=== PATIENT | male | born 1975 | race Caucasian/White ===

== ENCOUNTER → 2016-07-18 | Outpatient (REF) | payer OTHER ==
[2016-07-18 12:31] LABS: ALBUMIN 3.7 GM/DL (3.2-5.2); ALKALINE PHOSPHATASE 96 U/L (45-117); ALT/SGPT 94 U/L (12-78); ANION GAP 12 MEQ/L (8-16); AST/SGOT 124 U/L (15-37); BILIRUBIN,TOTAL 0.8 MG/DL (0.2-1.0); BLOOD UREA NITROGEN 8 MG/DL (7-18); CARBON DIOXIDE LEVEL 29 MEQ/L (21-32); CHLORIDE LEVEL 99 MEQ/L (98-107); CHOLESTEROL LEVEL 240 MG/DL (<200); CREATININE FOR GFR 0.87 MG/DL (0.70-1.30); GLOMERULAR FILTRATION RATE > 60.0 (>60); GLUCOSE, FASTING 172 MG/DL (70-105); SODIUM LEVEL 140 MEQ/L (136-145); TOTAL PROTEIN 7.4 GM/DL (6.4-8.2); TRIGLYCERIDES LEVEL 218 MG/DL (<150); URIC ACID 5.2 MG/DL (3.5-7.2)
== END ==
LOC: M SFHCPLAZ 08:02
PROVIDERS: ATTEND Physician Assistant
DX: I10 Essential (primary) hypertension (principal); R20.2 Paresthesia of skin; E66.9 Obesity, unspecified; E78.2 Mixed hyperlipidemia; M79.672 Pain in left foot; M79.671 Pain in right foot

== ENCOUNTER → 2016-08-15 | Outpatient (REF) | payer SELFPAY ==
[2016-08-15 14:00] LABS: TOTAL PROTEIN 7.7 GM/DL (6.4-8.2)
[2016-08-19 00:06] LABS: Lyme Disease IgG/IgM Antibodie <0.91 ISR (0.00-0.90); Lyme Disease IgM Ab Quantitati <0.80 index (0.00-0.79)
== END ==
LOC: M LABNEURO 13:08
PROVIDERS: ATTEND Psychiatry & Neurology Neurology
DX: G62.9 Polyneuropathy, unspecified (principal); E11.9 Type 2 diabetes mellitus without complications

== ENCOUNTER → 2016-08-19 | Outpatient (REF) | payer SELFPAY | LOC: M LABNEURO 12:50 | PROVIDERS: ATTEND Psychiatry & Neurology Neurology | DX: E11.40 Type 2 diabetes mellitus with diabetic neuropathy, unspecified (principal) ==

== ENCOUNTER → 2016-12-02 | Outpatient (REF) | payer OTHER | LOC: M LABNEURO 11:07 | PROVIDERS: ATTEND Psychiatry & Neurology Neurology | DX: M06.9 Rheumatoid arthritis, unspecified (principal); M25.50 Pain in unspecified joint ==

== ENCOUNTER 2017-03-16 17:50 | Inpatient (IN) | payer OTHER ==
[~2017-03-16] VITALS: Ht 165.1 cm; Wt 108.4 kg
[2017-03-16 18:03] VITALS: O2SAT 94
[2017-03-16] MEDS ORDERED: FLUV100T2 PO ×2 (18:13→20:21)
[2017-03-16] MEDS ORDERED: ATOR1TAB19 PO (18:13)
[2017-03-16] MEDS ORDERED: CHLO25TA PO (18:13)
[2017-03-16] MEDS ORDERED: NEUR600T PO (18:13)
[2017-03-16] MEDS ORDERED: AMLO5TAB2 PO (18:13)
[2017-03-16 18:14] LABS: VENOUS BASE EXCESS 17.2 (-2.0-2.0); VENOUS O2 SATURATION 99.1 % (60.0-80.0); VENOUS STANDARD HCO3 41.3 MEQ/L
[2017-03-16] MEDS ORDERED: MELOPOW XX (18:16)
[2017-03-16 18:21] LABS: BASO % 0.2 % (0.0-1.0); EOS % 0.1 % (0.0-3.0); LYMPH # 0.9 10^3/uL (1.5-4.5); LYMPH % 8.3 % (24.0-44.0); MEAN CORPUSCULAR HEMOGLOBIN 33.6 pg (27.0-33.0); MEAN CORPUSCULAR VOLUME 88.3 fl (80.0-96.0); MONO # 1.1 10^3/uL (0.0-0.8); MONO % 9.9 % (0.0-5.0); NEUTROPHILS # 8.7 10^3/uL (1.8-7.7); NEUTROPHILS % 80.5 % (36.0-66.0); PLATELET COUNT, AUTOMATED 242 10^3/uL (150-450); RED CELL DISTRIBUTION WIDTH 12.9 % (11.5-14.5); WHITE BLOOD COUNT 10.8 10^3/uL (4.0-10.0)
[2017-03-16 18:25] LABS: ADD MORPHOLOGY? YES; MEAN CORPUSCULAR HGB CONC 38.1 g/dl (32.0-36.5)
--- NOTE | 2017-03-16 18:39 | REP ---
CT Head without contrast HISTORY: Altered mental status COMPARISON: 10/13/2005 There is no intraparenchymal hemorrhage, acute infarct, mass or midline shift. The ventricular system is normal in appearance. There is no extra cerebral collection. There is no fracture. The visualized sinuses are clear. IMPRESSION: There is no intracranial lesion. Signed by Kirt Araya MD 03/16/2017 06:30 P
[2017-03-16 18:53] LABS: ALBUMIN 2.9 GM/DL (3.2-5.2); ALBUMIN/GLOBULIN RATIO 0.69 (1.00-1.93); ALKALINE PHOSPHATASE 155 U/L (45-117); ALT/SGPT 46 U/L (12-78); ANION GAP 12 MEQ/L (8-16); AST/SGOT 159 U/L (15-37); BILIRUBIN,DIRECT 8.4 MG/DL (0.0-0.2); BLOOD UREA NITROGEN 9 MG/DL (7-18); CALCIUM LEVEL 7.9 MG/DL (8.5-10.1); CARBON DIOXIDE LEVEL 33 MEQ/L (21-32); CHLORIDE LEVEL 64 MEQ/L (98-107); CREATININE FOR GFR 0.88 MG/DL (0.70-1.30); GLOMERULAR FILTRATION RATE > 60.0 (>60); GLUCOSE, FASTING 103 MG/DL (70-105); TOTAL PROTEIN 7.1 GM/DL (6.4-8.2)
[2017-03-16 19:05] LABS: OSMOLALITY SERUM 233 MOSM/KG (275-295)
[2017-03-16 19:23] LABS: SODIUM LEVEL 109 MEQ/L (136-145)
[2017-03-16 19:24] LABS: POTASSIUM SERUM 2.3 MEQ/L (3.5-5.1)
[2017-03-16] MEDS ORDERED: POTASSIUM CHLORIDE 10 MEQ SR TABLET PO ONE (19:45)
[2017-03-16] MEDS ORDERED: KCL 10MEQ IN 100ML SWI (KRUN) 10 MEQ in APPROPRIATE DILUENT 1 EA IV ONE ×2 (19:45)
[2017-03-16] MEDS ORDERED: NS 1,000 ML IV STA (19:51)
[2017-03-16 20:04] LABS: URIC ACID 3.4 MG/DL (3.5-7.2)
[2017-03-16 20:12] LABS: INR 1.44
[2017-03-16] MEDS ORDERED: MELO15TA4 PO (20:21)
[2017-03-16 21:53] LABS: OSMOLALITY URINE 409 MOSM/KG (500-800)
[2017-03-16 21:59] LABS: METHADONE URINE NEGATIVE (NEGATIVE)
--- NOTE | 2017-03-16 22:10 | REPUSA ---
Clinical statement: jaundice. Findings: The liver demonstrates uniform echotexture and echogenicity, with no mass lesions. The gall bladder is unremarkable. The common bile duct was not visualized. The pancreas was not well visualize d because of overline bowel gas. The spleen is unremarkable. The right kidney measures 10.5 cm in tatiana gth and the left kidney measures 13.5 cm in length. There is no evidence of hydronephrosis or nephrol ithiasis. The aorta and inferior vena cava were not visualized. There is a small amount of free fluid inferior to the liver, extending into the right lower quadrant. Impression: 1. Limited study because of patient's body habitus and large amount of bowel gas. 2. Small amount of free fluid in the right abdomen as described. 3. No other acute findings.
[2017-03-16 22:38] VITALS: BP 129/61
[2017-03-16 22:45] LABS: ANION GAP 11 MEQ/L (8-16); BLOOD UREA NITROGEN 9 MG/DL (7-18); CARBON DIOXIDE LEVEL 34 MEQ/L (21-32); CHLORIDE LEVEL 66 MEQ/L (98-107); CREATININE FOR GFR 0.84 MG/DL (0.70-1.30); FREE T4 1.52 NG/DL (0.76-1.46); GLOMERULAR FILTRATION RATE > 60.0 (>60); GLUCOSE, FASTING 95 MG/DL (70-105); POTASSIUM SERUM 2.5 MEQ/L (3.5-5.1); SODIUM LEVEL 111 MEQ/L (136-145)
[2017-03-16] MEDS: LACTULOSE 20 GM/30 ML SYRUP UD PO SCH (23:04)
[2017-03-16] MEDS ORDERED: LORazepam 2 MG TAB PO PRN (23:15)
[2017-03-16] MEDS: KCL 10MEQ IN 100ML SWI (KRUN) 10 MEQ in APPROPRIATE DILUENT 1 EA IV SCH ×2 (23:27)
[2017-03-16] MEDS: THIAMINE 100 MG TAB PO SCH (23:45)
[2017-03-17] VITALS (16 sets, daily range): BP systolic 84–158; BP diastolic 55–132
[2017-03-17 00:03] LABS: UREA NITROGEN RANDOM URINE 584 MG/DL
--- NOTE | 2017-03-17 00:24 | HPEPDOC ---
General Date of Admission Mar 16, 2017 at 20:53 Primary Care Physician: Kulwant Gil MD Attending Physician: PAO LIU MD Chief Complaint The patient is a 41-year-old male admitted with a reason for visit of Hepatic Encephalopathy;Hyponatremia. Source: Patient, Family Exam Limitations: Garbled speech History of Present Illness Mr. Andrade is a 41-year-old male with a known history of alcoholism. He is accompanied in the room by both his and his father, they provide most of the history as the patient has very slurred speech and really is unable to answer any questions. Apparently he has cut back on his alcohol, when he first arrived the told the nurses that he drank approximately 2 glasses of wine daily. After the father had arrived, and when I come into the room, and she told me that he drinks a beer every once in a while. I am inclined to believe the former. Apparently he has been having some malaise for the past few days, but denies any fevers, chills, and night sweats, or weight gain or weight loss. Last night he was not himself, and he was talking gibberish, his presume that this is because he was under a lot of stress lately and had not been sleeping well, therefore she put him to sleep. He was sleeping in the morning, she went to the office, by the time she got home at about 5 PM, he was having trouble dressing himself and was once again talking gibberish, therefore he was brought to the emergency department. The only new medication he has been started on his gabapentin and meloxicam. The history is unclear as the is not wholly certain, but it appears that he is seeing a neurologist for her lower extremity paresthesias, they told him he had rheumatoid arthritis, and he was started on gabapentin a few weeks ago, and then meloxicam was added just one week ago. Home Medications Scheduled Amlodipine Besylate (Amlodipine Besylate) 5 Mg Tab, 5 MG PO DAILY, (Reported) Atorvastatin Calcium (Atorvastatin Calcium) 10 Mg Tab, 10 MG PO QHS, (Reported) Chlorthalidone (Chlorthalidone) 25 Mg Tab, 25 MG PO DAILY, (Reported) Fluvoxamine Maleate (Fluvoxamine Maleate) 100 Mg Tab, 150 MG PO QAM, (Reported) Fluvoxamine Maleate (Fluvoxamine Maleate) 100 Mg Tab, 50 MG PO QPM, (Reported) Gabapentin (Neurontin) 600 Mg Tab, 600 MG PO TID, (Reported) Scheduled PRN Meloxicam (Meloxicam) 15 Mg Tab, 15 MG PO DAILY PRN for PAIN, (Reported) Allergies Coded Allergies: Lisinopril (Verified Allergy, Severe, lip swelling, 03/16/17) Past Medical History Medical History Hypertension Hyperlipidemia Obesity Familial hypocalciuric hypercalcemia Depression Intermittent alcohol abuse Intermittently elevated LFTs OCD Alcoholic fatty liver Surgical History No past surgeries Family History Mother has hyperlipidemia, fibromyalgia, borderline personality disorder. Father is alive and well with no known medical problems. He does have 1 sibling who had brain cancer 10 years ago, but was treated and is now in remission. Both of his grandmother suffered from Alzheimer's dementia. Otherwise, there is no history of heart attack, stroke, alcoholism, diabetes, or cancer that runs in the family. Social History * Smoker: former Smoker (used to smoke a pipe years ago) Alcohol: heavy (apparently he has drank 1-2 glasses of wine daily for the past 2-3 years) Drugs: denies Recent Travel/Sick Contacts: Denies: Recent travel Pets in the home: Dog(s), Other (victor hugo) Psychosocial History: Depression, Obsess/compul disorder Review of Symptoms Other systems Unobtainable secondary to patient condition Physical Examination General Exam: Positive: Mild Distress, Negative: Alert, Cooperative Eye Exam: Positive: PERRLA, Conjunctiva & lids normal, EOMI, Sclera icteric ENT Exam: Positive: Atraumatic, Mucous membr. moist/pink, Pharynx Normal, Tongue Midline Neck Exam: Positive: Supple, Negative: JVD (JVD is difficult to assess due to large body habitus), thyromegaly Chest Exam: Positive: Clear to auscultation, Normal air movement Heart Exam: Positive: Rate Normal, Regular Rhythm, Normal S1, Normal S2, Negative: Murmurs, Rubs Telemetry: Positive: No significant arrhythmia Abdomen Exam: Positive: Normal bowel sounds, Soft, Other (ascites), Negative: Tenderness, Hepatospenomegaly (liver is not palpable secondary to ascites) Extremity Exam: Positive: Edema (trace edema of the lower extremities bilaterally), Normal pulses, Other (he does have some bilateral lower extremity erythema extending from just above the ankles to just below the knees, apparently this is been present for a few weeks now.), Negative: Clubbing, Cyanosis Skin Exam: Positive: Nl turgor and temperature, Negative: Breakdown, Lesion Neuro Exam: Positive: Strength at 5/5 X4 ext, Normal Tone, Negative: Normal Speech Psych Exam: Negative: Mental status NL, Memory Intact, Oriented x 3 Vital Signs Vital Signs Date Time Temp Pulse Resp B/P (MAP) Pulse Ox O2 Delivery O2 Flow Rate FiO2 03/16/17 22:38 100.0 87 18 129/61 (83) 96 Room Air 03/16/17 18:27 2.0 Laboratory Data Labs 24H Laboratory Tests 2 03/16/17 18:02: White Blood Count 10.8H, Red Blood Count 3.66L, Hemoglobin 12.3L, Hematocrit 32.3L, Mean Corpuscular Volume 88.3, Mean Corpuscular Hemoglobin 33.6H, Mean Corpuscular Hemoglobin Concent 38.1H, Red Cell Distribution Width 12.9, Platelet Count 242, Neutrophils (%) (Auto) 80.5H, Lymphocytes (%) (Auto) 8.3L, Monocytes (%) (Auto) 9.9H, Eosinophils (%) (Auto) 0.1, Basophils (%) (Auto) 0.2 , Neutrophils # (Auto) 8.7H, Lymphocytes # (Auto) 0.9L, Monocytes # (Auto) 1.1H , Eosinophils # (Auto) 0.0, Basophils # (Auto) 0.0, Immature Granulocyte # (Auto ) 0.1H, Nucleated Red Blood Cells % (auto) 0.3H, Platelet Estimate NORMAL, Prothrombin Time 17.9H, Prothromb Time International Ratio 1.44, Activated Partial Thromboplast Time 37.4, Blood Gas Bicarbonate Standard 41.3, Venous Blood pH 7.594H, Venous Blood Partial Pressure CO2 43.0, Venous Blood Partial Pressure O2 108.0H, Venous Blood Total Carbon Dioxide 42.0H, Venous Blood HCO3 40.7H, Venous Blood Oxygen Saturation 99.1H, Venous Blood Base Excess 17.2H, Anion Gap 12, Glomerular Filtration Rate > 60.0, Lactic Acid Level 2.1*H, Uric Acid 3.4L, Calcium Level 7.9L, Aspartate Amino Transf (AST/SGOT) 159H, Alanine Aminotransferase (ALT/SGPT) 46, Alkaline Phosphatase 155H, Total Bilirubin 14.0H , Direct Bilirubin 8.4H, Ammonia 109H, Total Creatine Kinase 419H, Creatine Kinase MB 4.0H, Creatine Kinase MB Relative Index 0.95, Troponin I 0.02, Total Protein 7.1, Albumin 2.9L, Albumin/Globulin Ratio 0.69L, Thyroid Stimulating Hormone (TSH) 4.660H, Salicylates Level < 1.7L, Acetaminophen Level < 2.0L, Ethyl Alcohol Level < 0.003 03/16/17 21:24: Urine Random Osmolality 409L, Urine Random Creatinine 190.0, Urine Random Sodium < 10, Urine Random Potassium 15.3 03/16/17 21:25: Urine Amphetamines Screen NEGATIVE, Urine Benzodiazepines Screen NEGATIVE, Urine Opiates Screen NEGATIVE, Urine Methadone Screen NEGATIVE, Urine Barbiturates Screen NEGATIVE, Urine Phencyclidine Screen NEGATIVE, Urine Cocaine Metabolite Screen NEGATIVE, Urine Cannabinoids Screen NEGATIVE 03/16/17 22:11: Anion Gap 11, Glomerular Filtration Rate > 60.0, Calcium Level 8.0L, Blood Urea Nitrogen 9, Creatinine 0.84, Sodium Level 111*L, Potassium Level 2.5*L, Chloride Level 66L, Carbon Dioxide Level 34H, Free Thyroxine 1.52H CBC/BMP Laboratory Tests 03/16/17 18:02 Red Blood Count 3.66 L, Mean Corpuscular Volume 88.3, Mean Corpuscular Hemoglobin 33.6 H, Mean Corpuscular Hemoglobin Concent 38.1 H, Red Cell Distribution Width 12.9, Neutrophils (%) (Auto) 80.5 H, Lymphocytes (%) (Auto) 8.3 L, Monocytes (%) (Auto) 9.9 H, Eosinophils (%) (Auto) 0.1, Basophils (%) ( Auto) 0.2, Neutrophils # (Auto) 8.7 H, Lymphocytes # (Auto) 0.9 L, Monocytes # ( Auto) 1.1 H, Eosinophils # (Auto) 0.0, Basophils # (Auto) 0.0 03/16/17 22:11 Calcium Level 8.0 L Problems (1) Alcoholic hepatitis with ascites Status: Acute Problem Text: He has an elevated serum ammonia level, elevated bilirubin, low sodium, elevated INR with a known history of cirrhosis. All of these may be contributing to his altered mental status. Meld score upon admission is 28.6 which has an estimated 19.6% 3 month mortality. His Maddrey's discriminant function score is 34.2, which is greater than 32, therefore steroids are indicated for liver failure, he'll be started on prednisolone 40 mg by mouth daily (2) Hyponatremia Status: Acute Problem Text: He does have trace edema of the lower extremities, and what appears to be a large amount of ascites, and he is currently hypertensive, it is difficult to determine JVD because of his body habitus and thick neck, however I do suspect that he is hypervolemic. Therefore being hypervolemic hyponatremia with urine sodium less than 10 and a fractional excretion of sodium of less than 1% (although this may not be reliable as he does take a thiazide diuretic at home, urine urea has been ordered, but is still pending) and given his history of known alcoholic cirrhosis, I suspect that his hyponatremia is in part caused/exacerbated by volume overload due to cirrhosis. He was given 700-800 mL of saline in the ED, plus an additional 2K runs, therefore he is already been given approximately 1 L of fluid, he does appear to be putting out urine, therefore we will repeat his sodium throughout the night. Consideration may be given to using loop diuretics instead of fluid as I suspect he is already fluid overloaded. Goal for him would be no more than a correction of 6 over the next 24 hours given that this is more likely chronic. (3) Hypokalemia Status: Acute Problem Text: IV K runs have been initiated, as the patient currently is not able to tolerate by mouth meds, due to his altered mental status (4) Serum ammonia increased Status: Acute Problem Text: Started on lactulose every 8 hours (5) Hepatic encephalopathy Status: Acute (6) Hyperbilirubinemia Status: Acute (7) Elevated INR Status: Acute (8) Alcoholism Status: Chronic (9) Alcoholic fatty liver Status: Chronic (10) Hypertension Status: Chronic (11) Hyperlipidemia Status: Chronic (12) Familial hypocalciuric hypercalcemia Status: Chronic (13) Anemia Status: Chronic (14) History of depression Status: Chronic (15) History of OCD (obsessive compulsive disorder) Status: Chronic Plan / VTE VTE Prophylaxis Ordered?: Yes (teds and sequentials) VTE Exclusion Mechanical Proph: Other Plan / Urinary Catheter Reason for insertion/continuin: Critical Pt monitoring CONCHITA CHUNG DO Mar 16, 2017 23:47
--- NOTE | 2017-03-17 01:11 | REP ---
Clinical: Altered mental status. Comparison: None. Findings: Examination is limited by portable technique and underpenetration. Mediastinum and cardiac silhouette are within normal limits. Left lower lobe opacity cannot be excluded including possible layering effusion. No pneumothorax. Right hemithorax appears well aerated and clear. Impression: Cannot exclude left lower lobe opacity/possible effusion. Signed by Javi Heredia MD 03/17/2017 01:03 A
[2017-03-17] MEDS: KCL 10MEQ IN 100ML SWI (KRUN) 10 MEQ in APPROPRIATE DILUENT 1 EA IV SCH ×6 (01:35→04:10)
[2017-03-17 02:21] LABS: ANION GAP 10 MEQ/L (8-16); BLOOD UREA NITROGEN 10 MG/DL (7-18); CALCIUM LEVEL 8.1 MG/DL (8.5-10.1); CARBON DIOXIDE LEVEL 35 MEQ/L (21-32); CHLORIDE LEVEL 67 MEQ/L (98-107); CREATININE FOR GFR 0.71 MG/DL (0.70-1.30); GLOMERULAR FILTRATION RATE > 60.0 (>60); GLUCOSE, FASTING 106 MG/DL (70-105)
[2017-03-17 02:25] LABS: SODIUM LEVEL 112 MEQ/L (136-145)
[2017-03-17] MEDS: POTASSIUM CHLORIDE 10 MEQ SR TABLET PO SCH ×4 (03:00→08:14)
--- NOTE | 2017-03-17 04:50 | REPUSA ---
CLINICAL HISTORY: Edema. COMMENTS: Real time sonography with duplex doppler of the extremities bilaterally was performed with attention to the major deep venous structures. Evaluation reveals the common femoral, superficial femoral and popliteal veins bilaterally to be comp letely compressible without intraluminal thrombus. There is normal spontaneous phasic flow and augmen tation in all deep veins. The greater saphenous/common femoral vein junctions are patent bilaterally. IMPRESSION: No evidence of DVT in the lower extremities bilaterally. Thank you for your kind referral of this patient.
[2017-03-17 05:15] LABS: BASO % 0.2 % (0.0-1.0); EOS % 0.2 % (0.0-3.0); IMMATURE GRANULOCYTE % 0.6 % (0-0); LYMPH # 0.9 10^3/uL (1.5-4.5); LYMPH % 8.3 % (24.0-44.0); MEAN CORPUSCULAR HEMOGLOBIN 33.4 pg (27.0-33.0); MEAN CORPUSCULAR VOLUME 89.4 fl (80.0-96.0); MONO # 1.2 10^3/uL (0.0-0.8); MONO % 11.3 % (0.0-5.0); NEUTROPHILS # 8.6 10^3/uL (1.8-7.7); NEUTROPHILS % 79.4 % (36.0-66.0); PLATELET COUNT, AUTOMATED 227 10^3/uL (150-450); RED CELL DISTRIBUTION WIDTH 12.9 % (11.5-14.5); WHITE BLOOD COUNT 10.8 10^3/uL (4.0-10.0)
[2017-03-17] MEDS: LACTULOSE 20 GM/30 ML SYRUP UD PO SCH ×3 (05:28→20:59)
[2017-03-17 05:31] LABS: MEAN CORPUSCULAR HGB CONC 37.4 g/dl (32.0-36.5)
[2017-03-17 05:40] LABS: ALBUMIN/GLOBULIN RATIO 0.79 (1.00-1.93); ALKALINE PHOSPHATASE 154 U/L (45-117); ALT/SGPT 48 U/L (12-78); ANION GAP 8 MEQ/L (8-16); AST/SGOT 152 U/L (15-37); BILIRUBIN,TOTAL 14.5 MG/DL (0.2-1.0); BLOOD UREA NITROGEN 9 MG/DL (7-18); CALCIUM LEVEL 8.3 MG/DL (8.5-10.1); CARBON DIOXIDE LEVEL 37 MEQ/L (21-32); CHLORIDE LEVEL 67 MEQ/L (98-107); CREATININE FOR GFR 0.81 MG/DL (0.70-1.30); GLOMERULAR FILTRATION RATE > 60.0 (>60); GLUCOSE, FASTING 97 MG/DL (70-105); POTASSIUM SERUM 2.5 MEQ/L (3.5-5.1); SODIUM LEVEL 112 MEQ/L (136-145); TOTAL PROTEIN 6.8 GM/DL (6.4-8.2)
[2017-03-17 06:01] LABS: MAGNESIUM LEVEL 2.6 MG/DL (1.8-2.4)
--- NOTE | 2017-03-17 08:11 | ECGEPIP ---
Stationary ECG Study [facility] - ED Test Date: 2017-03-16 Pat Name: ELYSIA OWEN Department: Room: [place] [address] Gender: M [employer]: : 1975 Requested By: Veronica Roland Order Number: [id number] Reading MD: Francois Ritter Measurements Intervals [place] Rate: 84 P: 24 MI: 194 QRS: 62 QRSD: 124 T: 2 QT: 416 QTc: 494 Interpretive Statements SINUS RHYTHM WITH SINUS ARRHYTHMIA POSSIBLE LAE INFERIOR MYOCARDIAL INFARCTION, OF INDETERMINATE AGE NO PRIORS Electronically Signed On 03-17-2017 8:10:59 EDT by Francois Ritter
[2017-03-17] MEDS: FOLIC ACID 1 MG TAB PO SCH (08:14)
[2017-03-17] MEDS: MULTIVITAMINS/MINERALS THERAP 1 TAB PO SCH (08:14)
[2017-03-17] MEDS: prednisoLONE (PRELONE) 15MG/5ML SYRUP UDC PO SCH (08:16)
[2017-03-17] MEDS: THIAMINE 100 MG TAB PO SCH ×2 (08:20→20:58)
[2017-03-17] MEDS ORDERED: amLODIPine 5 MG TAB PO SCH (09:00)
[2017-03-17] MEDS ORDERED: KCL 40MEQ in NS 1000ML 1,000 ML IV SCH (10:15)
[2017-03-17 10:18] LABS: ANION GAP 8 MEQ/L (8-16); BLOOD UREA NITROGEN 9 MG/DL (7-18); CALCIUM LEVEL 8.4 MG/DL (8.5-10.1); CARBON DIOXIDE LEVEL 34 MEQ/L (21-32); CHLORIDE LEVEL 71 MEQ/L (98-107); CREATININE FOR GFR 0.83 MG/DL (0.70-1.30); GLOMERULAR FILTRATION RATE > 60.0 (>60); GLUCOSE, FASTING 106 MG/DL (70-105); POTASSIUM SERUM 2.9 MEQ/L (3.5-5.1); SODIUM LEVEL 113 MEQ/L (136-145)
--- NOTE | 2017-03-17 11:40 | IPNPDOC ---
Subjective Date Seen The patient was seen on 03/17/17. Subjective Chief Complaint/HPI The patient is a 41-year-old male admitted with a reason for visit of Hepatic Encephalopathy;Hyponatremia. Events since last encounter is at bedside. Patient is a little more alert and talking some - confused but more lucid than yesterday Constitutional: Denies: Chills, Fever Pulmonary: Denies: Dyspnea, Cough Cardiovascular: Denies: Chest Pain, Palpitations Gastrointestinal: Reports: Diarrhea (2 loose BMs this morning), Denies: Nausea, Vomiting, Abdominal Pain, Constipation Objective Physical Examination General Exam: Positive: Mild Distress, Other (Some snoring respirations with sleep but no apnea. Wakens easily - confused but speech farilry clear and he knew my last name), Negative: Alert, Cooperative Eye Exam: Positive: Sclera icteric Neck Exam: Negative: JVD (JVD is difficult to assess due to large body habitus) , thyromegaly Chest Exam: Positive: Clear to auscultation, Normal air movement Heart Exam: Positive: Rate Normal, Regular Rhythm, Normal S1, Normal S2, Negative: Murmurs, Rubs Telemetry: Positive: No significant arrhythmia Abdomen Exam: Positive: Normal bowel sounds, Soft, Other (ascites with fluid wave), Negative: Tenderness, Hepatospenomegaly (liver is not palpable secondary to ascites) Extremity Exam: Positive: Edema (trace edema of the lower extremities bilaterally), Other, Negative: Clubbing, Cyanosis Skin Exam: Positive: Other skin issue (Left leg with scabed dry lesions on shins with surrounding erythema to the knee ), Negative: Breakdown, Lesion Neuro Exam: Positive: Normal Speech (+ asterixis), Other Psych Exam: Negative: Mental status NL, Memory Intact, Oriented x 3 Assessment /Plan Problems (1) Alcohol withdrawal Status: Acute Problem Text: last EthOH per 03/15/171999, slept all day 03/16/17 no h/o DTs (2) Hyponatremia Status: Acute Problem Text: hypotonic c decreased EABV 2 cirrhosis/low alb (on admission, serum Na 109/osm 233//urine Na <10/osm 409) + renal Na loss 2 CTD 25 (on baseline for HTN) given probably acute hypoNa-correct no >6/24H to avoid ODS 03/17 14:00 116, 2.9-repeat K 40 x 1 03/16 1800 109, 2.3 06/2016 Na 140, K 4.0 Dr. Kyle has been consulted from Nephrology to help manage IVF and diuretics (3) Alcoholic hepatitis with ascites Status: Acute Problem Text: He has an elevated serum ammonia level, elevated bilirubin, low sodium, elevated INR with a known history of cirrhosis. All of these may be contributing to his altered mental status. 03/17/27 Meld score upon admission is 28.6 which has an estimated 19.6% 3 month mortality. His Maddrey's discriminant function score is 34.2, which is greater than 32, therefore steroids are indicated for liver failure, he'll be started on prednisone 40 mg by mouth daily Ct/abd pelvis ordered to further evaluate Ascites fluid - he may need paracentesis 03/16 abd US: Limited study because of patient's body habitus and large amount of bowel gas. 2. Small amount of free fluid in the right abdomen as described. 3. No other acute findings. (4) Cellulitis Status: Acute Problem Text: BLE advancing tender induration/warmth x ~2W D1 cefazolin 03/17 BCX x 2 P 03/17 BLE DVT US - (5) Hepatic encephalopathy Status: Acute Problem Text: Started on lactulose every 8 hours and + cefazolin (as per cellulitis) (6) Hyperbilirubinemia Status: Acute (7) Elevated INR Status: Acute (8) Alcoholism Status: Chronic (9) Alcoholic fatty liver Status: Chronic (10) Hypertension Status: Chronic (11) Anemia Status: Chronic (12) History of depression Status: Chronic (13) History of OCD (obsessive compulsive disorder) Status: Chronic Problem Text: Normally controlled with Fluoextine - hold for now as the SSRI can worsen his hyponatremia (14) Neuropathy Status: Chronic Problem Text: Following with Neurology - was on Gabapentin for the last 2 months. On hold for now until mental status clears. (15) Rheumatoid factor positive Problem Text: Recently tested by Neurology with Rheumatoid factor positive x2. Referred to Rheumatology - appt is not until July Plan/VTE VTE Prophylaxis Ordered?: Yes (teds and sequentials) VTE Exclusion Mechanical Proph: Other Plan/Urinary Catheter Reason for insertion/continuin: Critical Pt monitoring VS, I&O, 24H, Fishbone Vital Signs/I&O Vital Signs Date Time Temp Pulse Resp B/P (MAP) Pulse Ox O2 Delivery O2 Flow Rate FiO2 03/17/17 08:15 89 140/80 03/17/17 08:00 99.1 19 98 Room Air 03/17/17 06:35 2.0 I&O- Last 24 Hours up to 6 AM 03/18/17 06:00 Intake Total 210 ml Output Total 225 ml Balance -15 ml Laboratory Data 24H LABS Laboratory Tests 2 03/16/17 18:02: White Blood Count 10.8H, Red Blood Count 3.66L, Hemoglobin 12.3L, Hematocrit 32.3L, Mean Corpuscular Volume 88.3, Mean Corpuscular Hemoglobin 33.6H, Mean Corpuscular Hemoglobin Concent 38.1H, Red Cell Distribution Width 12.9, Platelet Count 242, Neutrophils (%) (Auto) 80.5H, Lymphocytes (%) (Auto) 8.3L, Monocytes (%) (Auto) 9.9H, Eosinophils (%) (Auto) 0.1, Basophils (%) (Auto) 0.2 , Neutrophils # (Auto) 8.7H, Lymphocytes # (Auto) 0.9L, Monocytes # (Auto) 1.1H , Eosinophils # (Auto) 0.0, Basophils # (Auto) 0.0, Immature Granulocyte # (Auto ) 0.1H, Nucleated Red Blood Cells % (auto) 0.3H, Platelet Estimate NORMAL, Prothrombin Time 17.9H, Prothromb Time International Ratio 1.44, Activated Partial Thromboplast Time 37.4, Blood Gas Bicarbonate Standard 41.3, Venous Blood pH 7.594H, Venous Blood Partial Pressure CO2 43.0, Venous Blood Partial Pressure O2 108.0H, Venous Blood Total Carbon Dioxide 42.0H, Venous Blood HCO3 40.7H, Venous Blood Oxygen Saturation 99.1H, Venous Blood Base Excess 17.2H, Anion Gap 12, Glomerular Filtration Rate > 60.0, Osmolality 233L, Lactic Acid Level 2.1*H, Uric Acid 3.4L, Calcium Level 7.9L, Aspartate Amino Transf (AST/ SGOT) 159H, Alanine Aminotransferase (ALT/SGPT) 46, Alkaline Phosphatase 155H, Total Bilirubin 14.0H, Direct Bilirubin 8.4H, Ammonia 109H, Total Creatine Kinase 419H, Creatine Kinase MB 4.0H, Creatine Kinase MB Relative Index 0.95, Troponin I 0.02, Total Protein 7.1, Albumin 2.9L, Albumin/Globulin Ratio 0.69L, Thyroid Stimulating Hormone (TSH) 4.660H, Salicylates Level < 1.7L, Acetaminophen Level < 2.0L, Ethyl Alcohol Level < 0.003 03/16/17 21:24: Urine Random Osmolality 409L, Urine Random Creatinine 190.0, Urine Random Sodium < 10, Urine Random Potassium 15.3, Urine Random Urea Nitrogen 584 03/16/17 21:25: Urine Amphetamines Screen NEGATIVE, Urine Benzodiazepines Screen NEGATIVE, Urine Opiates Screen NEGATIVE, Urine Methadone Screen NEGATIVE, Urine Barbiturates Screen NEGATIVE, Urine Phencyclidine Screen NEGATIVE, Urine Cocaine Metabolite Screen NEGATIVE, Urine Cannabinoids Screen NEGATIVE 03/16/17 22:11: Anion Gap 11, Glomerular Filtration Rate > 60.0, Calcium Level 8.0L, Blood Urea Nitrogen 9, Creatinine 0.84, Sodium Level 111*L, Potassium Level 2.5*L, Chloride Level 66L, Carbon Dioxide Level 34H, Free Thyroxine 1.52H 03/17/17 01:49: Anion Gap 10, Glomerular Filtration Rate > 60.0, Lactic Acid Followup at 4 Hours 1.2, Blood Urea Nitrogen 10, Creatinine 0.71, Sodium Level 112*L, Potassium Level 2.0*L, Chloride Level 67L, Carbon Dioxide Level 35H, Calcium Level 8.1L 03/17/17 05:05: Anion Gap 8, Glomerular Filtration Rate > 60.0, Blood Urea Nitrogen 9, Creatinine 0.81, Sodium Level 112*L, Potassium Level 2.5#*L, Chloride Level 67L , Carbon Dioxide Level 37H, Calcium Level 8.3L, White Blood Count 10.8H, Red Blood Count 3.77L, Hemoglobin 12.6L, Hematocrit 33.7L, Mean Corpuscular Volume 89.4, Mean Corpuscular Hemoglobin 33.4H, Mean Corpuscular Hemoglobin Concent 37.4H, Red Cell Distribution Width 12.9, Platelet Count 227, Neutrophils (%) ( Auto) 79.4H, Lymphocytes (%) (Auto) 8.3L, Monocytes (%) (Auto) 11.3H, Eosinophils (%) (Auto) 0.2, Basophils (%) (Auto) 0.2, Neutrophils # (Auto) 8.6H , Lymphocytes # (Auto) 0.9L, Monocytes # (Auto) 1.2H, Eosinophils # (Auto) 0.0, Basophils # (Auto) 0.0, Immature Granulocyte # (Auto) 0.1H, Nucleated Red Blood Cells % (auto) 0.2H, Aspartate Amino Transf (AST/SGOT) 152H, Alanine Aminotransferase (ALT/SGPT) 48, Alkaline Phosphatase 154H, Total Bilirubin 14.5H , Total Protein 6.8, Albumin 3.0L, Magnesium Level 2.6H, Albumin/Globulin Ratio 0.79L 03/17/17 09:51: Anion Gap 8, Glomerular Filtration Rate > 60.0, Blood Urea Nitrogen 9, Creatinine 0.83, Sodium Level 113*L, Potassium Level 2.9*L, Chloride Level 71L, Carbon Dioxide Level 34H, Calcium Level 8.4L CBC/BMP Laboratory Tests 03/16/17 18:02 Red Blood Count 3.66 L, Mean Corpuscular Volume 88.3, Mean Corpuscular Hemoglobin 33.6 H, Mean Corpuscular Hemoglobin Concent 38.1 H, Red Cell Distribution Width 12.9, Neutrophils (%) (Auto) 80.5 H, Lymphocytes (%) (Auto) 8.3 L, Monocytes (%) (Auto) 9.9 H, Eosinophils (%) (Auto) 0.1, Basophils (%) ( Auto) 0.2, Neutrophils # (Auto) 8.7 H, Lymphocytes # (Auto) 0.9 L, Monocytes # ( Auto) 1.1 H, Eosinophils # (Auto) 0.0, Basophils # (Auto) 0.0 03/16/17 22:11 Calcium Level 8.0 L 03/17/17 01:49 Calcium Level 8.1 L 03/17/17 05:05 Red Blood Count 3.77 L, Mean Corpuscular Volume 89.4, Mean Corpuscular Hemoglobin 33.4 H, Mean Corpuscular Hemoglobin Concent 37.4 H, Red Cell Distribution Width 12.9, Neutrophils (%) (Auto) 79.4 H, Lymphocytes (%) (Auto) 8.3 L, Monocytes (%) (Auto) 11.3 H, Eosinophils (%) (Auto) 0.2, Basophils (%) ( Auto) 0.2, Neutrophils # (Auto) 8.6 H, Lymphocytes # (Auto) 0.9 L, Monocytes # ( Auto) 1.2 H, Eosinophils # (Auto) 0.0, Basophils # (Auto) 0.0, Calcium Level 8.3 L, Aspartate Amino Transf (AST/SGOT) 152 H, Alanine Aminotransferase (ALT/ SGPT) 48, Alkaline Phosphatase 154 H, Total Bilirubin 14.5 H, Total Protein 6.8 , Albumin 3.0 L 03/17/17 09:51 Calcium Level 8.4 L LUIS FOUNTAIN PA-C Mar 17, 2017 11:40 Refugio Read M.D. Mar 17, 2017 16:54
[2017-03-17] MEDS ORDERED: SPIRONOLACTONE 25 MG TAB PO SCH (12:00)
[2017-03-17 14:33] LABS: ANION GAP 10 MEQ/L (8-16); BLOOD UREA NITROGEN 9 MG/DL (7-18); CALCIUM LEVEL 8.4 MG/DL (8.5-10.1); CARBON DIOXIDE LEVEL 34 MEQ/L (21-32); CHLORIDE LEVEL 72 MEQ/L (98-107); CREATININE FOR GFR 0.81 MG/DL (0.70-1.30); GLOMERULAR FILTRATION RATE > 60.0 (>60); GLUCOSE, FASTING 123 MG/DL (70-105); POTASSIUM SERUM 2.9 MEQ/L (3.5-5.1); SODIUM LEVEL 116 MEQ/L (136-145)
[2017-03-17] MEDS: ceFAZolin SOD 1 GM in D5W MINI-BAG PLUS 50 ML IV SCH (18:14)
[2017-03-17 18:43] LABS: ANION GAP 8 MEQ/L (8-16); BLOOD UREA NITROGEN 9 MG/DL (7-18); CALCIUM LEVEL 8.8 MG/DL (8.5-10.1); CARBON DIOXIDE LEVEL 35 MEQ/L (21-32); CHLORIDE LEVEL 75 MEQ/L (98-107); CREATININE FOR GFR 0.95 MG/DL (0.70-1.30); GLOMERULAR FILTRATION RATE > 60.0 (>60); GLUCOSE, FASTING 132 MG/DL (70-105); POTASSIUM SERUM 3.1 MEQ/L (3.5-5.1)
[2017-03-17 18:48] LABS: SODIUM LEVEL 118 MEQ/L (136-145)
[2017-03-17] MEDS ORDERED: NYSTATIN 100,000 UNITS/GM TOPICAL PWD 15 GM TOP PRN (19:00)
[2017-03-17] MEDS ORDERED: ATORVASTATIN 10 MG TAB PO SCH (21:00)
[2017-03-17 22:37] LABS: ANION GAP 5 MEQ/L (8-16); BLOOD UREA NITROGEN 9 MG/DL (7-18); CARBON DIOXIDE LEVEL 37 MEQ/L (21-32); CHLORIDE LEVEL 78 MEQ/L (98-107); CREATININE FOR GFR 0.92 MG/DL (0.70-1.30); GLOMERULAR FILTRATION RATE > 60.0 (>60); GLUCOSE, FASTING 133 MG/DL (70-105); SODIUM LEVEL 120 MEQ/L (136-145)
[2017-03-17 22:51] LABS: POTASSIUM SERUM 2.6 MEQ/L (3.5-5.1)
[2017-03-17] MEDS: POTASSIUM CHLORIDE 10 MEQ SR TABLET PO ONE ×2 (23:00→23:12)
[2017-03-18] VITALS (21 sets, daily range): BP systolic 122–166; BP diastolic 61–100
[2017-03-18] MEDS: POTASSIUM CHLORIDE 10 MEQ SR TABLET PO ONE ×2 (01:00→01:04)
[2017-03-18] MEDS: ceFAZolin SOD 1 GM in D5W MINI-BAG PLUS 50 ML IV SCH ×3 (01:28→17:31)
[2017-03-18] MEDS: KCL 10MEQ IN 100ML SWI (KRUN) 10 MEQ in APPROPRIATE DILUENT 1 EA IV SCH ×20 (01:35→18:08)
[2017-03-18 02:50] LABS: ANION GAP 8 MEQ/L (8-16); BLOOD UREA NITROGEN 10 MG/DL (7-18); CALCIUM LEVEL 8.7 MG/DL (8.5-10.1); CARBON DIOXIDE LEVEL 35 MEQ/L (21-32); CHLORIDE LEVEL 79 MEQ/L (98-107); CREATININE FOR GFR 0.83 MG/DL (0.70-1.30); GLOMERULAR FILTRATION RATE > 60.0 (>60); GLUCOSE, FASTING 126 MG/DL (70-105); POTASSIUM SERUM 2.6 MEQ/L (3.5-5.1); SODIUM LEVEL 122 MEQ/L (136-145)
[2017-03-18 03:44] LABS: ABG BASE EXCESS 9.1 (-2.0-2.0); ABG HCO3 32.9 MEQ/L (22.0-26.0); ABG PARTIAL PRESSURE CO2 41.8 mmHg (35.0-45.0); ABG PARTIAL PRESSURE O2 69.5 mmHg (75.0-100.0); ABG STANDARD HCO3 32.8 MEQ/L (22.0-26.0); ABG TOTAL CO2 34.2 MEQ/L (22.0-29.0); ABG pH (ARTERIAL) 7.514 UNITS (7.350-7.450)
[2017-03-18 04:54] LABS: BASO % 0.2 % (0.0-1.0); EOS % 0.1 % (0.0-3.0); IMMATURE GRANULOCYTE % 0.9 % (0-0); LYMPH # 1.1 10^3/uL (1.5-4.5); LYMPH % 8.3 % (24.0-44.0); MEAN CORPUSCULAR HEMOGLOBIN 34.2 pg (27.0-33.0); MEAN CORPUSCULAR HGB CONC 37.3 g/dl (32.0-36.5); MEAN CORPUSCULAR VOLUME 91.7 fl (80.0-96.0); MONO # 1.4 10^3/uL (0.0-0.8); MONO % 10.2 % (0.0-5.0); NEUTROPHILS # 10.6 10^3/uL (1.8-7.7); NEUTROPHILS % 80.3 % (36.0-66.0); PLATELET COUNT, AUTOMATED 266 10^3/uL (150-450); RED CELL DISTRIBUTION WIDTH 13.7 % (11.5-14.5); WHITE BLOOD COUNT 13.2 10^3/uL (4.0-10.0)
[2017-03-18 05:18] LABS: ALBUMIN/GLOBULIN RATIO 0.67 (1.00-1.93); ALKALINE PHOSPHATASE 171 U/L (45-117); ALT/SGPT 48 U/L (12-78); ANION GAP 6 MEQ/L (8-16); AST/SGOT 132 U/L (15-37); BILIRUBIN,TOTAL 14.1 MG/DL (0.2-1.0); BLOOD UREA NITROGEN 10 MG/DL (7-18); CALCIUM LEVEL 8.5 MG/DL (8.5-10.1); CARBON DIOXIDE LEVEL 37 MEQ/L (21-32); CHLORIDE LEVEL 79 MEQ/L (98-107); CREATININE FOR GFR 0.85 MG/DL (0.70-1.30); GLOMERULAR FILTRATION RATE > 60.0 (>60); GLUCOSE, FASTING 113 MG/DL (70-105); POTASSIUM SERUM 3.2 MEQ/L (3.5-5.1); SODIUM LEVEL 122 MEQ/L (136-145); TOTAL PROTEIN 7.5 GM/DL (6.4-8.2)
[2017-03-18] MEDS: LACTULOSE 20 GM/30 ML SYRUP UD PO SCH ×3 (05:37→21:14)
[2017-03-18 10:43] LABS: ANION GAP 6 MEQ/L (8-16); BLOOD UREA NITROGEN 11 MG/DL (7-18); CALCIUM LEVEL 8.7 MG/DL (8.5-10.1); CARBON DIOXIDE LEVEL 32 MEQ/L (21-32); CHLORIDE LEVEL 82 MEQ/L (98-107); GLOMERULAR FILTRATION RATE > 60.0 (>60); GLUCOSE, FASTING 108 MG/DL (70-105); POTASSIUM SERUM 3.3 MEQ/L (3.5-5.1); SODIUM LEVEL 120 MEQ/L (136-145)
[2017-03-18] MEDS: KCL 20MEQ IN 0.45NS 1000ML 1,000 ML IV SCH (10:48)
--- NOTE | 2017-03-18 12:07 | IPNPDOC ---
Subjective Date Seen The patient was seen on 03/18/17. Subjective Chief Complaint/HPI The patient is a 41-year-old male admitted with a reason for visit of Hepatic Encephalopathy;Hyponatremia. Events since last encounter Patient received Ativan last pm after becoming aggitated. He is now sedated and unresponsive Constitutional: Denies: Fever Gastrointestinal: Denies: Nausea, Vomiting Objective Physical Examination General Exam: Positive: Other (unarousable with snoring respirations. No signs of apnea), Negative: Alert, Cooperative Eye Exam: Positive: Sclera icteric Neck Exam: Negative: thyromegaly Chest Exam: Positive: Clear to auscultation, Normal air movement Heart Exam: Positive: Rate Normal, Regular Rhythm, Normal S1, Normal S2, Negative: Murmurs, Rubs Telemetry: Positive: No significant arrhythmia Abdomen Exam: Positive: Normal bowel sounds, Soft, Other (Proterberant with + fluid wave), Negative: Tenderness, Hepatospenomegaly (liver is not palpable secondary to ascites) Extremity Exam: Positive: Edema (trace edema of the lower extremities bilaterally), Negative: Clubbing, Cyanosis Skin Exam: Positive: Other skin issue (Left leg with scabed dry lesions on shins with surrounding erythema to the knee, right Le edema has resolved), Negative: Breakdown, Lesion Psych Exam: Negative: Mental status NL Assessment /Plan Problems (1) Alcoholic hepatitis with ascites Status: Acute Problem Text: He has an elevated serum ammonia level, elevated bilirubin, low sodium, elevated INR with a known history of cirrhosis. All of these may be contributing to his altered mental status. Ct/abd pelvis ordered to further evaluate Ascites fluid - he may need paracentesis 03/17/27 Meld score upon admission is 28.6 which has an estimated 19.6% 3 month mortality. His Maddrey's discriminant function score is 34.2, which is greater than 32, therefore steroids are indicated for liver failure, he'll be started on prednisone 40 mg by mouth daily 03/16 abd US: Limited study because of patient's body habitus and large amount of bowel gas. 2. Small amount of free fluid in the right abdomen as described. 3. No other acute findings. (2) Hyponatremia Status: Acute Problem Text: 03/18 - Na+ improving slowing with IVF and diuretics managed by Nephrology - unable to take orals currently due to sedation so spironolactone on hold hypotonic c decreased EABV 2 cirrhosis/low alb (on admission, serum Na 109/osm 233//urine Na <10/osm 409) + renal Na loss 2 CTD 25 (on baseline for HTN) given probably acute hypoNa-correct no >6/24H to avoid ODS (3) Alcohol withdrawal Status: Acute Problem Text: last EthOH per 03/15/171999, slept all day 03/16/17 Was given Ativan x 1 dose last pm - now sedated. Ativan d/c'd (4) Cellulitis Status: Acute Problem Text: 03/18 - Right lower ext erythema improved. Left persists but slightly less erythematous D2 cefazolin 03/17 BCX x 2 P 03/17 BLE DVT US - (5) Hepatic encephalopathy Status: Acute Problem Text: 03/17 - Started on lactulose every 8 hours and + cefazolin (as per cellulitis) Unable to take orals currently. Re-check ammonia level - may need to give Lactulose via NG if remains sedated (6) Hyperbilirubinemia Status: Acute (7) Elevated INR Status: Acute (8) Alcoholism Status: Chronic (9) Alcoholic fatty liver Status: Chronic (10) Hypertension Status: Chronic (11) Anemia Status: Chronic (12) History of depression Status: Chronic (13) History of OCD (obsessive compulsive disorder) Status: Chronic Problem Text: Normally controlled with Fluoextine - hold for now as the SSRI can worsen his hyponatremia (14) Neuropathy Status: Chronic Problem Text: Following with Neurology - was on Gabapentin for the last 2 months. On hold for now until mental status clears. (15) Rheumatoid factor positive Problem Text: Recently tested by Neurology with Rheumatoid factor positive x2. Referred to Rheumatology - appt is not until July Plan/VTE VTE Prophylaxis Ordered?: Yes (teds and sequentials) VTE Exclusion Mechanical Proph: Other Plan/Urinary Catheter Reason for insertion/continuin: Critical Pt monitoring Plan Family Medicine Attending Note: Patient seen and examined this morning; I discussed his care with CHING Watts and I agree with her note as documented. He received a dose of lorazepam 2 mg last night for agitation related to his alcohol withdrawal, and subsequently was fairly somnolent overnight and this morning. Lorazepam has now been discontinued, and if he were to need this again in the future we would give a lower dose. Electrolytes are being managed by Nephrology - Dr. Kyle adjusted his IVF today. Sodium is stable today, potassium has improved since discharge. CT of A/P was done today but read is pending. He may need a paracentesis in the future. Continue cefazolin for possible cellulitis (KES) VS, I&O, 24H, Fishbone Vital Signs/I&O Vital Signs Date Time Temp Pulse Resp B/P (MAP) Pulse Ox O2 Delivery O2 Flow Rate FiO2 03/18/17 11:00 87 24 156/93 (114) 96 Nasal Cannula 2.0 03/18/17 08:00 99.3 I&O- Last 24 Hours up to 6 AM 03/19/17 06:00 Intake Total 100 ml Output Total 300 ml Balance -200 ml Laboratory Data 24H LABS Laboratory Tests 2 03/17/17 13:53: Anion Gap 10, Glomerular Filtration Rate > 60.0, Blood Urea Nitrogen 9, Creatinine 0.81, Sodium Level 116*L, Potassium Level 2.9*L, Chloride Level 72L, Carbon Dioxide Level 34H, Calcium Level 8.4L 03/17/17 18:11: Anion Gap 8, Glomerular Filtration Rate > 60.0, Blood Urea Nitrogen 9, Creatinine 0.95, Sodium Level 118*L, Potassium Level 3.1L, Chloride Level 75L, Carbon Dioxide Level 35H, Calcium Level 8.8 03/17/17 22:05: Anion Gap 5L, Glomerular Filtration Rate > 60.0, Blood Urea Nitrogen 9, Creatinine 0.92, Sodium Level 120L, Potassium Level 2.6*L, Chloride Level 78L, Carbon Dioxide Level 37H, Calcium Level 9.0 03/18/17 02:03: Anion Gap 8, Glomerular Filtration Rate > 60.0, Blood Urea Nitrogen 10, Creatinine 0.83, Sodium Level 122L, Potassium Level 2.6*L, Chloride Level 79L, Carbon Dioxide Level 35H, Calcium Level 8.7 03/18/17 03:25: Blood Gas Bicarbonate Standard 32.8H, Arterial Blood pH 7.514H, Arterial Blood Partial Pressure CO2 41.8, Arterial Blood Partial Pressure O2 69.5L, Arterial Blood Total CO2 34.2H, Arterial Blood HCO3 32.9H, Arterial Blood Base Excess 9.1H, Arterial Blood Oxygen Saturation 94.7L 03/18/17 04:46: White Blood Count 13.2H, Red Blood Count 3.74L, Hemoglobin 12.8L, Hematocrit 34.3L, Mean Corpuscular Volume 91.7, Mean Corpuscular Hemoglobin 34.2H, Mean Corpuscular Hemoglobin Concent 37.3H, Red Cell Distribution Width 13.7, Platelet Count 266, Neutrophils (%) (Auto) 80.3H, Lymphocytes (%) (Auto) 8.3L, Monocytes (%) (Auto) 10.2H, Eosinophils (%) (Auto) 0.1, Basophils (%) (Auto) 0.2 , Neutrophils # (Auto) 10.6H, Lymphocytes # (Auto) 1.1L, Monocytes # (Auto) 1.4H , Eosinophils # (Auto) 0.0, Basophils # (Auto) 0.0, Immature Granulocyte # (Auto ) 0.1H, Nucleated Red Blood Cells % (auto) 0.2H, Anion Gap 6L, Glomerular Filtration Rate > 60.0, Blood Urea Nitrogen 10, Creatinine 0.85, Sodium Level 122L, Potassium Level 3.2#L, Chloride Level 79L, Carbon Dioxide Level 37H, Calcium Level 8.5, Aspartate Amino Transf (AST/SGOT) 132H, Alanine Aminotransferase (ALT/SGPT) 48, Alkaline Phosphatase 171H, Total Bilirubin 14.1H , Total Protein 7.5, Albumin 3.0L, Magnesium Level 3.0H, Albumin/Globulin Ratio 0.67L 03/18/17 10:04: Anion Gap 6L, Glomerular Filtration Rate > 60.0, Blood Urea Nitrogen 11, Creatinine 0.80, Sodium Level 120L, Potassium Level 3.3L, Chloride Level 82L, Carbon Dioxide Level 32, Calcium Level 8.7 CBC/BMP Laboratory Tests 03/17/17 13:53 Calcium Level 8.4 L 03/17/17 18:11 Calcium Level 8.8 03/17/17 22:05 Calcium Level 9.0 03/18/17 02:03 Calcium Level 8.7 03/18/17 04:46 Red Blood Count 3.74 L, Mean Corpuscular Volume 91.7, Mean Corpuscular Hemoglobin 34.2 H, Mean Corpuscular Hemoglobin Concent 37.3 H, Red Cell Distribution Width 13.7, Neutrophils (%) (Auto) 80.3 H, Lymphocytes (%) (Auto) 8.3 L, Monocytes (%) (Auto) 10.2 H, Eosinophils (%) (Auto) 0.1, Basophils (%) ( Auto) 0.2, Neutrophils # (Auto) 10.6 H, Lymphocytes # (Auto) 1.1 L, Monocytes # (Auto) 1.4 H, Eosinophils # (Auto) 0.0, Basophils # (Auto) 0.0, Calcium Level 8.5, Aspartate Amino Transf (AST/SGOT) 132 H, Alanine Aminotransferase (ALT/SGPT ) 48, Alkaline Phosphatase 171 H, Total Bilirubin 14.1 H, Total Protein 7.5, Albumin 3.0 L 03/18/17 10:04 Calcium Level 8.7 Microbiology Microbiology 03/17/17 Blood Culture, Received Pending 03/17/17 Blood Culture, Received Pending LUIS FOUNTAIN PA-C Mar 18, 2017 12:07 RAEANN RODRIGUEZ MD Mar 18, 2017 14:31
[2017-03-18] MEDS ORDERED: GASTROGRAFIN SOLUTION 30ML PO ONE (12:30)
[2017-03-18] MEDS ORDERED: ISOVUE-370 76% 100ML VIAL (Q9967) As Ordered ONE (12:35)
[2017-03-18] MEDS ORDERED: GASTROGRAFIN SOLUTION 30ML (Q9963) PO ONE (13:00)
[2017-03-18 14:24] LABS: ANION GAP 6 MEQ/L (8-16); BLOOD UREA NITROGEN 10 MG/DL (7-18); CALCIUM LEVEL 8.6 MG/DL (8.5-10.1); CARBON DIOXIDE LEVEL 35 MEQ/L (21-32); CHLORIDE LEVEL 82 MEQ/L (98-107); CREATININE FOR GFR 0.77 MG/DL (0.70-1.30); GLOMERULAR FILTRATION RATE > 60.0 (>60); GLUCOSE, FASTING 105 MG/DL (70-105); POTASSIUM SERUM 3.2 MEQ/L (3.5-5.1); SODIUM LEVEL 123 MEQ/L (136-145)
[2017-03-18] MEDS: prednisoLONE (PRELONE) 15MG/5ML SYRUP UDC PO SCH (14:39)
[2017-03-18] MEDS: FOLIC ACID 1 MG TAB PO SCH (14:40)
[2017-03-18] MEDS: THIAMINE 100 MG TAB PO SCH ×2 (14:42→21:14)
[2017-03-18] MEDS: MULTIVITAMINS/MINERALS THERAP 1 TAB PO SCH (14:44)
--- NOTE | 2017-03-18 18:13 | IPN ---
DATE: 03/18/2017 Mr. Andrade is seen this morning again on his bedside in intensive care unit. I saw him for initial consultation yesterday due to severe hyponatremia. He was admitted with altered mentation and had ammonia level of 109 on admission. His sodium level was 109. He has known history of chronic alcohol use. In any event, yesterday he was treated with some normal saline and oral spironolactone. His sodium level improved to about 116, at which time his IV normal saline was stopped. Through the night he became very agitated and was given one dose of lorazepam 2 mg. This morning he is much more lethargic and unable to communicate. His oral intake is now zero. PHYSICAL EXAMINATION: Temperature is 99.3 degrees Fahrenheit, heart rate 88 per minute and respiratory rate 24 per minute. Blood pressure 148/100 mmHg and oxygen saturation 97% on 2 liters oxygen. Intake and output records from yesterday showed total intake 1480 and output 4750. The patient is non communicative at this point. He did open his eyes and waved his hand, however, was not able to have any other interaction. His head is atraumatic. Pupils are equal and reactive to light and sclera is deeply icterus. Oral mucosa is dry. Neck veins are difficult to be assessed. His heart sounds are regular and lungs with poor inspiratory effort and slightly diminished breath sounds at bases. Abdomen is obese and bowel sounds are hypoactive. Extremities have no cyanosis or clubbing. His right lower extremity erythema has improved and left lower extremity erythema/cellulitis still persists. Neurologically he is much more lethargic and not able to communicate. Today's labs show sodium level 122 and potassium 3.2. BUN is 10 and creatinine 0.85. Calcium level is 8.5 and magnesium 3.0. Total bilirubin is 14.1, AST 132, ALT 48 and his ammonia level has just come back at 49. A repeat sodium is now 120 and potassium 3.3. PROBLEMS: 1. Severe hyponatremia. Sodium level has improved appropriately to about 120-122 range. His oral intake is zero now. We will start him on half normal saline intravenously at 75 per hour and also add potassium chloride 20 mEq in each liter. The patient has received multiple doses of potassium runs. 2. Hypokalemia, potassium level is gradually improving and he will continue to receive potassium supplement intravenously. 3. Altered mentation most likely related to hepatic encephalopathy. His ammonia level was quite high. He got agitated through the night probably related to medium treatment. He was given Atrovent. We will see how he does once the Atrovent wears off. I do not feel that hyponatremia is significantly affecting his mentation. 4. Possible ascites and cirrhosis. The patient does have history of fatty liver previously and may have progressed to cirrhosis. He did have some ascites on the abdominal ultrasound. He is going to have a CT scan of abdomen and pelvis done today. 5. Hypertension. We stopped his diuretic and calcium channel javid yesterday. His blood pressure is stable and we will continue to monitor. We will plan to resume spironolactone once he is able to take his medications by mouth. I have discussed with the patient's about his condition and answered all her questions.
[2017-03-18 20:33] LABS: ANION GAP 4 MEQ/L (8-16); BLOOD UREA NITROGEN 9 MG/DL (7-18); CALCIUM LEVEL 8.9 MG/DL (8.5-10.1); CARBON DIOXIDE LEVEL 35 MEQ/L (21-32); CHLORIDE LEVEL 86 MEQ/L (98-107); CREATININE FOR GFR 0.81 MG/DL (0.70-1.30); GLOMERULAR FILTRATION RATE > 60.0 (>60); GLUCOSE, FASTING 126 MG/DL (70-105); POTASSIUM SERUM 3.6 MEQ/L (3.5-5.1); SODIUM LEVEL 125 MEQ/L (136-145)
--- NOTE | 2017-03-18 20:42 | CR ---
DATE OF CONSULTATION: 03/17/2017 CONSULTATION REPORT FOR: Refugio Read MD REASON FOR CONSULTATION: Severe hyponatremia, hypovolemia, and hypokalemia. HISTORY OF PRESENT ILLNESS: Mr. Andrade is a 41-year-old male with known history of chronic alcohol use. His other chronic medical problems include hypertension , hyperlipidemia and peripheral neuropathy. According to his , he was recently also diagnosed with rheumatoid arthritis and had significant lower extremity edema. He underwent extensive workup by neurology recently. The patient was brought to the emergency room due to altered mentation last night and was noticed to have a serum sodium level of 108. His ammonia level was above 100 and he was felt to have hepatic encephalopathy and severe hyponatremia. He does have prior history of fatty liver however, according to his a formal diagnosis of cirrhosis has never been established. The patient was admitted to intensive care unit last night. He did receive some IV normal saline by the emergency room physician and later on. Nephrology consultation was requested and the patient is seen this morning in intensive care unit. PAST MEDICAL AND SURGICAL HISTORY: Significant for: 1. Hypertension. 2. Hyperlipidemia. 3. Obesity. 4. History of chronic alcohol use. 5. History of familial hypocalciuric hypercalcemia. 6. Depression. 7. History of OCD. 8. History of alcoholic fatty liver. Surgical history is unremarkable. FAMILY HISTORY: The patient himself is not able to provide much information. According to his admission history and per his , mother does have hyperlipidemia and fibromyalgia. Father is alive and well. One of the patient' s siblings has history of brain cancer. MEDICATIONS: His home medications include: - amlodipine 5 mg daily - atorvastatin 10 mg daily - chlorthalidone 25 mg daily - fluvoxamine 100 mg one and a half tablets in the morning and one half tablet in the evening - gabapentin 600 mg three times a day - meloxicam 15 mg daily ALLERGIES: There is an allergy listed to LISINOPRIL. PERSONAL AND SOCIAL HISTORY: The patient is and lives with his . He does have history of alcohol use. There is no history of recreational drug use. He is a former smoker. REVIEW OF SYSTEMS: The patient himself is not able to provide any information at this point. He is quite obtunded and not able to even communicate. His reports that for last few days he had been feeling somewhat weak. Yesterday he developed altered mentation. He was quite confused and disoriented when he was brought to emergency room. There is no known fever or chills. There is no history of nausea or vomiting or diarrhea. He does have history of lower extremity edema and abdominal distension but no known history of cirrhosis or ascites. There is no history of diabetes or thyroid problems known. He underwent extensive workup by neurology recently and a diagnosis of rheumatoid arthritis has also been made without any significant details known. Skin has some erythema on the lower extremities. Hematological system is negative for anticoagulation. PHYSICAL EXAMINATION: This is an obese young gentleman lying in the bed who seems quite confused and disoriented. Temperature is 99 degrees Fahrenheit, heart rate 84 per minute and respiratory rate 22 per minute. Blood pressure 140/80 mmHg and oxygen saturation 98% on room air. Head is atraumatic. Pupils equal and reactive to light and sclerae is icteric. Oral mucosa is dry. Neck veins are prominent. Neck is supple and obese. Heart sounds are regular. Lungs with moderate bilateral air entry and diminished breath sounds at bases. Abdomen is quite protuberant and nontender. Bowel sounds are hypoactive. There is some ascites present. Extremities have no cyanosis or clubbing. Lower extremities have erythema bilaterally and edema. There is also some edema on upper extremities. Neurologically the patient is quite confused, disoriented and not able to communicate properly. LABORATORY DATA: His admission sodium was 109 and potassium 203. Chloride 64, BUN 9 and creatinine 0.88. Serum osmolality was 233 and uric acid 3.4. Lactic acid level 2.1. TSH level was 4.66. This morning his sodium is up to 112 and potassium is 2.5. BUN 9 and creatinine 0.81. Calcium level is 8.3 and magnesium 2.6. Total bilirubin is 14.5, AST 152, ALT 48 and alkaline phosphatase 154. His ammonia level last night was 109. PROBLEMS: 1. Severe hyponatremia. The patient seems clinically hypervolemic. His hyponatremia seems multifactorial as he was on diuretics and also has history of OCD. The patient also has history of alcohol use and there is no other recent labs done. It is not known over how much long period he developed this hyponatremia. The patient did receive some normal saline in the emergency room and his sodium level has already improved to 112. We will start with low dose of normal saline and try to very gradually correct his sodium level. His electrolytes will need to be monitored every 4-6 hours. We will make further adjustments depending upon his sodium level. At this point we will start with 70 mL of normal saline with potassium chloride due to persistent hypokalemia. We will also start him on spironolactone 25 mg three times a day and monitor intake and output. He is quite hypervolemic and potassium-sparing diuretic is likely to help. 2. Hypokalemia. Patient has severe hypokalemia probably related to diuretic use and may also have some contribution from his OCD. At this point we will continue to replace his potassium and also add potassium chloride 40 mEq in each liter of IV fluid. Continue to monitor his electrolytes frequently. We are also starting him on spironolactone in view of peripheral edema and ascites and significant hypokalemia. 3. Hepatic encephalopathy. The patient has abnormal LFTs and very high ammonia level with a history known for chronic alcohol use. It is quite possible that hepatic encephalopathy is related to alcoholic cirrhosis. The patient is being treated with lactulose. Altered mentation is most likely related to hepatic encephalopathy. 4. Lower extremity erythema. The patient has bilateral lower extremity erythema which could be chronic stasis or cellulitis. I suggest to monitor closely for need for antibiotics. I thank you for involving me in the care of Mr. Andrade. I will follow him along with you. GASTON
[2017-03-19] VITALS (9 sets, daily range): BP systolic 123–149; BP diastolic 77–85
[2017-03-19] MEDS: ceFAZolin SOD 1 GM in D5W MINI-BAG PLUS 50 ML IV SCH ×2 (02:18→08:45)
[2017-03-19] MEDS: KCL 20MEQ IN 0.45NS 1000ML 1,000 ML IV SCH ×2 (02:18→13:52)
[2017-03-19] MEDS: LACTULOSE 20 GM/30 ML SYRUP UD PO SCH ×3 (05:04→21:05)
[2017-03-19 05:12] LABS: BASO % 0.1 % (0.0-1.0); EOS % 0.1 % (0.0-3.0); IMMATURE GRANULOCYTE % 0.9 % (0-0); LYMPH # 0.9 10^3/uL (1.5-4.5); LYMPH % 7.9 % (24.0-44.0); MEAN CORPUSCULAR HEMOGLOBIN 33.9 pg (27.0-33.0); MEAN CORPUSCULAR HGB CONC 35.2 g/dl (32.0-36.5); MEAN CORPUSCULAR VOLUME 96.2 fl (80.0-96.0); MONO # 0.9 10^3/uL (0.0-0.8); NEUTROPHILS # 9.1 10^3/uL (1.8-7.7); PLATELET COUNT, AUTOMATED 229 10^3/uL (150-450); RED CELL DISTRIBUTION WIDTH 14.9 % (11.5-14.5)
[2017-03-19 05:33] LABS: ALBUMIN 2.8 GM/DL (3.2-5.2); ALBUMIN/GLOBULIN RATIO 0.65 (1.00-1.93); ALKALINE PHOSPHATASE 164 U/L (45-117); ALT/SGPT 60 U/L (12-78); ANION GAP 4 MEQ/L (8-16); AST/SGOT 165 U/L (15-37); BILIRUBIN,TOTAL 10.6 MG/DL (0.2-1.0); BLOOD UREA NITROGEN 9 MG/DL (7-18); CALCIUM LEVEL 8.7 MG/DL (8.5-10.1); CARBON DIOXIDE LEVEL 37 MEQ/L (21-32); CHLORIDE LEVEL 88 MEQ/L (98-107); GLOMERULAR FILTRATION RATE > 60.0 (>60); GLUCOSE, FASTING 112 MG/DL (70-105); POTASSIUM SERUM 3.3 MEQ/L (3.5-5.1); SODIUM LEVEL 129 MEQ/L (136-145); TOTAL PROTEIN 7.1 GM/DL (6.4-8.2)
--- NOTE | 2017-03-19 07:35 | REP ---
Clinical: Abdominal pain with elevated liver function tests. Technique: Axial contrast enhanced images from the lung bases to the pubic symphysis using 100 ml Isovue 370 intravenous contrast material with coronal and sagittal re-formations. Findings: The liver is mildly heterogeneous without discrete focal hepatic mass lesion identified. The gallbladder appears relatively normal and there is no obvious evidence for cholelithiasis, pericholecystic inflammatory stranding or biliary ductal dilatation. A small amount of perihepatic fluid extends along the right para colic gutter into the pelvis. Spleen, pancreas, bilateral adrenal glands and kidneys are normal. The enteric system is without obstruction or acute inflammatory process no evidence for free air to suggest perforation. Pelvis demonstrates a Onofre catheter in partially collapsed bladder and age appropriate prostate/seminal vesicles. A mild amount of subcutaneous edema / anasarca is suggested in the surrounding subcutaneous tissues. The abdominal aorta and vasculature appears normal. Skeletal structures demonstrate age-related changes without focal osseous abnormality. Lung bases suggest mild/moderate pulmonary vascular congestion. Impression: 1. Heterogeneous appearance to the liver is nonspecific and may reflect underlying fatty infiltration with focal fatty sparing. Differential diagnosis includes hepatocellular disease. 2. Small amount of ascites nonspecific. 3. Normal appearance to the pancreas, gallbladder and biliary system by CT evaluation. Signed by Javi Heredia MD 03/19/2017 07:27 A
[2017-03-19] MEDS: FOLIC ACID 1 MG TAB PO SCH (08:43)
[2017-03-19] MEDS: THIAMINE 100 MG TAB PO SCH (08:43)
[2017-03-19] MEDS: MULTIVITAMINS/MINERALS THERAP 1 TAB PO SCH (08:43)
[2017-03-19] MEDS: POTASSIUM CHLORIDE 10 MEQ SR TABLET PO SCH ×3 (08:44→21:06)
[2017-03-19] MEDS ORDERED: predniSONE 20 MG TAB PO SCH (09:00)
--- NOTE | 2017-03-19 09:23 | IPNPDOC ---
Subjective Date Seen The patient was seen on 03/19/17. Subjective Chief Complaint/HPI The patient is a 41-year-old male admitted with a reason for visit of Hepatic Encephalopathy;Hyponatremia. Events since last encounter Patient is alert this morning, but confused. He denies abd pain. He is hungry Constitutional: Denies: Chills, Fever Pulmonary: Denies: Dyspnea, Cough Cardiovascular: Denies: Chest Pain, Palpitations Gastrointestinal: Reports: Diarrhea (Getting Lactulose), Denies: Nausea, Vomiting, Abdominal Pain, Constipation Objective Physical Examination General Exam: Positive: Alert, Cooperative Eye Exam: Positive: Sclera icteric Neck Exam: Negative: thyromegaly Chest Exam: Positive: Clear to auscultation, Normal air movement Heart Exam: Positive: Rate Normal, Regular Rhythm, Normal S1, Normal S2, Negative: Murmurs, Rubs Telemetry: Positive: No significant arrhythmia Abdomen Exam: Positive: Normal bowel sounds, Soft, Other (Proterberant with ), Negative: Tenderness Extremity Exam: Positive: Edema (trace edema of the lower extremities bilaterally), Negative: Clubbing, Cyanosis Skin Exam: Positive: Other skin issue (Left leg with scabed dry lesions on shins with surrounding erythema to the knee, right Le edema has resolved), Negative: Breakdown, Lesion Psych Exam: Negative: Mental status NL (Confused to place and time. speech is fairly clear) Assessment /Plan Problems (1) Alcoholic hepatitis with ascites Status: Acute Problem Text: 03/19: Prednisolone was changed to prednisone this morning; however prednisolone is preferred in patients with alcoholic hepatitis, as prednisone has to be converted to prednisolone in the liver; prednisone d/c'd and changed back to prednisolone for tomorrow. Total recommended steroid course is prednisolone 40 mg daily for 28 days, followed by a taper over 2-4 weeks. However, we need to determine if he will be compliant with this as an outpatient once he is more alert and awake; if compliance is a concern, we may want to stop steroids prior to discharge. (KES) 03/19 - T.Bili trending down slightly. Transaminases improving. No RUQ pain or n/v. He remains on Prednisone as discussed below - D/W attending length of prednisone dosing. He will need GI evaluation as outpatient. He has an elevated serum ammonia level, elevated bilirubin, low sodium, elevated INR with a known history of cirrhosis. Ct/abd pelvis showed fatty liver with areas of fat sparing and suggestion of hepatocellular disease. No bilary of GB abnormalities, only a small amount of ascites 03/17/27 Meld score upon admission is 28.6 which has an estimated 19.6% 3 month mortality. His Maddrey's discriminant function score is 34.2, which is greater than 32, therefore steroids are indicated for liver failure, he'll be started on prednisone 40 mg by mouth daily Hepatitis panel negative 03/16 abd US: Limited study because of patient's body habitus and large amount of bowel gas. 2. Small amount of free fluid in the right abdomen as described. 3. No other acute findings. (2) Hyponatremia Status: Acute Problem Text: 03/19 - Na+ improving slowing with IVF. diuretics discontinued. managed by Nephrology (3) Alcohol withdrawal Status: Acute Problem Text: last ETOH per 03/15/171999, slept all day 03/16/17 Currently awake without signs of ETOH withdrawl. Will try to avoid benzos if possible - He became very sedated with Ativan 2 mg x1 so I will try to avoid using this again. If needed, would use a lower dose (4) Cellulitis Status: Acute Problem Text: 03/18 - Right lower ext erythema improved. Left persists but slightly less erythematous D3 cefazolin 03/17 BCX x 2 P 03/17 BLE DVT US - (5) Hepatic encephalopathy Status: Acute Problem Text: 03/19 - Ammonia level was down to 49 yesterday. Lactulose restarted today now that taking PO again. Repeat Ammonia level in am (6) Hyperbilirubinemia Status: Acute (7) Elevated INR Status: Acute (8) Alcoholism Status: Chronic Problem Text: Will need PFS for ETOH rehab discussion (9) Alcoholic fatty liver Status: Chronic (10) Hypertension Status: Chronic (11) Anemia Status: Chronic Response to Treatment: Stable (12) History of depression Status: Chronic (13) History of OCD (obsessive compulsive disorder) Status: Chronic Problem Text: Normally controlled with Fluvoxamine- I will restart this and monitor Na+ as this can contribute to hyponatremia from SIADH although he never had hyponatremia on this before. (14) Neuropathy Status: Chronic Problem Text: Following with Neurology - was on Gabapentin for the last 2 months. On hold for now until mental status clears. (15) Rheumatoid factor positive Problem Text: Recently tested by Neurology with Rheumatoid factor positive x2. Referred to Rheumatology - appt is not until July Plan/VTE VTE Prophylaxis Ordered?: Yes (teds and sequentials) VTE Exclusion Mechanical Proph: Other Plan/Urinary Catheter Reason for insertion/continuin: Critical Pt monitoring Plan Family Medicine Attending Note: I saw and examined Mr. Andrade this morning; he was awake but oriented only to self and not to place, date, or situation. I discussed his care with CHING Watts and I agree with her note as documented above with noted addition to problem #1. Patient restarted on a diet , which can be advanced as tolerated over the next few days. Electrolytes and liver tests are improving. Patient transferred to PCU today. (KES) VS, I&O, 24H, Fishbone Vital Signs/I&O Vital Signs Date Time Temp Pulse Resp B/P (MAP) Pulse Ox O2 Delivery O2 Flow Rate FiO2 03/19/17 05:01 88 18 134/80 (98) 97 Nasal Cannula 2.0 03/19/17 04:00 99.7 I&O- Last 24 Hours up to 6 AM 03/20/17 05:59 Intake Total 425 ml Output Total 200 ml Balance 225 ml Laboratory Data 24H LABS Laboratory Tests 2 03/18/17 10:04: Anion Gap 6L, Glomerular Filtration Rate > 60.0, Blood Urea Nitrogen 11, Creatinine 0.80, Sodium Level 120L, Potassium Level 3.3L, Chloride Level 82L, Carbon Dioxide Level 32, Calcium Level 8.7 03/18/17 12:03: Ammonia 49H 03/18/17 13:44: Anion Gap 6L, Glomerular Filtration Rate > 60.0, Blood Urea Nitrogen 10, Creatinine 0.77, Sodium Level 123L, Potassium Level 3.2L, Chloride Level 82L, Carbon Dioxide Level 35H, Calcium Level 8.6 03/18/17 20:03: Anion Gap 4L, Glomerular Filtration Rate > 60.0, Blood Urea Nitrogen 9, Creatinine 0.81, Sodium Level 125L, Potassium Level 3.6, Chloride Level 86L, Carbon Dioxide Level 35H, Calcium Level 8.9 03/19/17 04:48: White Blood Count 11.0H, Red Blood Count 3.69L, Hemoglobin 12.5L, Hematocrit 35.5L, Mean Corpuscular Volume 96.2H, Mean Corpuscular Hemoglobin 33.9H, Mean Corpuscular Hemoglobin Concent 35.2, Red Cell Distribution Width 14.9H, Platelet Count 229, Neutrophils (%) (Auto) 83.0H, Lymphocytes (%) (Auto) 7.9L, Monocytes (%) (Auto) 8.0H, Eosinophils (%) (Auto) 0.1, Basophils (%) (Auto) 0.1 , Neutrophils # (Auto) 9.1H, Lymphocytes # (Auto) 0.9L, Monocytes # (Auto) 0.9H , Eosinophils # (Auto) 0.0, Basophils # (Auto) 0.0, Immature Granulocyte # (Auto ) 0.1H, Nucleated Red Blood Cells % (auto) 0.0, Anion Gap 4L, Glomerular Filtration Rate > 60.0, Blood Urea Nitrogen 9, Creatinine 0.70, Sodium Level 129L, Potassium Level 3.3L, Chloride Level 88L, Carbon Dioxide Level 37H, Calcium Level 8.7, Aspartate Amino Transf (AST/SGOT) 165H, Alanine Aminotransferase (ALT/SGPT) 60, Alkaline Phosphatase 164H, Total Bilirubin 10.6H , Total Protein 7.1, Albumin 2.8L, Albumin/Globulin Ratio 0.65L CBC/BMP Laboratory Tests 03/18/17 10:04 Calcium Level 8.7 03/18/17 13:44 Calcium Level 8.6 03/18/17 20:03 Calcium Level 8.9 03/19/17 04:48 Calcium Level 8.7, Red Blood Count 3.69 L, Mean Corpuscular Volume 96.2 H, Mean Corpuscular Hemoglobin 33.9 H, Mean Corpuscular Hemoglobin Concent 35.2, Red Cell Distribution Width 14.9 H, Neutrophils (%) (Auto) 83.0 H, Lymphocytes (%) ( Auto) 7.9 L, Monocytes (%) (Auto) 8.0 H, Eosinophils (%) (Auto) 0.1, Basophils ( %) (Auto) 0.1, Neutrophils # (Auto) 9.1 H, Lymphocytes # (Auto) 0.9 L, Monocytes # (Auto) 0.9 H, Eosinophils # (Auto) 0.0, Basophils # (Auto) 0.0, Aspartate Amino Transf (AST/SGOT) 165 H, Alanine Aminotransferase (ALT/SGPT) 60 , Alkaline Phosphatase 164 H, Total Bilirubin 10.6 H, Total Protein 7.1, Albumin 2.8 L Microbiology Microbiology 03/17/17 Blood Culture - Preliminary, Resulted No growth after 24 hours . All specim... 03/17/17 Blood Culture - Preliminary, Resulted No growth after 24 hours . All specim... LUIS FOUNTAIN PA-C Mar 19, 2017 09:23 RAEANN RODRIGUEZ MD Mar 19, 2017 14:58
[2017-03-19] MEDS: ENOXAPARIN 40 MG/0.4 ML SYRINGE (J1650) SC SCH (10:55)
[2017-03-19] MEDS: fluvoxaMINE MALEATE 50 MG TAB PO SCH ×2 (10:56→21:06)
--- NOTE | 2017-03-19 11:07 | IPN ---
DATE: 03/19/2017 Mr. Andrade is seen this morning on his bedside in intensive care unit. His is present on the bedside. The patient is much more alert and communicative today. He is able to answer questions appropriately. He reports being hungry and wants to go home. The patient denies any nausea, vomiting, abdominal pain, dyspnea or chest pain. He underwent CT scan of abdomen and pelvis yesterday, which did not show any significant abnormality other than a small amount of ascites and heterogeneous appearance of the liver. On physical exam, temperature 100.3 degrees Fahrenheit, heart rate 88 per minute and respiratory rate 18 per minute. Blood pressure 128/77 mmHg and oxygen saturation 97% on 2 liters oxygen. Intake and output from yesterday showed total intake 1885 and output 3350. He weighed 111 kg today. Head is atraumatic. Neck is supple and without any jugular venous distention (JVD) or thyroid enlargement. Sclera is icteric and pupils reactive to light. Heart sounds are regular and lungs with moderate bilateral air entry. Abdomen is obese and nontender. Bowel sounds normal. Extremities have no cyanosis or clubbing. Left lower extremity erythema is gradually improving. Right leg erythema has already resolved. Neurologically, the patient is much more awake, alert and able to answer questions appropriately. He has not been out of bed as yet. Today's labs show WBC count 11.0, hemoglobin 12.5 and hematocrit 35.5. Platelets 229. Sodium 129 and potassium 3.3. BUN 9 and creatinine 0.70. Total bilirubin is down to 10.6, AST 165, AST 60 and alkaline phosphatase 164. Yesterday, his ammonia level was down to 49. PROBLEMS: 1. Severe hyponatremia. Patient was admitted with sodium level 109. It has gradually improved to 129 since admission. The rate of improvement of sodium has been appropriate. He is currently on half normal saline at 75 mL/hr. Patient has been nothing by mouth until now. We will resume regular diet and continue the IV fluid for next 24 hours. His electrolytes will be repeated again tomorrow morning. 2. Hypokalemia. Potassium level was 3.6 yesterday. It is down to 3.3 today. We will give him oral potassium chloride 20 mEq three times a day and continue with IV fluid with 20 mEq of potassium chloride in each liter. Patient is also being cleared for oral regular diet, which will help to correct his electrolytes. 3. Hepatic encephalopathy. Encephalopathy has improved significantly. Bilirubin is gradually decreasing and liver enzymes are also improving. His ammonia level was down to 49 yesterday. He remains on oral lactulose. 4. Lower extremity cellulitis. Cellulitis is improving and patient remains on cephazolin intravenously. DISPOSITION: From renal standpoint, patient can be transferred out of intensive care unit.
[2017-03-19] MEDS ORDERED: fluvoxaMINE MALEATE 50 MG TAB PO SCH (21:00)
[2017-03-20] VITALS: BP 136/63
[2017-03-20] MEDS: KCL 20MEQ IN 0.45NS 1000ML 1,000 ML IV SCH (02:14)
[2017-03-20 04:00] VITALS: BP 150/77
[2017-03-20 05:10] LABS: BASO % 0.3 % (0.0-1.0); EOS % 0.2 % (0.0-3.0); IMMATURE GRANULOCYTE % 0.8 % (0-0); LYMPH # 1.5 10^3/uL (1.5-4.5); LYMPH % 12.9 % (24.0-44.0); MEAN CORPUSCULAR HEMOGLOBIN 33.6 pg (27.0-33.0); MEAN CORPUSCULAR HGB CONC 34.1 g/dl (32.0-36.5); MEAN CORPUSCULAR VOLUME 98.5 fl (80.0-96.0); MONO % 8.7 % (0.0-5.0); NEUTROPHILS # 9.1 10^3/uL (1.8-7.7); NEUTROPHILS % 77.1 % (36.0-66.0); PLATELET COUNT, AUTOMATED 226 10^3/uL (150-450); RED CELL DISTRIBUTION WIDTH 15.7 % (11.5-14.5); WHITE BLOOD COUNT 11.8 10^3/uL (4.0-10.0)
[2017-03-20 05:36] LABS: ALBUMIN 2.8 GM/DL (3.2-5.2); ALBUMIN/GLOBULIN RATIO 0.72 (1.00-1.93); ALKALINE PHOSPHATASE 174 U/L (45-117); ALT/SGPT 62 U/L (12-78); ANION GAP 2 MEQ/L (8-16); AST/SGOT 147 U/L (15-37); BILIRUBIN,TOTAL 8.4 MG/DL (0.2-1.0); BLOOD UREA NITROGEN 10 MG/DL (7-18); CALCIUM LEVEL 8.6 MG/DL (8.5-10.1); CARBON DIOXIDE LEVEL 35 MEQ/L (21-32); CHLORIDE LEVEL 96 MEQ/L (98-107); GLOMERULAR FILTRATION RATE > 60.0 (>60); GLUCOSE, FASTING 90 MG/DL (70-105); SODIUM LEVEL 133 MEQ/L (136-145); TOTAL PROTEIN 6.7 GM/DL (6.4-8.2)
[2017-03-20] MEDS: LACTULOSE 20 GM/30 ML SYRUP UD PO SCH ×2 (06:40→21:08)
--- NOTE | 2017-03-20 08:12 | IPNPDOC ---
Subjective Date Seen The patient was seen on 03/20/17. Subjective Chief Complaint/HPI The patient is a 41-year-old male admitted with a reason for visit of Hepatic Encephalopathy;Hyponatremia. Events since last encounter No complaints. not eating much. Multiple loose BMs yesterday Constitutional: Denies: Chills, Fever Pulmonary: Denies: Dyspnea, Cough Cardiovascular: Denies: Chest Pain, Palpitations Gastrointestinal: Reports: Diarrhea (On Lactulose), Denies: Nausea, Vomiting, Abdominal Pain, Constipation Objective Physical Examination General Exam: Positive: Alert, Cooperative Eye Exam: Positive: Sclera icteric Neck Exam: Negative: thyromegaly Chest Exam: Positive: Clear to auscultation, Normal air movement Heart Exam: Positive: Rate Normal, Regular Rhythm, Normal S1, Normal S2, Negative: Murmurs, Rubs Telemetry: Positive: No significant arrhythmia Abdomen Exam: Positive: Normal bowel sounds, Soft, Other (Proterberant with ), Negative: Tenderness Extremity Exam: Positive: Edema (trace edema of the lower extremities bilaterally), Negative: Clubbing, Cyanosis Skin Exam: Positive: Other skin issue (Bl LE erythmea improving slowly), Negative: Breakdown, Lesion Psych Exam: Positive: Mental status NL, Oriented x 3 Assessment /Plan Problems (1) Alcoholic hepatitis with ascites Status: Acute Problem Text: Overall, patient is greatly improved and is now tolerating oral intake. He is still having some word-finding difficulties and responses to questions are somewhat delayed, but he is now oriented to person, place, and year (though not date or month). PFS is consulted to help discuss rehab options. I did have a discussion with him regarding this today, and he is not interested in rehab today but states he will consider it. (KES) He is on day #5 of steroids; he has received a few doses of prednisone, but prednisolone is preferred in patients with alcoholic hepatitis, as prednisone has to be converted to prednisolone in the liver; therefore, continue prednisolone for now. Total recommended steroid course is prednisolone 40 mg daily for 28 days, followed by a taper over 2-4 weeks. However, we need to determine if he will be compliant with this as an outpatient once he is more alert and awake; if compliance is a concern, we may want to stop steroids prior to discharge so as to avoid adrenal insufficiency if he were to stop steroids suddenly after discharge. He will need GI evaluation as outpatient. 03/18: CT/abd pelvis showed fatty liver with areas of fat sparing and suggestion of hepatocellular disease. No biliary or GB abnormalities, only a small amount of ascites 03/17: Patient with known history of cirrhosis. Meld score upon admission is 28.6 which has an estimated 19.6% 3 month mortality. His Maddrey's discriminant function score is 34.2, which is greater than 32, therefore steroids are indicated for liver failure. Hepatitis panel negative 03/16 Abd US: Limited study because of patient's body habitus and large amount of bowel gas. 2. Small amount of free fluid in the right abdomen as described. 3. No other acute findings. (2) Hyponatremia Status: Acute Problem Text: 03/20 - Na+ improved slowing with IVF. Was 109 on admission. Na = 133 today. Diuretics have been discontinued, and Nephrology stopped IVF and foley6 today. (3) Alcohol withdrawal Status: Acute Problem Text: 03/20 last ETOH per 03/15/171999, slept all day 03/16/17 Currently awake without signs of ETOH withdrawl. Will try to avoid benzos if possible - He became very sedated with Ativan 2 mg x1 so I will try to avoid using this again. If needed, would use a lower dose. Get PFS to discuss ETOH rehab today now that his mental status has improved; see above. (4) Cellulitis Status: Acute Problem Text: 03/20 - Right lower ext erythema improved. Left persists but slightly less erythematous and is not tender to palpation. Will change to PO keflex now that he is taking PO and will d/c cefazolin. He received cefazolin x 4 days. (KES) 03/17 BCX x 2 P 03/17 BLE DVT US - (5) Hepatic encephalopathy Status: Acute Problem Text: 03/20 Ammonia level normalized = 29 today (was 109 on admission); on 03/19 had frequent very watery stools. I will hold Lactulose this am and then cut Lactulose down to BID (6) Hyperbilirubinemia Status: Acute Problem Text: T.Bili trending down slowly = 8.4 today Liver Us and CT abd/pelvis did not show obstructive process or biliary ductal dilatation (7) Elevated INR Status: Acute (8) Alcoholism Status: Chronic Problem Text: Will need PFS for ETOH rehab discussion (9) Alcoholic fatty liver Status: Chronic (10) Hypertension Status: Chronic Response to Treatment: Stable Problem Text: Home chlorthalidone and amlodipine are being held. (11) Anemia Status: Chronic Response to Treatment: Stable (12) History of OCD (obsessive compulsive disorder) Status: Chronic Problem Text: Normally controlled with Fluvoxamine - This was restarted 03/19. Monitor Na+ as this can contribute to hyponatremia from SIADH although he never had hyponatremia on this before. (13) Neuropathy Status: Chronic Problem Text: Following with Neurology - was on Gabapentin for the last 2 months. On hold for now until mental status clears. (14) Rheumatoid factor positive Problem Text: Recently tested by Neurology with Rheumatoid factor positive x2. Referred to Rheumatology - appt is not until July (15) Hyperlipidemia Status: Chronic Response to Treatment: Stable Problem Text: Atorvastatin has been held; we may not want to restart this given his liver disease. (KES) Plan/VTE VTE Prophylaxis Ordered?: Yes (teds and sequentials) VTE Exclusion Mechanical Proph: Other Plan/Urinary Catheter Reason for insertion/continuin: Critical Pt monitoring Plan Family Medicine Attending Note: I saw and examined Mr. Andrade this afternoon; I discussed his care with CHING Watts and I agree with her note as documented with noted additions. Patient still has some word finding difficulties and is c/o generalized weakness; he will need to work with PT to improve strength. At this point, his plan is to quit drinking alcohol "cold turkey" without the assistance of rehab. I asked him to consider rehab (either inpatient or an outpatient program) and/or AA meetings to maintain sobriety. He states he will consider this. (KES) Disposition Move to Floor VS, I&O, 24H, Fishbone Vital Signs/I&O Vital Signs Date Time Temp Pulse Resp B/P (MAP) Pulse Ox O2 Delivery O2 Flow Rate FiO2 03/20/17 04:00 100.2 84 20 150/77 (101) 97 Room Air 03/19/17 10:00 2.0 Laboratory Data 24H LABS Laboratory Tests 2 03/20/17 04:50: White Blood Count 11.8H, Red Blood Count 3.93L, Hemoglobin 13.2L, Hematocrit 38.7L, Mean Corpuscular Volume 98.5H, Mean Corpuscular Hemoglobin 33.6H, Mean Corpuscular Hemoglobin Concent 34.1, Red Cell Distribution Width 15.7H, Platelet Count 226, Neutrophils (%) (Auto) 77.1H, Lymphocytes (%) (Auto) 12.9L, Monocytes (%) (Auto) 8.7H, Eosinophils (%) (Auto) 0.2, Basophils (%) (Auto) 0.3 , Neutrophils # (Auto) 9.1H, Lymphocytes # (Auto) 1.5, Monocytes # (Auto) 1.0H, Eosinophils # (Auto) 0.0, Basophils # (Auto) 0.0, Immature Granulocyte # (Auto) 0.1H, Nucleated Red Blood Cells % (auto) 0.0, Anion Gap 2L, Glomerular Filtration Rate > 60.0, Blood Urea Nitrogen 10, Creatinine 0.80, Sodium Level 133L, Potassium Level 4.0#, Chloride Level 96L, Carbon Dioxide Level 35H, Calcium Level 8.6, Aspartate Amino Transf (AST/SGOT) 147H, Alanine Aminotransferase (ALT/SGPT) 62, Alkaline Phosphatase 174H, Total Bilirubin 8.4H , Total Protein 6.7, Albumin 2.8L, Ammonia 29, Albumin/Globulin Ratio 0.72L CBC/BMP Laboratory Tests 03/20/17 04:50 Red Blood Count 3.93 L, Mean Corpuscular Volume 98.5 H, Mean Corpuscular Hemoglobin 33.6 H, Mean Corpuscular Hemoglobin Concent 34.1, Red Cell Distribution Width 15.7 H, Neutrophils (%) (Auto) 77.1 H, Lymphocytes (%) (Auto ) 12.9 L, Monocytes (%) (Auto) 8.7 H, Eosinophils (%) (Auto) 0.2, Basophils (%) (Auto) 0.3, Neutrophils # (Auto) 9.1 H, Lymphocytes # (Auto) 1.5, Monocytes # ( Auto) 1.0 H, Eosinophils # (Auto) 0.0, Basophils # (Auto) 0.0, Calcium Level 8.6 , Aspartate Amino Transf (AST/SGOT) 147 H, Alanine Aminotransferase (ALT/SGPT) 62, Alkaline Phosphatase 174 H, Total Bilirubin 8.4 H, Total Protein 6.7, Albumin 2.8 L Microbiology Microbiology 03/17/17 Blood Culture - Preliminary, Resulted No Growth after 48 hours. All Specime... 03/17/17 Blood Culture - Preliminary, Resulted No Growth after 48 hours. All Specime... LUIS FOUNTAIN PA-C Mar 20, 2017 08:12 RAEANN RODRIGUEZ MD Mar 20, 2017 14:03
[2017-03-20] MEDS: MULTIVITAMINS/MINERALS THERAP 1 TAB PO SCH (09:25)
[2017-03-20] MEDS: ENOXAPARIN 40 MG/0.4 ML SYRINGE (J1650) SC SCH (09:26)
[2017-03-20] MEDS: FOLIC ACID 1 MG TAB PO SCH (09:26)
[2017-03-20] MEDS: POTASSIUM CHLORIDE 10 MEQ SR TABLET PO SCH (09:26)
[2017-03-20] MEDS: fluvoxaMINE MALEATE 50 MG TAB PO SCH ×2 (09:27→21:08)
[2017-03-20] MEDS: prednisoLONE (PRELONE) 15MG/5ML SYRUP UDC PO SCH (09:27)
[2017-03-20 11:30] VITALS: BP 141/86
--- NOTE | 2017-03-20 12:55 | IPN ---
DATE: 03/20/2017 Mr. Andrade is seen this morning on his bedside in intensive care unit. He is sitting in the recliner chair at the time of my visit. He reports that he had a good breakfast and denies any dyspnea, chest pain, fever or chills. He feels weak now and wants to go back to the bed. He is much more alert and communicative today. PHYSICAL EXAMINATION: Temperature 100.2 degrees Fahrenheit, heart rate 84 per minute and respiratory rate 20 per minute. Blood pressure 150/77 mmHg and oxygen saturation 97% on room air. Head is atraumatic. Neck is supple and jugular venous distention (JVD) is difficult to be assessed. Pupils equal and reactive to light and sclera is icteric. Ears, nose and throat are unremarkable. Heart sounds are regular and lungs clear to auscultation. Abdomen is obese, soft and nontender. Bowel sounds are normal. Extremities have no cyanosis or clubbing. Left lower extremity cellulitis is improving nicely. Neurologically, the patient is awake, alert and able to answer questions appropriately. He seems well oriented today. Today's labs show WBC count 11.8, hemoglobin 13.2 and hematocrit 38.7. Sodium 133 and potassium 4.0. BUN 10 and creatinine 0.8. Serum ammonia level is 29, bilirubin 8.4, AST 147, ALT 62 and alkaline phosphatase 174. PROBLEMS: 1. Severe hyponatremia. The patient had a sodium level 109 on admission. His sodium level has improved gradually and appropriately over the last few days. It is almost normal range now. We will stop the IV fluid and continue to monitor his electrolytes. 2. Hypokalemia. Potassium level has corrected and the patient is currently taking 20 mEq of potassium three times a day by mouth. We will consider to stop his potassium supplement later today. 3. Altered mentation with hepatic encephalopathy. The patient has improved significantly and his ammonia level is down to 29. His bilirubin is also improving. 4. Cellulitis of lower extremities. Right leg cellulitis has improved and left leg is also improving nicely. He remains on cephazolin. DISPOSITION: From renal standpoint, the patient can be transferred to regular medical floor. His Onofre catheter is being removed.
[2017-03-20] MEDS: ACETAMINOPHEN TAB 650MG DOSE (2X325MG) PO PRN ×2 (13:05→23:18)
[2017-03-20 14:00] VITALS: BP_SYST 140; BP_SYST 154; BP_DIAS 102; BP_DIAS 80
[2017-03-20 22:00] VITALS: BP 128/85
[2017-03-20] MEDS: CEPHALEXIN 250 MG CAP PO SCH (23:18)
[2017-03-21] MEDS: CEPHALEXIN 250 MG CAP PO SCH ×3 (05:49→17:30)
[2017-03-21 06:00] VITALS: BP 130/76
[2017-03-21 06:14] LABS: BASO % 0.3 % (0.0-1.0); EOS % 0.2 % (0.0-3.0); LYMPH # 1.8 10^3/uL (1.5-4.5); MEAN CORPUSCULAR HEMOGLOBIN 33.3 pg (27.0-33.0); MEAN CORPUSCULAR HGB CONC 33.7 g/dl (32.0-36.5); MONO # 1.1 10^3/uL (0.0-0.8); MONO % 8.2 % (0.0-5.0); NEUTROPHILS # 9.8 10^3/uL (1.8-7.7); NEUTROPHILS % 76.3 % (36.0-66.0); PLATELET COUNT, AUTOMATED 214 10^3/uL (150-450); RED CELL DISTRIBUTION WIDTH 16.3 % (11.5-14.5); WHITE BLOOD COUNT 12.8 10^3/uL (4.0-10.0)
[2017-03-21 06:46] LABS: ALBUMIN 2.6 GM/DL (3.2-5.2); ALBUMIN/GLOBULIN RATIO 0.63 (1.00-1.93); ALKALINE PHOSPHATASE 173 U/L (45-117); ALT/SGPT 75 U/L (12-78); ANION GAP 7 MEQ/L (8-16); AST/SGOT 141 U/L (15-37); BLOOD UREA NITROGEN 12 MG/DL (7-18); CARBON DIOXIDE LEVEL 27 MEQ/L (21-32); CHLORIDE LEVEL 100 MEQ/L (98-107); CREATININE FOR GFR 0.75 MG/DL (0.70-1.30); GLOMERULAR FILTRATION RATE > 60.0 (>60); GLUCOSE, FASTING 83 MG/DL (70-105); POTASSIUM SERUM 3.9 MEQ/L (3.5-5.1); SODIUM LEVEL 134 MEQ/L (136-145); TOTAL PROTEIN 6.7 GM/DL (6.4-8.2)
[2017-03-21] MEDS: MULTIVITAMINS/MINERALS THERAP 1 TAB PO SCH (08:54)
[2017-03-21] MEDS: FOLIC ACID 1 MG TAB PO SCH (08:54)
[2017-03-21] MEDS: fluvoxaMINE MALEATE 50 MG TAB PO SCH ×2 (08:54→20:15)
[2017-03-21] MEDS: LACTULOSE 20 GM/30 ML SYRUP UD PO SCH ×2 (08:55→20:15)
[2017-03-21] MEDS: ENOXAPARIN 40 MG/0.4 ML SYRINGE (J1650) SC SCH (08:55)
[2017-03-21] MEDS: ACETAMINOPHEN TAB 650MG DOSE (2X325MG) PO PRN (08:55)
[2017-03-21] MEDS: prednisoLONE (PRELONE) 15MG/5ML SYRUP UDC PO SCH (08:58)
[2017-03-21 14:00] VITALS: BP_SYST 120; BP_SYST 130; BP_SYST 141; BP_DIAS 110; BP_DIAS 54; BP_DIAS 72
--- NOTE | 2017-03-21 15:17 | IPN ---
DATE OF SERVICE: 03/21/2017 SUBJECTIVE: The patient was seen and examined at the bedside today morning. He was sitting in the bed. He was getting ready to eat his breakfast. His was also present at the bedside. The patient is much more awake and alert today. He is hemodynamically stable, and his sodium level is also gradually improving. Sodium is 134 today. Renal function is stable at this time. The patient is still having low-grade fevers at this time. REVIEW OF SYSTEMS: The patient denies any chills and rigors. He does report low-grade fever. He denies any chest pain or shortness of breath. The patient denies any nausea, vomiting. He does report some decreased appetite. He denies any dysuria or hematuria. The rest of review of systems is negative. OBJECTIVE: VITAL SIGNS: Current temperature (Tcurrent) is 98 degrees Fahrenheit, maximum temperature (Tmax) was 101.1 degrees Fahrenheit last night, blood pressure is 130/76, pulse is 82, maximum pulse rate was 91 last night, respiratory rate is 20, saturating 95% on room air. INTAKE AND OUTPUT: Urine output recorded is 860 mL yesterday, 675 mL so far today since overnight. Weight on the bed scale was 108.4 kg yesterday. PHYSICAL EXAMINATION: GENERAL: The patient is awake, alert, oriented times three, sitting in the bed , slightly anxious, and having mild resting tremors. Otherwise, no apparent distress. HEAD AND NECK EXAMINATION: Extraocular muscles intact. Pupils equally round and reactive to light. Mucous membranes are moist. Neck is supple. There is no jugular venous distention (JVD). CARDIOVASCULAR: S1, S2, regular rate. No murmur, rub, and gallop. RESPIRATORY: Chest is clear to auscultation bilaterally. Bilateral equal air entry. No rales or rhonchi. ABDOMEN: Is soft, obese. Positive bowel sounds. Nontender. No ascites. No organomegaly. MUSCULOSKELETAL: No clubbing or cyanosis. Pulses are 2+. No edema of the extremities. CENTRAL NERVOUS SYSTEM (UNDERWRITING CONSULTANT): No focal deficit. The patient has mild tremor of the extremities. Otherwise, no asterixis. Power is 5/5 in all extremities. PSYCHIATRIC: The patient is slightly anxious. Otherwise, cooperative during examination. SKIN: No rashes or ulcers. LABORATORY REVIEW: CBC showed a WBC of 12.8, hemoglobin 12.8, platelets are 214. BMP done today morning showed sodium 134, potassium 3.9, chloride 100, bicarbonate 27, BUN is 12, creatinine is 0.75, total bilirubin is 8, AST 141, ALT 75, alkaline phosphatase is 173, albumin is 2.6. MICROBIOLOGY: Blood cultures are negative so far. CURRENT INPATIENT MEDICATIONS: The patient's medications were all reviewed by me. The patient's intravenous (IV) fluids were stopped yesterday, and IV antibiotics were stopped yesterday. The patient is currently on Keflex 250 mg every 6 hours started today morning. He continues to be on high dose of fluvoxamine 150 mg in the morning and 50 mg at night. Potassium chloride was stopped yesterday. He continues to be on prednisone syrup. ASSESSMENT: A 41-year-old male with past medical history of obsessive- compulsive disorder admitted this time because of acute hepatitis and severe hyponatremia. PLAN: 1. Hyponatremia. The patient's sodium level continues to improve. Sodium is up to 134 now. Continue to monitor the sodium level. Continue the oral hydration. Intravenous (IV) fluids were stopped yesterday. I have ordered repeat urine osmolality and urine sodium levels. The patient's mental status is significantly better. 2. Hypokalemia. The patient's potassium level has improved. Potassium is 3.9 today morning. His oral potassium was stopped yesterday. Continue to monitor the potassium level now. 3. Cellulitis of the lower extremities. Intravenous IV antibiotic has been stopped. The patient has been started on by mouth Keflex. The patient still has leukocytosis and low-grade fever. Continue the antibiotics at this time. The rest of the management is as per primary team. 4. Acute hepatitis. It might be a combination of alcohol intake or iatrogenic. GI is on board. Multiple autoimmune serology is pending. The patient is getting by mouth prednisone for possible autoimmune hepatitis. Liver function is significantly getting better, and the patient's mental status is also significantly improved with improvement of the liver function. 5. Hypertension. Blood pressures are acceptable at this time. The patient was on thiazide diuretic and amlodipine at home. Continue to hold the antihypertensives at this time. Thiazide diuretics in combination with selective serotonin reuptake inhibitors (SSRIs) can worsen hyponatremia. The patient should not get the thiazides again. If needed, the patient can be restarted on amlodipine. 6. History of obsessive-compulsive disorder. The patient was on SSRI, fluvoxamine. However, he denies any hyponatremia with the fluvoxamine before, and his symptoms got severely worse after stopping fluvoxamine. Okay to continue the fluvoxamine at this time. However, if his hyponatremia recurs, then it might be secondary to syndrome of inappropriate secretion of antidiuretic hormone (SIADH), and we will have to switch him to non-SSRI antidepressant or antipsychotic medications. DISCHARGE PLANNING: The patient is significantly clinically getting better. I am hopeful that he should be able to be discharged in the next one or two days. GASTON
--- NOTE | 2017-03-21 19:32 | IPNPDOC ---
Subjective Date Seen The patient was seen on 03/21/17. Subjective Chief Complaint/HPI The patient is a 41-year-old male admitted with a reason for visit of Hepatic Encephalopathy;Hyponatremia. Events since last encounter Visit patient and his report that he is doing better today. He is interested in what his discharge plan is, although he's not pushing to leave. Nursing reports that his conversation with them still seems to wander. Pulmonary: Denies: Cough Cardiovascular: Denies: Chest Pain, Palpitations Neurological: Reports: Incoordination Psych: Reports: Memory Issues (but they do seem to be improving) Objective Physical Examination General Exam: Positive: Alert, Cooperative, No Acute Distress (laying comfortably in his bed talking to his entered the room) Eye Exam: Positive: Sclera icteric ENT Exam: Positive: Atraumatic, Mucous membr. moist/pink, Tongue Midline Neck Exam: Positive: Supple, Negative: Lymphadenopathy Chest Exam: Positive: Clear to auscultation, Normal air movement Heart Exam: Positive: Rate Normal, Regular Rhythm, Normal S1, Normal S2, Negative: Murmurs, Rubs Abdomen Exam: Positive: Normal bowel sounds, Soft, Other (his abdomen is protuberant, it is dull on percussion), Negative: Tenderness Extremity Exam: Positive: Normal pulses, Other (lesion on his left anterior tibial area seems to be healing reasonably well), Negative: Edema Skin Exam: Negative: Breakdown Neuro Exam: Positive: Normal Speech Psych Exam: Positive: Mood NL Assessment /Plan Problems (1) Alcoholic hepatitis with ascites Status: Acute Problem Text: His labs symptom me steadily improving. Ammonia was not checked today, I will check it again tomorrow. His mental status seems to be clearing from where it was a few days ago. Meld score upon admission is 28.6 which has an estimated 19.6% 3 month mortality. His Maddrey's discriminant function score is 34.2, which is greater than 32, therefore steroids are indicated for liver failure, he'll be started on prednisolone 40 mg by mouth daily. Asked whether that he was willing to take this for an extended period time and both he and his verbalized that he is (2) Alcoholism Status: Chronic Problem Text: His reports that he drinks 2 glasses of wine a day. She is surprised that this is considered alcoholism. It's not clear to me whether this is enabling/denial, or something else. (3) Hepatic encephalopathy Status: Acute Response to Treatment: Improving Problem Text: His encephalopathic symptoms seem reasonably well-controlled on my ~10 min visit. When I discussed this with nursing, they seemed surprised. Apparently they are still noting some significant encephalopathic behavior throughout the day. We'll continue to monitor. (4) Serum ammonia increased Status: Acute Response to Treatment: Improving Problem Text: He continues on lactulose and reports regular bowel movements, both are not as loose as they were. I'll recheck his ammonia level tomorrow. (5) Hyponatremia Status: Acute Problem Text: His sodium is almost normalized at 134. Continue current regimen , monitor. 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 (12) Anemia Status: Chronic (13) History of depression Status: Chronic (14) History of OCD (obsessive compulsive disorder) Status: Chronic Plan/VTE VTE Prophylaxis Ordered?: Yes (teds and sequentials) VTE Exclusion Mechanical Proph: Other VS, I&O, 24H, Fishbone Vital Signs/I&O Vital Signs Date Time Temp Pulse Resp B/P (MAP) Pulse Ox O2 Delivery O2 Flow Rate FiO2 03/21/17 14:00 98.2 89 19 130/72 (91) 96 Room Air 03/19/17 10:00 2.0 I&O- Last 24 Hours up to 6 AM 03/22/17 06:00 Intake Total 1140 ml Output Total 450 ml Balance 690 ml Laboratory Data 24H LABS Laboratory Tests 2 03/21/17 05:53: White Blood Count 12.8H, Red Blood Count 3.84L, Hemoglobin 12.8L, Hematocrit 38.0L, Mean Corpuscular Volume 99.0H, Mean Corpuscular Hemoglobin 33.3H, Mean Corpuscular Hemoglobin Concent 33.7, Red Cell Distribution Width 16.3H, Platelet Count 214, Neutrophils (%) (Auto) 76.3H, Lymphocytes (%) (Auto) 14.0L, Monocytes (%) (Auto) 8.2H, Eosinophils (%) (Auto) 0.2, Basophils (%) (Auto) 0.3 , Neutrophils # (Auto) 9.8H, Lymphocytes # (Auto) 1.8, Monocytes # (Auto) 1.1H, Eosinophils # (Auto) 0.0, Basophils # (Auto) 0.0, Immature Granulocyte # (Auto) 0.1H, Nucleated Red Blood Cells % (auto) 0.0, Anion Gap 7L, Glomerular Filtration Rate > 60.0, Blood Urea Nitrogen 12, Creatinine 0.75, Sodium Level 134L, Potassium Level 3.9, Chloride Level 100, Carbon Dioxide Level 27, Calcium Level 9.0, Aspartate Amino Transf (AST/SGOT) 141H, Alanine Aminotransferase (ALT /SGPT) 75, Alkaline Phosphatase 173H, Total Bilirubin 8.0H, Total Protein 6.7, Albumin 2.6L, Albumin/Globulin Ratio 0.63L 03/21/17 14:12: Urine Random Osmolality 543, Urine Random Creatinine 104.0, Urine Random Sodium 55 CBC/BMP Laboratory Tests 03/21/17 05:53 Red Blood Count 3.84 L, Mean Corpuscular Volume 99.0 H, Mean Corpuscular Hemoglobin 33.3 H, Mean Corpuscular Hemoglobin Concent 33.7, Red Cell Distribution Width 16.3 H, Neutrophils (%) (Auto) 76.3 H, Lymphocytes (%) (Auto ) 14.0 L, Monocytes (%) (Auto) 8.2 H, Eosinophils (%) (Auto) 0.2, Basophils (%) (Auto) 0.3, Neutrophils # (Auto) 9.8 H, Lymphocytes # (Auto) 1.8, Monocytes # ( Auto) 1.1 H, Eosinophils # (Auto) 0.0, Basophils # (Auto) 0.0, Calcium Level 9.0 , Aspartate Amino Transf (AST/SGOT) 141 H, Alanine Aminotransferase (ALT/SGPT) 75, Alkaline Phosphatase 173 H, Total Bilirubin 8.0 H, Total Protein 6.7, Albumin 2.6 L Microbiology Microbiology 03/17/17 Blood Culture - Preliminary, Resulted No Growth after 72 hours. All specime... 03/17/17 Blood Culture - Preliminary, Resulted No Growth after 72 hours. All specime... Reggie Junior MD Mar 21, 2017 19:32
[2017-03-21 22:00] VITALS: BP 136/84
[2017-03-22] MEDS: CEPHALEXIN 250 MG CAP PO SCH ×4 (00:09→17:10)
[2017-03-22 06:00] VITALS: BP 154/58
[2017-03-22 06:14] LABS: BASO % 0.3 % (0.0-1.0); EOS % 0.2 % (0.0-3.0); IMMATURE GRANULOCYTE % 0.5 % (0-0); LYMPH # 1.6 10^3/uL (1.5-4.5); LYMPH % 11.9 % (24.0-44.0); MEAN CORPUSCULAR HEMOGLOBIN 33.1 pg (27.0-33.0); MEAN CORPUSCULAR HGB CONC 33.7 g/dl (32.0-36.5); MEAN CORPUSCULAR VOLUME 98.2 fl (80.0-96.0); MONO # 0.9 10^3/uL (0.0-0.8); MONO % 6.6 % (0.0-5.0); NEUTROPHILS # 10.6 10^3/uL (1.8-7.7); NEUTROPHILS % 80.5 % (36.0-66.0); PLATELET COUNT, AUTOMATED 211 10^3/uL (150-450); RED CELL DISTRIBUTION WIDTH 16.1 % (11.5-14.5); WHITE BLOOD COUNT 13.1 10^3/uL (4.0-10.0)
[2017-03-22 06:28] LABS: ALBUMIN 2.7 GM/DL (3.2-5.2); ALBUMIN/GLOBULIN RATIO 0.69 (1.00-1.93); ALKALINE PHOSPHATASE 157 U/L (45-117); ALT/SGPT 80 U/L (12-78); ANION GAP 8 MEQ/L (8-16); AST/SGOT 127 U/L (15-37); BILIRUBIN,TOTAL 7.3 MG/DL (0.2-1.0); BLOOD UREA NITROGEN 13 MG/DL (7-18); CALCIUM LEVEL 8.5 MG/DL (8.5-10.1); CARBON DIOXIDE LEVEL 26 MEQ/L (21-32); CHLORIDE LEVEL 103 MEQ/L (98-107); CREATININE FOR GFR 0.65 MG/DL (0.70-1.30); GLOMERULAR FILTRATION RATE > 60.0 (>60); GLUCOSE, FASTING 88 MG/DL (70-105); POTASSIUM SERUM 3.7 MEQ/L (3.5-5.1); SODIUM LEVEL 137 MEQ/L (136-145); TOTAL PROTEIN 6.6 GM/DL (6.4-8.2)
[2017-03-22] MEDS: LACTULOSE 20 GM/30 ML SYRUP UD PO SCH ×2 (08:07→20:14)
[2017-03-22] MEDS: FOLIC ACID 1 MG TAB PO SCH (08:07)
[2017-03-22] MEDS: ENOXAPARIN 40 MG/0.4 ML SYRINGE (J1650) SC SCH (08:07)
[2017-03-22] MEDS: fluvoxaMINE MALEATE 50 MG TAB PO SCH ×2 (08:07→20:14)
[2017-03-22] MEDS: MULTIVITAMINS/MINERALS THERAP 1 TAB PO SCH (08:07)
[2017-03-22] MEDS: prednisoLONE (PRELONE) 15MG/5ML SYRUP UDC PO SCH (08:08)
--- NOTE | 2017-03-22 11:38 | IPN ---
DATE OF SERVICE: 03/22/2017 SUBJECTIVE: The patient was seen and examined at the bedside today morning. He was sitting in the bed. No apparent distress. Hemodynamically stable. Renal function is stable, and sodium has improved to 137 today. REVIEW OF SYSTEMS: The patient denies any fevers, chills, rigors, headache, nausea, vomiting, chest pain, shortness of breath, pain abdomen, constipation, or diarrhea. The rest of review of systems is negative. OBJECTIVE: VITAL SIGNS: Temperature is 97.6 degrees Fahrenheit, blood pressure is 154/58, pulse is 89, respiratory rate of 19, saturating 94% on room air. INTAKE AND OUTPUT: Urine output recorded is 675 mL yesterday, 775 mL so far today since overnight. Weight in the bed scale is not available. PHYSICAL EXAMINATION: GENERAL: The patient is awake, alert, oriented times three, laying in bed, no apparent distress. HEAD AND NECK EXAMINATION: Extraocular muscles intact. Pupils equally round and reactive to light. Mucous membranes are moist. Neck is supple. There is no jugular venous distention (JVD). CARDIOVASCULAR: S1, S2, regular rate. No murmur, rub, and gallop. RESPIRATORY: Chest is clear to auscultation bilaterally. Bilateral equal air entry. No rales or rhonchi. ABDOMEN: Is soft, obese. Positive bowel sounds. Nontender. No ascites. No organomegaly. MUSCULOSKELETAL: No clubbing or cyanosis. Pulses are 2+. There is mild erythema of the lower extremities. CENTRAL NERVOUS SYSTEM (PAINTER MAINTENANCE): No focal neurological deficit. No asterixis. Power is 5/5 in all extremities. PSYCHIATRIC: The patient is cooperative during examination. Slightly anxious. LABORATORY REVIEW: CBC showed a WBC of 13.1, hemoglobin 13, platelets are 211. BMP showed sodium 137, potassium 3.7, chloride 103, bicarbonate 26, BUN is 13, creatinine is 0.65, total bilirubin is 7.3 which is coming down (it was 8 yesterday), AST 127, ALT is 80, alkaline phosphatase is 157, albumin is 2.7. CURRENT INPATIENT MEDICATIONS: The patient's medications were all reviewed by me. There is no change in the medications today as compared with yesterday. ASSESSMENT: A 41-year-old male with past medical history of obsessive-compulsive disorder admitted this time because of acute hepatitis and severe hyponatremia. PLAN: 1. Hyponatremia. The patient's sodium level continues to improve. Sodium is 137 now. Continue to monitor for now. 2. Cellulitis of the lower extremities. The patient is currently on oral Keflex. White cell count is still slightly high. Part of it is secondary to steroids. The patient is clinically getting better. 3. Acute hepatitis. The patient is currently on steroid taper for possible autoimmune hepatitis. Liver function is improving. 4. Hypertension. The patient's thiazide diuretic and amlodipine was held on admission. Blood pressure is high. I am going to restart the patient on amlodipine today. 5. History of obsessive-compulsive disorder. The patient is on high dose of fluvoxamine, which is a selective serotonin reuptake inhibitor (SSRI). SSRIs can sometimes cause syndrome of inappropriate secretion of antidiuretic hormone (SIADH). Okay to continue the current dose of fluvoxamine because sodium is improving. If the patient has another episode of low sodium levels, then we would have to switch him to a non-SSRI antipsychotic.
[2017-03-22] MEDS: amLODIPine 5 MG TAB PO SCH (12:07)
[2017-03-22 14:00] VITALS: BP 112/66
--- NOTE | 2017-03-22 21:23 | IPNPDOC ---
Subjective Date Seen The patient was seen on 03/22/17. Subjective Chief Complaint/HPI The patient is a 41-year-old male admitted with a reason for visit of Hepatic Encephalopathy;Hyponatremia. Events since last encounter He reports that today was a little harder for him. He still feels that his thoughts were reasonably clear. He's feeling his neuropathic pain more now that he's been off the pregabalin for a little longer. General: Reports: Normal Appetite Pulmonary: Denies: Cough Cardiovascular: Denies: Chest Pain, Palpitations Gastrointestinal: Denies: Nausea, Abdominal Pain Psych: Reports: Mood Normal Objective Physical Examination General Exam: Positive: Alert, Cooperative, No Acute Distress (laying comfortably in his bed when I entered the room) Eye Exam: Positive: Sclera icteric ENT Exam: Positive: Atraumatic, Mucous membr. moist/pink Neck Exam: Positive: Supple, Negative: Lymphadenopathy Chest Exam: Positive: Clear to auscultation, Normal air movement Heart Exam: Positive: Rate Normal, Regular Rhythm, Normal S1, Normal S2 Abdomen Exam: Positive: Normal bowel sounds, Soft, Other (his abdomen is protuberant, it is still dull on percussion), Negative: Tenderness Extremity Exam: Positive: Normal pulses, Other (there does seem to be some increased swelling and warmth of the lower half his bilateral lower legs), Negative: Edema Skin Exam: Negative: Breakdown Neuro Exam: Positive: Normal Speech Psych Exam: Positive: Mood NL Assessment /Plan Problems (1) Hyperlipidemia Status: Chronic (2) Alcoholic hepatitis with ascites Status: Acute Problem Text: His ammonia was a little worse today than it has been. His mental status seemed about the same to me from yesterday to today, but this is not good in that doesn't seem to be improving. Meld score upon admission is 28.6 which has an estimated 19.6% 3 month mortality. His Maddrey's discriminant function score is 34.2, which is greater than 32, therefore steroids are indicated for liver failure, he'll be started on prednisolone 40 mg by mouth daily. Asked whether that he was willing to take this for an extended period time and both he and his verbalized that he is. (3) Alcoholism Status: Chronic Problem Text: I suspect there is not true acknowledgment by either the patient or his regarding how much drinking he's doing. He denies any withdrawal symptoms but did note a separate time that his shaking is much better. I think he may be undergoing some withdraws but scared to use Ativan because sedated him for so long. (4) Hepatic encephalopathy Status: Acute Response to Treatment: Improving Problem Text: Patient is still having some significant encephalopathic behavior throughout the day, though generally he is improving. We'll continue to monitor. (5) Serum ammonia increased Status: Acute Response to Treatment: Improving Problem Text: He continues on lactulose and reports regular bowel movements. I' ll recheck his ammonia level tomorrow. If his ammonia goes up again we should either increase his lactulose frequency or consider adding rifaximin. (6) Hyponatremia Status: Resolved Problem Text: His sodium is now normalized at 137. Continue current regimen, monitor. 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 (12) Anemia Status: Chronic (13) History of depression Status: Chronic (14) History of OCD (obsessive compulsive disorder) Status: Chronic Plan/VTE VTE Prophylaxis Ordered?: Yes (teds and sequentials) VTE Exclusion Mechanical Proph: Other VS, I&O, 24H, Fishbone Vital Signs/I&O Vital Signs Date Time Temp Pulse Resp B/P (MAP) Pulse Ox O2 Delivery O2 Flow Rate FiO2 03/22/17 14:00 98.9 87 18 112/66 (81) 95 Room Air 03/19/17 10:00 2.0 I&O- Last 24 Hours up to 6 AM 03/23/17 06:00 Intake Total 500 ml Output Total 375 ml Balance 125 ml Laboratory Data 24H LABS Laboratory Tests 2 03/22/17 05:48: Immature Granulocyte % (Auto) 0.5H, White Blood Count 13.1H, Red Blood Count 3.93L, Hemoglobin 13.0L, Hematocrit 38.6L, Mean Corpuscular Volume 98.2H, Mean Corpuscular Hemoglobin 33.1H, Mean Corpuscular Hemoglobin Concent 33.7, Red Cell Distribution Width 16.1H, Platelet Count 211, Neutrophils (%) (Auto) 80.5H , Lymphocytes (%) (Auto) 11.9L, Monocytes (%) (Auto) 6.6H, Eosinophils (%) (Auto ) 0.2, Basophils (%) (Auto) 0.3, Neutrophils # (Auto) 10.6H, Lymphocytes # (Auto ) 1.6, Monocytes # (Auto) 0.9H, Eosinophils # (Auto) 0.0, Basophils # (Auto) 0.0 , Immature Granulocyte # (Auto) 0.1H, Nucleated Red Blood Cells % (auto) 0.0, Anion Gap 8, Glomerular Filtration Rate > 60.0, Blood Urea Nitrogen 13, Creatinine 0.65L, Sodium Level 137, Potassium Level 3.7, Chloride Level 103, Carbon Dioxide Level 26, Calcium Level 8.5, Aspartate Amino Transf (AST/SGOT) 127H, Alanine Aminotransferase (ALT/SGPT) 80H, Alkaline Phosphatase 157H, Total Bilirubin 7.3H, Total Protein 6.6, Albumin 2.7L, Ammonia 50H, Albumin/Globulin Ratio 0.69L CBC/BMP Laboratory Tests 03/22/17 05:48 Red Blood Count 3.93 L, Mean Corpuscular Volume 98.2 H, Mean Corpuscular Hemoglobin 33.1 H, Mean Corpuscular Hemoglobin Concent 33.7, Red Cell Distribution Width 16.1 H, Neutrophils (%) (Auto) 80.5 H, Lymphocytes (%) (Auto ) 11.9 L, Monocytes (%) (Auto) 6.6 H, Eosinophils (%) (Auto) 0.2, Basophils (%) (Auto) 0.3, Neutrophils # (Auto) 10.6 H, Lymphocytes # (Auto) 1.6, Monocytes # ( Auto) 0.9 H, Eosinophils # (Auto) 0.0, Basophils # (Auto) 0.0, Calcium Level 8.5 , Aspartate Amino Transf (AST/SGOT) 127 H, Alanine Aminotransferase (ALT/SGPT) 80 H, Alkaline Phosphatase 157 H, Total Bilirubin 7.3 H, Total Protein 6.6, Albumin 2.7 L Microbiology Microbiology 03/17/17 Blood Culture - Final, Complete NO GROWTH AFTER 5 DAYS 03/17/17 Blood Culture - Final, Complete NO GROWTH AFTER 5 DAYS Reggie Junior MD Mar 22, 2017 9:23 pm
[2017-03-22 22:00] VITALS: BP 140/86
[2017-03-23] MEDS: CEPHALEXIN 250 MG CAP PO SCH ×4 (00:12→18:04)
[2017-03-23 06:00] VITALS: BP 114/82
[2017-03-23 06:35] LABS: BASO % 0.2 % (0.0-1.0); EOS % 0.2 % (0.0-3.0); IMMATURE GRANULOCYTE % 0.4 % (0-0); LYMPH # 1.5 10^3/uL (1.5-4.5); MEAN CORPUSCULAR HEMOGLOBIN 34.1 pg (27.0-33.0); MEAN CORPUSCULAR HGB CONC 34.1 g/dl (32.0-36.5); MONO # 0.8 10^3/uL (0.0-0.8); MONO % 6.7 % (0.0-5.0); NEUTROPHILS # 9.8 10^3/uL (1.8-7.7); NEUTROPHILS % 80.5 % (36.0-66.0); PLATELET COUNT, AUTOMATED 212 10^3/uL (150-450); RED CELL DISTRIBUTION WIDTH 15.9 % (11.5-14.5); WHITE BLOOD COUNT 12.1 10^3/uL (4.0-10.0)
[2017-03-23 07:08] LABS: ALBUMIN 2.6 GM/DL (3.2-5.2); ALBUMIN/GLOBULIN RATIO 0.65 (1.00-1.93); ALKALINE PHOSPHATASE 165 U/L (45-117); ALT/SGPT 91 U/L (12-78); ANION GAP 6 MEQ/L (8-16); AST/SGOT 143 U/L (15-37); BILIRUBIN,TOTAL 7.6 MG/DL (0.2-1.0); BLOOD UREA NITROGEN 12 MG/DL (7-18); CALCIUM LEVEL 8.5 MG/DL (8.5-10.1); CARBON DIOXIDE LEVEL 28 MEQ/L (21-32); CHLORIDE LEVEL 103 MEQ/L (98-107); CREATININE FOR GFR 0.75 MG/DL (0.70-1.30); GLOMERULAR FILTRATION RATE > 60.0 (>60); GLUCOSE, FASTING 89 MG/DL (70-105); POTASSIUM SERUM 3.5 MEQ/L (3.5-5.1); SODIUM LEVEL 137 MEQ/L (136-145); TOTAL PROTEIN 6.6 GM/DL (6.4-8.2)
[2017-03-23] MEDS: ENOXAPARIN 40 MG/0.4 ML SYRINGE (J1650) SC SCH (08:54)
[2017-03-23] MEDS: LACTULOSE 20 GM/30 ML SYRUP UD PO SCH ×3 (08:54→21:07)
[2017-03-23] MEDS: MULTIVITAMINS/MINERALS THERAP 1 TAB PO SCH (08:55)
[2017-03-23] MEDS: prednisoLONE (PRELONE) 15MG/5ML SYRUP UDC PO SCH (08:55)
[2017-03-23] MEDS: fluvoxaMINE MALEATE 50 MG TAB PO SCH ×2 (08:55→21:07)
[2017-03-23] MEDS: FOLIC ACID 1 MG TAB PO SCH (08:55)
[2017-03-23] MEDS: amLODIPine 5 MG TAB PO SCH (08:58)
--- NOTE | 2017-03-23 09:09 | IPNPDOC ---
Subjective Date Seen The patient was seen on 03/23/17. Subjective Chief Complaint/HPI The patient is a 41-year-old male admitted with a reason for visit of Hepatic Encephalopathy;Hyponatremia. Events since last encounter Pt states he is feeling a little better today. Denies any new issues. Denies pain, abd pain, CP, SOB. Pt feels his mental status has improved since admission. Constitutional: Denies: Chills, Fever Pulmonary: Denies: Dyspnea Cardiovascular: Denies: Chest Pain Gastrointestinal: Denies: Abdominal Pain Objective Physical Examination General Exam: Positive: Alert, Cooperative, No Acute Distress (laying comfortably in his bed when I entered the room) Eye Exam: Positive: Sclera icteric ENT Exam: Positive: Atraumatic, Mucous membr. moist/pink Neck Exam: Positive: Supple, Negative: Lymphadenopathy Chest Exam: Positive: Clear to auscultation, Normal air movement Heart Exam: Positive: Rate Normal, Regular Rhythm, Normal S1, Normal S2 Abdomen Exam: Positive: Normal bowel sounds, Soft, Other (his abdomen is protuberant, it is still dull on percussion), Negative: Tenderness Extremity Exam: Positive: Normal pulses, Other (there does seem to be some erythema and warmth of the lower half his bilateral lower legs, but no swelling noted), Negative: Edema Skin Exam: Negative: Breakdown Neuro Exam: Positive: Normal Speech Psych Exam: Positive: Mood NL Assessment /Plan Problems (1) Alcoholic hepatitis with ascites Status: Acute Problem Text: 03/23 - Ammonia level up to 55 today (50 yesterday). On lactulose 30 ml BID. Pt reports 2 loose stools daily. Increase lactulose to TID. May consider adding Xifaxan. Discuss with attending. Pt is on prednisone. 03/22 - His ammonia was a little worse today than it has been. His mental status seemed about the same to me from yesterday to today, but this is not good in that doesn't seem to be improving. Meld score upon admission is 28.6 which has an estimated 19.6% 3 month mortality. His Maddrey's discriminant function score is 34.2, which is greater than 32, therefore steroids are indicated for liver failure, he'll be started on prednisolone 40 mg by mouth daily. Asked whether that he was willing to take this for an extended period time and both he and his verbalized that he is. (2) Serum ammonia increased Status: Acute Response to Treatment: Improving Problem Text: 03/23 - Ammonia level up to 55 today (50 yesterday). On lactulose 30 ml BID. Pt reports 2 loose stools daily. Increase lactulose to TID. May consider adding Xifaxan. Discuss with attending. 03/22 - He continues on lactulose and reports regular bowel movements. I'll recheck his ammonia level tomorrow. If his ammonia goes up again we should either increase his lactulose frequency or consider adding rifaximin. (3) Hepatic encephalopathy Status: Acute Response to Treatment: Improving Problem Text: 03/23 - Nursing reports pt's encephalopathic behavior has decreased. 03/22 - Patient is still having some significant encephalopathic behavior throughout the day, though generally he is improving. We'll continue to monitor. (4) Alcoholism Status: Chronic Problem Text: I suspect there is not true acknowledgment by either the patient or his regarding how much drinking he's doing. He denies any withdrawal symptoms but did note a separate time that his shaking is much better. I think he may be undergoing some withdraws but scared to use Ativan because sedated him for so long. (5) Hyponatremia Status: Resolved Problem Text: 03/23 - Na stable at 137. Nephrology following. Pt is on Fluvoxamine which is an SSRI, which could potentially cause SIADH. Nephrology notes that can continue current dose of the fluvoxamine for now but if Na levels decrease again, may need to switch to non-SSRI med. 03/22 - His sodium is now normalized at 137. Continue current regimen, monitor. (6) Hyperbilirubinemia Status: Acute Response to Treatment: Improving (7) Alcoholic fatty liver Status: Chronic (8) Hypertension Status: Chronic Problem Specific Plan: Monitor Clinically Problem Text: 03/23 - Amlodipine was started yesterday. 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 Na stable at 137. Nephrology following. Nephrology notes that can continue current dose of the fluvoxamine for now but if Na levels decrease again, may need to switch to non-SSRI med. (13) History of OCD (obsessive compulsive disorder) Status: Chronic Problem Specific Plan: Monitor Clinically Problem Text: 10 - Pt is on Fluvoxamine which is an SSRI, which could potentially cause SIADH. Na stable at 137. Nephrology following. Nephrology notes that can continue current dose of the fluvoxamine for now but if Na levels decrease again, may need to switch to non-SSRI med. (14) Hyperlipidemia Status: Chronic Plan/VTE VTE Prophylaxis Ordered?: Yes (teds and sequentials) VTE Exclusion Mechanical Proph: Other VS, I&O, 24H, Fishbone Vital Signs/I&O Vital Signs Date Time Temp Pulse Resp B/P (MAP) Pulse Ox O2 Delivery O2 Flow Rate FiO2 03/23/17 06:00 98.5 87 18 114/82 (93) 95 Room Air 03/19/17 10:00 2.0 I&O- Last 24 Hours up to 6 AM 03/24/17 05:59 Intake Total 0 ml Output Total 450 ml Balance -450 ml Laboratory Data 24H LABS Laboratory Tests 2 03/23/17 06:26: Immature Granulocyte % (Auto) 0.4H, White Blood Count 12.1H, Red Blood Count 3.78L, Hemoglobin 12.9L, Hematocrit 37.8L, Mean Corpuscular Volume 100.0H, Mean Corpuscular Hemoglobin 34.1H, Mean Corpuscular Hemoglobin Concent 34.1, Red Cell Distribution Width 15.9H, Platelet Count 212, Neutrophils (%) (Auto) 80.5H , Lymphocytes (%) (Auto) 12.0L, Monocytes (%) (Auto) 6.7H, Eosinophils (%) (Auto ) 0.2, Basophils (%) (Auto) 0.2, Neutrophils # (Auto) 9.8H, Lymphocytes # (Auto ) 1.5, Monocytes # (Auto) 0.8, Eosinophils # (Auto) 0.0, Basophils # (Auto) 0.0 , Immature Granulocyte # (Auto) 0.1H, Nucleated Red Blood Cells % (auto) 0.0, Anion Gap 6L, Glomerular Filtration Rate > 60.0, Blood Urea Nitrogen 12, Creatinine 0.75, Sodium Level 137, Potassium Level 3.5, Chloride Level 103, Carbon Dioxide Level 28, Calcium Level 8.5, Aspartate Amino Transf (AST/SGOT) 143H, Alanine Aminotransferase (ALT/SGPT) 91H, Alkaline Phosphatase 165H, Total Bilirubin 7.6H, Total Protein 6.6, Albumin 2.6L, Ammonia 55H, Albumin/Globulin Ratio 0.65L CBC/BMP Laboratory Tests 03/23/17 06:26 Red Blood Count 3.78 L, Mean Corpuscular Volume 100.0 H, Mean Corpuscular Hemoglobin 34.1 H, Mean Corpuscular Hemoglobin Concent 34.1, Red Cell Distribution Width 15.9 H, Neutrophils (%) (Auto) 80.5 H, Lymphocytes (%) (Auto ) 12.0 L, Monocytes (%) (Auto) 6.7 H, Eosinophils (%) (Auto) 0.2, Basophils (%) (Auto) 0.2, Neutrophils # (Auto) 9.8 H, Lymphocytes # (Auto) 1.5, Monocytes # ( Auto) 0.8, Eosinophils # (Auto) 0.0, Basophils # (Auto) 0.0, Calcium Level 8.5, Aspartate Amino Transf (AST/SGOT) 143 H, Alanine Aminotransferase (ALT/SGPT) 91 H, Alkaline Phosphatase 165 H, Total Bilirubin 7.6 H, Total Protein 6.6, Albumin 2.6 L Microbiology Microbiology 03/17/17 Blood Culture - Final, Complete NO GROWTH AFTER 5 DAYS 03/17/17 Blood Culture - Final, Complete NO GROWTH AFTER 5 DAYS Favian Mcginnis RPA-C Mar 23, 2017 09:08
[2017-03-23] MEDS ORDERED: POTASSIUM CHLORIDE 10% LIQ 20 MEQ/15 ML UDC PO ONE (12:00)
--- NOTE | 2017-03-23 12:46 | IPN ---
DATE: 03/23/2017 SUBJECTIVE: The patient is seen this morning at the bedside. He denies any acute complaints. He is in no apparent distress. He is tolerating a soft diet without any issues. He remains on seizure precautions. His sodium is stable at 137 today. He has a fluid pitcher at the bedside and reports drinking 1.5 to 2 pitchers of fluids daily. REVIEW OF SYSTEMS: The patient denies fevers, chills, headache, nausea, vomiting, chest pain, shortness of breath, abdominal pain. The remainder of review of systems is negative. OBJECTIVE: Temperature 98.5. Pulse 87. Respiratory rate 18. Blood pressure 114/82. Saturating 95% on room air. Oral intake 1360, 3 bowel movements recorded, no weight on the bed scale today. PHYSICAL EXAMINATION: The patient is awake, alert and oriented times three, lying in bed. Head of bed elevated at 30 degrees, in no apparent distress. HEAD AND NECK EXAMINATION: Extraocular muscles are intact. Mucous membranes are moist. Neck is supple. CARDIOVASCULAR: S1, S2, regular rate. No murmur. 2+ radial pulse. RESPIRATORY: Clear to auscultation bilaterally. ABDOMEN: Soft. Obese. Protuberant. Non tender. EXTREMITIES: No edema in the lower extremities. Lower extremities are nontender to palpation and there is mild erythema present. CENTRAL NERVOUS SYSTEM: The patient converses appropriately. No focal deficit appreciated. Speech is normal. LABS: White count 12.1, hemoglobin 12.9 and platelets 212. Sodium 137, potassium 3.5, bicarbonate 28, creatinine 0.7, calcium 8.5, total bilirubin 7.6, AST 143, ALT 91, ammonia 55. INPATIENT MEDICATIONS: Reviewed by myself. - Norvasc 5 mg daily - Keflex 250 mg by mouth every 6 - lactulose 30 mL by mouth every 8 - prednisolone 40 mg by mouth daily - multivitamin daily - folic acid 1 mg by mouth daily - fluvoxamine 150 mg by mouth every a.m. and 50 mg by mouth every p.m. - Lovenox 40 mg subcutaneous daily ASSESSMENT: 41-year-old male with past medical history of obsessive compulsive disorder, hypertension, alcohol abuse and depression admitted with acute hepatitis with hepatic encephalopathy and hyponatremia. 1. Hyponatremia. The patient's sodium over the past 48 hours has stabilized, 137 today. He remains off of IV fluids. His fluid intake is about 1500 mL daily, which is appropriate at this time. Okay to continue with selective serotonin reuptake inhibitor (SSRI). 2. Acute hepatitis with hepatic encephalopathy. The patient remains on steroids. His lactulose dose was increased as his ammonia level increased. 3. Hypertension, controlled at this time on amlodipine. I do not recommend that the patient be discharged on chlorthalidone which was his previous home medication due to risk of thiazide induced hyponatremia. 4. The patient's sodium is stable for the past 48 hours. Nephrology will be signing off at this time. Okay to continue the current dose of fluvoxamine. Recommend 1.5 to 2 liters fluid restriction. The patient was previously on chlorthalidone at home. Would hold off in the future given risk of thiazide induced hyponatremia in this patient who is already at risk for hyponatremia due to alcoholism, OCD and chronic SSRI use.
[2017-03-23 14:00] VITALS: BP 121/66
[2017-03-23] MEDS: ACETAMINOPHEN TAB 650MG DOSE (2X325MG) PO PRN (18:08)
[2017-03-23 22:00] VITALS: BP 128/79
[2017-03-24] MEDS: CEPHALEXIN 250 MG CAP PO SCH ×4 (00:17→17:45)
[2017-03-24] MEDS: LACTULOSE 20 GM/30 ML SYRUP UD PO SCH ×3 (05:22→21:07)
[2017-03-24 06:00] VITALS: BP 135/85
[2017-03-24 06:25] LABS: BASO % 0.2 % (0.0-1.0); EOS % 0.2 % (0.0-3.0); IMMATURE GRANULOCYTE % 0.3 % (0-0); LYMPH # 1.7 10^3/uL (1.5-4.5); MEAN CORPUSCULAR HEMOGLOBIN 33.9 pg (27.0-33.0); MEAN CORPUSCULAR HGB CONC 33.8 g/dl (32.0-36.5); MEAN CORPUSCULAR VOLUME 100.2 fl (80.0-96.0); MONO # 0.8 10^3/uL (0.0-0.8); MONO % 5.8 % (0.0-5.0); NEUTROPHILS # 10.3 10^3/uL (1.8-7.7); NEUTROPHILS % 80.5 % (36.0-66.0); PLATELET COUNT, AUTOMATED 236 10^3/uL (150-450); RED CELL DISTRIBUTION WIDTH 15.9 % (11.5-14.5); WHITE BLOOD COUNT 12.9 10^3/uL (4.0-10.0)
[2017-03-24 06:57] LABS: ALBUMIN 2.8 GM/DL (3.2-5.2); ALBUMIN/GLOBULIN RATIO 0.72 (1.00-1.93); ALKALINE PHOSPHATASE 179 U/L (45-117); ALT/SGPT 115 U/L (12-78); ANION GAP 5 MEQ/L (8-16); AST/SGOT 157 U/L (15-37); BILIRUBIN,TOTAL 7.3 MG/DL (0.2-1.0); BLOOD UREA NITROGEN 12 MG/DL (7-18); CALCIUM LEVEL 8.6 MG/DL (8.5-10.1); CARBON DIOXIDE LEVEL 30 MEQ/L (21-32); CHLORIDE LEVEL 104 MEQ/L (98-107); GLOMERULAR FILTRATION RATE > 60.0 (>60); GLUCOSE, FASTING 100 MG/DL (70-105); POTASSIUM SERUM 3.8 MEQ/L (3.5-5.1); SODIUM LEVEL 139 MEQ/L (136-145); TOTAL PROTEIN 6.7 GM/DL (6.4-8.2)
[2017-03-24] MEDS: FOLIC ACID 1 MG TAB PO SCH (09:53)
[2017-03-24] MEDS: MULTIVITAMINS/MINERALS THERAP 1 TAB PO SCH (09:53)
[2017-03-24] MEDS: ENOXAPARIN 40 MG/0.4 ML SYRINGE (J1650) SC SCH (09:54)
[2017-03-24] MEDS: amLODIPine 5 MG TAB PO SCH (09:54)
[2017-03-24 10:00] VITALS: BP 129/75
[2017-03-24] MEDS: fluvoxaMINE MALEATE 50 MG TAB PO SCH ×2 (10:05→19:54)
[2017-03-24] MEDS: prednisoLONE (PRELONE) 15MG/5ML SYRUP UDC PO SCH (10:05)
--- NOTE | 2017-03-24 12:54 | IPN ---
DATE: 03/24/2017 Roland was seen [facility]. With his permission, his father, who is visiting, was included in the discussion summarized below. The patient gave me permission to discuss all aspects of his medical care today and in the future with his father, Marc. Roland was admitted with alcoholic hepatitis. He had a MELD score of 28.6 and a Maddrey's discriminate function score of 34. He is on prednisolone 40 mg daily. He has not had significant improvement of liver function. His bilirubin remains elevated at 7.3 and has not improved over the last three days. His AST is about the same as when he came in. INR on admission was 1.44. When he was admitted, there was no GI coverage so he has not seen gastroenterology yet. He has been seen by nephrology for severe hyponatremia with a sodium of 109. He has hepatic encephalopathy with elevated ammonia level and altered mental status and coagulopathy secondary to liver injury and a history of alcoholism with the patient admitting to 6 to 12 alcoholic drinks per day on average. He wants to go home. He feels he is ready to go home. He tells me that he has a "system set up" with his (who also has alcoholism history) to abstain from alcohol. He is in denial over the severity of his current situation. PHYSICAL EXAMINATION: Blood pressure 129/60. Pulse 89. Respiratory rate 18. 96% oxygen saturation. He is alert, conversing and knows the month, year, and the president. He recognized me upon entering the room. No jugular venous distention. Lungs clear. Neck supple. Heart regular rhythm, without murmur. Abdomen soft. Mildly distended. No peripheral edema. He is visibly jaundiced. LABS: Ammonia 53. AST 157. ALT 115. Bilirubin 7.3. Sodium is up to 139. Creatinine is normal. White count 12.9 on steroids. Hemoglobin 13.6. Platelets 236. IMPRESSIONS: 1. Acute alcoholic hepatitis with ascites. His ammonia level remains elevated. We increased his lactulose. We might have to add Rifaximin. He is on prednisolone 40 mg daily. I have consulted gastroenterology. We do have GI coverage today. 2. Hepatic encephalopathy. Increase lactulose. Try to get three to four loose stools per day. Consider adding Rifaximin. 3. Alcoholism. A long discussion with patient and with his consent his father was included in this discussion. He has had several hospitalizations over the years for alcoholism related medical problems. He has never been as severely ill as this. I think he needs to consider an inpatient alcohol rehabilitation program after he is medically stable. He is refusing this recommendation, but it is too early in the hospitalization to be talking about disposition anyway. At least, I have put the idea on the table and I also discussed with the patient and his father that his mental status, though clear enough to make rational choices today, might not be to the point where it was prior to his current episode of alcoholic hepatitis. 4. Hyponatremia. His hyponatremia is improved. He is on a selective serotonin reuptake inhibitor (SSRI), but I do not want to take that off. It has helped with his OCD significantly. 5. Hypertension. Should not restart thiazide in the future due to his hyponatremia. 6. Ascites. He is on Keflex for spontaneous bacterial peritonitis prophylaxis.
[2017-03-24 14:00] VITALS: BP 137/76
--- NOTE | 2017-03-24 15:18 | REP ---
LIMITED ABDOMINAL ULTRASOUND: Real-time sonographic evaluation of abdomen performed to evaluate for ascites. There is moderate diffuse ascites in the right side of the abdomen. Minimal ascites is seen on the left side of the abdomen. Signed by Holden Reinoso MD 03/24/2017 04:15 P
[2017-03-24] MEDS: ACETAMINOPHEN TAB 650MG DOSE (2X325MG) PO PRN (19:55)
[2017-03-24 22:00] VITALS: BP 134/86
[2017-03-25] MEDS: CEPHALEXIN 250 MG CAP PO SCH ×4 (00:13→17:12)
--- NOTE | 2017-03-25 00:31 | CR.PDOC ---
[facility] Consultation Consultation DATE OF CONSULTATION: Mar 24, 2017 at 17:50 Primary physician/ hospitalist: Dr. Knott. . Reason for consult: Acute alcoholic hepatitis. and abnormal LFTs. HPI: 41-year-old male patient with HTN, HLD, h/o heavy alcohol use ( h/o alcoholic hepatitis in past), was admitted for AMS initally, treated in ICU for hepatic encephalopathy, now improved and being treated for alcoholic hepatitis with steroids. Patient noted with abnormal LFTs ( trend improving) and GI consulted for the same. Patient reports since he was hospital he decided to completely quit alcohol. Patient is currently AAO x 3. Currently patient denied any GI symptoms but looks mild tremulous. Pertinent negative GI symptoms: Patient denies nausea, vomiting, diarrhea, abdominal pain, loss of appetite, early satiety or unintentional weight loss. No history of hematemesis, melena or hematochezia. Patient reports regular bowel movements. Review of Systems: GI: as stated above CVS: No chest pain, No palpitations, mild leg swelling intermittently in past. RS: Had asthma episodes with Shortness of breath, Wheezing intermittently. no cough [employer]: No dizziness, No motor weakness, No sensory problems Hematology: No bruising, No gum bleeding, Musculoskeletal: ambulating well. Skin: No rash : No hematuria, No burning sensation of the urine ENT: No ear discharge/ pain, No dysphagia. Eyes: No photophobia. Home medications: reviewed. Antithrombotic agents none.. Medical h/o: As above. Surgical h/o: None on abdomen. Social h/o: Alcohol use - heavy - but says he decided to quit since hospitalization. denies smoking, IVDA/ drugs . Works in [employer]. Family h/o of GI cancers - None Prior Endoscopies: None. Exam: Vitals: reviewed. General: Alert and oriented x 3, Moderate distress from tremulousness. HEENT: NO pallor, no icterus. Normal oropharynx, NO cervical lymph nodes. Chest: symmetric with bilateral clear air entry, CVS: S1, S2 heard, normal, no murmurs . Abdomen: non-distended, obese, no surgical scars, Non tender, NO rigidity or guarding, no palpable masses, normal bowel sounds heard. Rectal exam: deferred.. Extremities: no pedal edema, pulses palpable. 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 Moves all extremities Skin: no rash. Labs: reviewed. USG abdomen done today showed ascites. Impression: - H/o heavy alcohol use and Acute alcoholic hepatitis. ( DF 34). - Abnormal LFTs - likely from alcoholic hepatitis. IN view intraabdominal fluid collection need to r/o ascites. Recommendations: - Patient educated about the test results, possible differential diagnoses and All questions answered. - Diet as tolerated. - Monitor LFTs and CBC daily. - Avoid hepatotoxic medications. - Give thiamine and folate and Multivitamin daily. - Patient educated about cessation of alcohol. - Will obtain Autoimmune hepatitis panel and HAV ig G. Depending on results - needs Hepatitis A and B vaccines Electively. - FOr ascites - please obtain IR guided diagnostic paracentesis -- Send fluid for for culture/sensitivity, Grams Stain, Total protein, Albumin, cell count, cytology, LDH. Please send simultaneously drawn LFTs.. - Low salt diet (2gm sodium diet). Daily weights. - Due to recent alcohol use would not be candidate for liver transplant referral. - Upon discharge patient need to follow up in GI clinic. - Recall GI if paracentesis is done. Plan of care discussed with patient his family and primary team.Patient verbalized understanding. Allergies Coded Allergies: Lisinopril (Verified Allergy, Severe, lip swelling, 03/16/17) Home Medications Scheduled Amlodipine Besylate (Amlodipine Besylate) 5 Mg Tab, 5 MG PO DAILY, (Reported) Atorvastatin Calcium (Atorvastatin Calcium) 10 Mg Tab, 10 MG PO QHS, (Reported) Chlorthalidone (Chlorthalidone) 25 Mg Tab, 25 MG PO DAILY, (Reported) Fluvoxamine Maleate (Fluvoxamine Maleate) 100 Mg Tab, 150 MG PO QAM, (Reported) Fluvoxamine Maleate (Fluvoxamine Maleate) 100 Mg Tab, 50 MG PO QPM, (Reported) Gabapentin (Neurontin) 600 Mg Tab, 600 MG PO TID, (Reported) Scheduled PRN Meloxicam (Meloxicam) 15 Mg Tab, 15 MG PO DAILY PRN for PAIN, (Reported) LIZBETH CORLEY MD Mar 25, 2017 00:26
[2017-03-25] MEDS: LACTULOSE 20 GM/30 ML SYRUP UD PO SCH ×3 (05:07→21:54)
[2017-03-25 06:00] VITALS: BP 141/78
[2017-03-25 06:34] LABS: BASO % 0.2 % (0.0-1.0); EOS % 0.2 % (0.0-3.0); IMMATURE GRANULOCYTE % 0.5 % (0-0); LYMPH # 1.8 10^3/uL (1.5-4.5); LYMPH % 13.9 % (24.0-44.0); MEAN CORPUSCULAR HEMOGLOBIN 33.8 pg (27.0-33.0); MEAN CORPUSCULAR HGB CONC 33.7 g/dl (32.0-36.5); MEAN CORPUSCULAR VOLUME 100.3 fl (80.0-96.0); MONO # 0.8 10^3/uL (0.0-0.8); MONO % 5.7 % (0.0-5.0); NEUTROPHILS # 10.4 10^3/uL (1.8-7.7); NEUTROPHILS % 79.5 % (36.0-66.0); PLATELET COUNT, AUTOMATED 257 10^3/uL (150-450); RED CELL DISTRIBUTION WIDTH 15.5 % (11.5-14.5); WHITE BLOOD COUNT 13.1 10^3/uL (4.0-10.0)
[2017-03-25 06:46] LABS: INR 1.51
[2017-03-25 07:08] LABS: ALBUMIN 2.8 GM/DL (3.2-5.2); ALBUMIN/GLOBULIN RATIO 0.74 (1.00-1.93); ALKALINE PHOSPHATASE 170 U/L (45-117); ALT/SGPT 125 U/L (12-78); ANION GAP 7 MEQ/L (8-16); AST/SGOT 147 U/L (15-37); BILIRUBIN,TOTAL 6.5 MG/DL (0.2-1.0); BLOOD UREA NITROGEN 13 MG/DL (7-18); CALCIUM LEVEL 8.7 MG/DL (8.5-10.1); CARBON DIOXIDE LEVEL 28 MEQ/L (21-32); CHLORIDE LEVEL 104 MEQ/L (98-107); CREATININE FOR GFR 0.75 MG/DL (0.70-1.30); GLOMERULAR FILTRATION RATE > 60.0 (>60); GLUCOSE, FASTING 92 MG/DL (70-105); POTASSIUM SERUM 3.8 MEQ/L (3.5-5.1); SODIUM LEVEL 139 MEQ/L (136-145); TOTAL PROTEIN 6.6 GM/DL (6.4-8.2)
[2017-03-25] MEDS: ENOXAPARIN 40 MG/0.4 ML SYRINGE (J1650) SC SCH (09:45)
[2017-03-25] MEDS: amLODIPine 5 MG TAB PO SCH (09:46)
[2017-03-25] MEDS: FOLIC ACID 1 MG TAB PO SCH (09:46)
[2017-03-25] MEDS: THIAMINE 100 MG TAB PO SCH (09:46)
[2017-03-25] MEDS: MULTIVITAMINS/MINERALS THERAP 1 TAB PO SCH (09:46)
[2017-03-25] MEDS: fluvoxaMINE MALEATE 50 MG TAB PO SCH ×2 (09:46→21:54)
[2017-03-25] MEDS: prednisoLONE (PRELONE) 15MG/5ML SYRUP UDC PO SCH (09:47)
[2017-03-25 10:00] VITALS: BP 126/75
[2017-03-25] MEDS: ACETAMINOPHEN TAB 650MG DOSE (2X325MG) PO PRN ×2 (11:06→17:15)
--- NOTE | 2017-03-25 12:30 | IPNPDOC ---
Subjective Date Seen The patient was seen on 03/25/17. Subjective Chief Complaint/HPI The patient is a 41-year-old male admitted with a reason for visit of Hepatic Encephalopathy;Hyponatremia. Events since last encounter Pt denies new issues. Denies CP, SOB, Abd pain. Constitutional: Denies: Chills, Fever Pulmonary: Denies: Dyspnea Cardiovascular: Denies: Chest Pain Gastrointestinal: Denies: Abdominal Pain Objective Physical Examination General Exam: Positive: Alert, Cooperative, No Acute Distress (laying comfortably in his bed when I entered the room) Eye Exam: Positive: Sclera icteric ENT Exam: Positive: Atraumatic, Mucous membr. moist/pink Neck Exam: Positive: Supple, Negative: Lymphadenopathy Chest Exam: Positive: Clear to auscultation, Normal air movement Heart Exam: Positive: Rate Normal, Regular Rhythm, Normal S1, Normal S2 Abdomen Exam: Positive: Normal bowel sounds, Soft, Other (his abdomen is protuberant, it is still dull on percussion), Negative: Tenderness Extremity Exam: Positive: Normal pulses, Other (there does seem to be some erythema and warmth of the lower half his bilateral lower legs, but no swelling noted), Negative: Edema Skin Exam: Negative: Breakdown Neuro Exam: Positive: Normal Speech Psych Exam: Positive: Mood NL Assessment /Plan Problems (1) Alcoholic hepatitis with ascites Status: Acute Problem Text: 03/25 - Ammonia level 50 (53 yesterday). On Lactulose 30 mls TID. May consider adding Rifaximin. He is on prednisolone 40 mg daily. He is on Keflex for spontaneous bacterial peritonitis prophylaxis. Abd U/S: Moderate diffuse ascites in the right side of the abdomen. Minimal ascites is seen on the left side of the abdomen. GI was consulted and pt was seen by Dr Reynolds who ordered autoimmune hep panel and hep A. He discussed paracentesis and fluid be sent for c&s, gram stain, total protein, albumin, cell count, cytology, LDH. Discuss with attending. 03/23 - Ammonia level up to 55 today (50 yesterday). On lactulose 30 ml BID. Pt reports 2 loose stools daily. Increase lactulose to TID. May consider adding Xifaxan. Discuss with attending. Pt is on prednisone. 03/22 - His ammonia was a little worse today than it has been. His mental status seemed about the same to me from yesterday to today, but this is not good in that doesn't seem to be improving. Meld score upon admission is 28.6 which has an estimated 19.6% 3 month mortality. His Maddrey's discriminant function score is 34.2, which is greater than 32, therefore steroids are indicated for liver failure, he'll be started on prednisolone 40 mg by mouth daily. Asked whether that he was willing to take this for an extended period time and both he and his verbalized that he is. (2) Serum ammonia increased Status: Acute Response to Treatment: Improving Problem Text: 03/25 - Ammonia level 50 (53 yesterday). On Lactulose 30 mls TID. May consider adding Rifaximin. He is on prednisolone 40 mg daily. He is on Keflex for spontaneous bacterial peritonitis prophylaxis. Abd U/S: Moderate diffuse ascites in the right side of the abdomen. Minimal ascites is seen on the left side of the abdomen. GI was consulted and pt was seen by Dr Reynolds who ordered autoimmune hep panel and hep A. He discussed paracentesis and fluid be sent for c&s, gram stain, total protein, albumin, cell count, cytology, LDH. Discuss with attending. 03/23 - Ammonia level up to 55 today (50 yesterday). On lactulose 30 ml BID. Pt reports 2 loose stools daily. Increase lactulose to TID. May consider adding Xifaxan. Discuss with attending. 03/22 - He continues on lactulose and reports regular bowel movements. I'll recheck his ammonia level tomorrow. If his ammonia goes up again we should either increase his lactulose frequency or consider adding rifaximin. (3) Hepatic encephalopathy Status: Acute Response to Treatment: Improving Problem Text: 03/23 - Nursing reports pt's encephalopathic behavior has decreased. 03/22 - Patient is still having some significant encephalopathic behavior throughout the day, though generally he is improving. We'll continue to monitor. (4) Alcoholism Status: Chronic Problem Text: 03/25 - Dr Gil had discussion with pt and father on 03/24/17 , and discussed inpt alcohol rehab. I suspect there is not true acknowledgment by either the patient or his regarding how much drinking he's doing. He denies any withdrawal symptoms but did note a separate time that his shaking is much better. I think he may be undergoing some withdraws but scared to use Ativan because sedated him for so long. (5) Hyponatremia Status: Resolved Problem Text: 03/25 - Na 139. Nephrology has been following. Pt is on SSRI for OCD and nephrology feels that it is ok to continue that at present since his Na has improved. 03/23 - Na stable at 137. Nephrology following. Pt is on Fluvoxamine which is an SSRI, which could potentially cause SIADH. Nephrology notes that can continue current dose of the fluvoxamine for now but if Na levels decrease again , may need to switch to non-SSRI med. 03/22 - His sodium is now normalized at 137. Continue current regimen, monitor. (6) Hypertension Status: Chronic Problem Specific Plan: Monitor Clinically Problem Text: 03/25 - Should not restart thiazide in the future due to his hyponatremia. 03/23 - Amlodipine was started yesterday. 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 Na stable at 137. Nephrology following. Nephrology notes that can continue current dose of the fluvoxamine for now but if Na levels decrease again, may need to switch to non-SSRI med. (13) History of OCD (obsessive compulsive disorder) Status: Chronic Problem Specific Plan: Monitor Clinically Problem Text: 03/23 - Pt is on Fluvoxamine which is an SSRI, which could potentially cause SIADH. Na stable at 137. Nephrology following. Nephrology notes that can continue current dose of the fluvoxamine for now but if Na levels decrease again, may need to switch to non-SSRI med. (14) Hyperlipidemia Status: Chronic Plan/VTE VTE Prophylaxis Ordered?: Yes (teds and sequentials) VTE Exclusion Mechanical Proph: Other VS, I&O, 24H, Fishbone Vital Signs/I&O Vital Signs Date Time Temp Pulse Resp B/P (MAP) Pulse Ox O2 Delivery O2 Flow Rate FiO2 03/25/17 11:16 Room Air 03/25/17 10:00 98.4 95 17 126/75 (92) 96 03/19/17 10:00 2.0 I&O- Last 24 Hours up to 6 AM 03/26/17 06:00 Intake Total 0 ml Output Total 0 ml Balance 0 ml Laboratory Data 24H LABS Laboratory Tests 2 03/25/17 06:07: Immature Granulocyte % (Auto) 0.5H, White Blood Count 13.1H, Red Blood Count 3.73L, Hemoglobin 12.6L, Hematocrit 37.4L, Mean Corpuscular Volume 100.3H, Mean Corpuscular Hemoglobin 33.8H, Mean Corpuscular Hemoglobin Concent 33.7, Red Cell Distribution Width 15.5H, Platelet Count 257, Neutrophils (%) (Auto) 79.5H , Lymphocytes (%) (Auto) 13.9L, Monocytes (%) (Auto) 5.7H, Eosinophils (%) (Auto ) 0.2, Basophils (%) (Auto) 0.2, Neutrophils # (Auto) 10.4H, Lymphocytes # (Auto ) 1.8, Monocytes # (Auto) 0.8, Eosinophils # (Auto) 0.0, Basophils # (Auto) 0.0 , Immature Granulocyte # (Auto) 0.1H, Nucleated Red Blood Cells % (auto) 0.0, Prothrombin Time 18.6H, Prothromb Time International Ratio 1.51, Anion Gap 7L, Glomerular Filtration Rate > 60.0, Blood Urea Nitrogen 13, Creatinine 0.75, Sodium Level 139, Potassium Level 3.8, Chloride Level 104, Carbon Dioxide Level 28, Calcium Level 8.7, Aspartate Amino Transf (AST/SGOT) 147H, Alanine Aminotransferase (ALT/SGPT) 125H, Alkaline Phosphatase 170H, Total Bilirubin 6.5H, Total Protein 6.6, Albumin 2.8L, Ammonia 50H, Albumin/Globulin Ratio 0.74L CBC/BMP Laboratory Tests 03/25/17 06:07 Red Blood Count 3.73 L, Mean Corpuscular Volume 100.3 H, Mean Corpuscular Hemoglobin 33.8 H, Mean Corpuscular Hemoglobin Concent 33.7, Red Cell Distribution Width 15.5 H, Neutrophils (%) (Auto) 79.5 H, Lymphocytes (%) (Auto ) 13.9 L, Monocytes (%) (Auto) 5.7 H, Eosinophils (%) (Auto) 0.2, Basophils (%) (Auto) 0.2, Neutrophils # (Auto) 10.4 H, Lymphocytes # (Auto) 1.8, Monocytes # ( Auto) 0.8, Eosinophils # (Auto) 0.0, Basophils # (Auto) 0.0, Calcium Level 8.7, Aspartate Amino Transf (AST/SGOT) 147 H, Alanine Aminotransferase (ALT/SGPT) 125 H, Alkaline Phosphatase 170 H, Total Bilirubin 6.5 H, Total Protein 6.6, Albumin 2.8 L Microbiology Microbiology 03/17/17 Blood Culture - Final, Complete NO GROWTH AFTER 5 DAYS 03/17/17 Blood Culture - Final, Complete NO GROWTH AFTER 5 DAYS Favian Mcginnis Mar 25, 2017 12:30
[2017-03-25] MEDS ORDERED: PHYTONADIONE 5 MG TAB PO ONE (13:45)
[2017-03-25 14:03] VITALS: BP 132/66
[2017-03-25 16:23] LABS: ALBUMIN/GLOBULIN RATIO 0.77 (1.00-1.93); BILIRUBIN,DIRECT 4.9 MG/DL (0.0-0.2); TOTAL PROTEIN 6.9 GM/DL (6.4-8.2)
[2017-03-25 16:48] LABS: SPEC. GRAVITY BODY FLUIDS 1.023 (NOT ESTABLISHED)
[2017-03-25 17:10] LABS: LDH, BODY FLUID 117 U/L (NOT ESTABLISHED); TOTAL PROTEIN, BODY FLUID 3.3 G/DL (NOT ESTABLISHED)
[2017-03-25 17:18] LABS: BF MONONUCLEAR CELL % 86.6 % (0-0); BF POLYMORPHONUCLEAR CELL % 13.4 CELLS/uL (0-0); RBC BODY FLUID < 2000.000 CELLS/uL (<2000)
[2017-03-25 17:22] LABS: BF DIFF IF INDICATED? YES (NO)
[2017-03-25 21:25] LABS: CC BF DIFF EXAM UNSPUN
[2017-03-25 22:00] VITALS: BP 133/68
[2017-03-26] MEDS: CEPHALEXIN 250 MG CAP PO SCH ×4 (00:18→17:37)
[2017-03-26 06:00] VITALS: BP 131/79
[2017-03-26] MEDS: LACTULOSE 20 GM/30 ML SYRUP UD PO SCH ×3 (06:01→22:01)
[2017-03-26 06:30] LABS: BASO % 0.1 % (0.0-1.0); EOS % 0.1 % (0.0-3.0); IMMATURE GRANULOCYTE % 0.4 % (0-0); MEAN CORPUSCULAR HEMOGLOBIN 33.3 pg (27.0-33.0); MEAN CORPUSCULAR HGB CONC 33.1 g/dl (32.0-36.5); MEAN CORPUSCULAR VOLUME 100.8 fl (80.0-96.0); MONO # 0.8 10^3/uL (0.0-0.8); MONO % 5.4 % (0.0-5.0); NEUTROPHILS # 11.2 10^3/uL (1.8-7.7); PLATELET COUNT, AUTOMATED 282 10^3/uL (150-450); RED CELL DISTRIBUTION WIDTH 15.3 % (11.5-14.5)
[2017-03-26 06:38] LABS: ALBUMIN 2.9 GM/DL (3.2-5.2); ALBUMIN/GLOBULIN RATIO 0.78 (1.00-1.93); ALKALINE PHOSPHATASE 184 U/L (45-117); ALT/SGPT 154 U/L (12-78); ANION GAP 9 MEQ/L (8-16); AST/SGOT 149 U/L (15-37); BILIRUBIN,TOTAL 5.1 MG/DL (0.2-1.0); BLOOD UREA NITROGEN 14 MG/DL (7-18); CALCIUM LEVEL 8.5 MG/DL (8.5-10.1); CARBON DIOXIDE LEVEL 27 MEQ/L (21-32); CHLORIDE LEVEL 105 MEQ/L (98-107); CREATININE FOR GFR 0.67 MG/DL (0.70-1.30); GLOMERULAR FILTRATION RATE > 60.0 (>60); GLUCOSE, FASTING 96 MG/DL (70-105); POTASSIUM SERUM 3.7 MEQ/L (3.5-5.1); SODIUM LEVEL 141 MEQ/L (136-145); TOTAL PROTEIN 6.6 GM/DL (6.4-8.2)
[2017-03-26] MEDS: MULTIVITAMINS/MINERALS THERAP 1 TAB PO SCH (09:37)
[2017-03-26] MEDS: ENOXAPARIN 40 MG/0.4 ML SYRINGE (J1650) SC SCH (09:37)
[2017-03-26] MEDS: THIAMINE 100 MG TAB PO SCH (09:37)
[2017-03-26] MEDS: FOLIC ACID 1 MG TAB PO SCH (09:37)
[2017-03-26] MEDS: fluvoxaMINE MALEATE 50 MG TAB PO SCH ×2 (09:37→20:00)
[2017-03-26] MEDS: amLODIPine 5 MG TAB PO SCH (09:37)
[2017-03-26] MEDS: prednisoLONE (PRELONE) 15MG/5ML SYRUP UDC PO SCH (09:38)
[2017-03-26] MEDS: ACETAMINOPHEN TAB 650MG DOSE (2X325MG) PO PRN ×2 (13:22→19:57)
[2017-03-26 14:00] VITALS: BP 131/63
--- NOTE | 2017-03-26 16:06 | IPN ---
DATE: 03/26/2017 Roland looks a little better. His laboratories are improved as well. Case was discussed with Dr. Reynolds. Appreciate his input. Roland has some abdominal pain at the site of the paracentesis, otherwise unchanged status. PHYSICAL EXAMINATION: Blood pressure 131/63, pulse 86, respiratory rate 18, 96% oxygen saturation, afebrile. He is still jaundices, alert, conversant. No tremor. LUNGS: Clear. HEART: Regular rate and rhythm. ABDOMEN: Soft. He has ascites, tender on the right side. Trace peripheral edema. LABORATORY DATA: White count is 14,000 on steroids, hemoglobin 13.2, platelets 282. INR is pending for tomorrow (I gave him a dose of vitamin K yesterday, essentially to prove that his coagulopathy is not secondary to malnutrition/vitamin K deficiency, if it is due to his cirrhosis, he will not be vitamin K responsive). Bilirubin is down to 5.1. Ammonia is 42. The albumin concentration of his ascites was 1.7 grams, serum albumin was 3.0, serum ascites albumin gradient was 1.3 strongly suggesting portal hypertension as the cause of his ascites. IMPRESSION: 1. Alcoholic hepatitis with ascites. He is on prednisolone. The case was discussed with Dr. Reynolds. He agrees with changing to prednisone which would be more readily available than the prednisolone which is only available as a syrup. He will continue 40 mg daily. He recommends that he stay on this dose for a month and then the dose can be weaned. He will be seeing the patient as an outpatient and can monitor the weaning. 2. Hepatic encephalopathy. He is on lactulose. We have increased the frequency of this. Ammonia is down a bit. Mental status has improved. 3. Ascites, status post paracentesis. He is on Keflex for prophylaxis of spontaneous bacterial peritonitis. 4. Hyponatremia. This is improving. 5. History of obsessive-compulsive disorder (OCD). He is on Luvox as an outpatient. We are continuing this while he is here. 6. Alcoholism. Still waiting for a patient and family services (PFS) note about this. I think the patient would benefit from an inpatient alcohol rehabilitation program. We will await further input. He is on thiamine for now. 7. Hypertension. Continue his amlodipine 5 mg daily. 8. Hyperlipidemia. Statins have been avoided due to the cirrhosis. He will probably be ready for discharge by [facility].
--- NOTE | 2017-03-26 17:27 | REP ---
Ultrasound-guided paracentesis The procedure was performed under the direct supervision of Dr. Wooten. The risks and benefits of the procedure were explained to the patient and informed consent was obtained. The largest pocket of fluid was localized in the right lower quadrant using ultrasound guidance. The skin was prepped and draped in a sterile fashion. 1% lidocaine was used as a local anesthetic. Using ultrasound guidance and 8-Upper Sorbian multi side-hole catheter was inserted using trocar technique. 800 ml of dark bruna fluid was withdrawn and sent to the lab. The the patient tolerated the procedure well and there were no immediate complications. After the appropriate amount of monitored convalescence the patient was discharged from the department. Reviewed by DAVIE Lamar 03/25/2017 04:32 PSigned by Jose Luis Wooten MD 03/26/2017 05:18 P
[2017-03-26 22:00] VITALS: BP 125/82
[2017-03-27] MEDS: LACTULOSE 20 GM/30 ML SYRUP UD PO SCH ×4 (05:47→20:59)
[2017-03-27] MEDS: CEPHALEXIN 250 MG CAP PO SCH ×4 (05:47→17:21)
[2017-03-27 06:00] VITALS: BP 148/82
[2017-03-27 06:03] LABS: BASO % 0.1 % (0.0-1.0); EOS % 0.1 % (0.0-3.0); IMMATURE GRANULOCYTE % 0.5 % (0-0); LYMPH % 13.8 % (24.0-44.0); MEAN CORPUSCULAR HGB CONC 33.5 g/dl (32.0-36.5); MEAN CORPUSCULAR VOLUME 101.4 fl (80.0-96.0); MONO # 0.8 10^3/uL (0.0-0.8); MONO % 5.4 % (0.0-5.0); NEUTROPHILS # 11.6 10^3/uL (1.8-7.7); NEUTROPHILS % 80.1 % (36.0-66.0); PLATELET COUNT, AUTOMATED 300 10^3/uL (150-450); WHITE BLOOD COUNT 14.5 10^3/uL (4.0-10.0)
[2017-03-27 06:13] LABS: INR 1.3
[2017-03-27 06:41] LABS: ALBUMIN 2.8 GM/DL (3.2-5.2); ALBUMIN/GLOBULIN RATIO 0.85 (1.00-1.93); ALKALINE PHOSPHATASE 151 U/L (45-117); ALT/SGPT 155 U/L (12-78); ANION GAP 8 MEQ/L (8-16); AST/SGOT 141 U/L (15-37); BILIRUBIN,TOTAL 4.6 MG/DL (0.2-1.0); BLOOD UREA NITROGEN 14 MG/DL (7-18); CALCIUM LEVEL 8.2 MG/DL (8.5-10.1); CARBON DIOXIDE LEVEL 26 MEQ/L (21-32); CHLORIDE LEVEL 106 MEQ/L (98-107); CREATININE FOR GFR 0.65 MG/DL (0.70-1.30); GLOMERULAR FILTRATION RATE > 60.0 (>60); GLUCOSE, FASTING 86 MG/DL (70-105); POTASSIUM SERUM 3.8 MEQ/L (3.5-5.1); SODIUM LEVEL 140 MEQ/L (136-145); TOTAL PROTEIN 6.1 GM/DL (6.4-8.2)
[2017-03-27] MEDS: amLODIPine 5 MG TAB PO SCH ×2 (09:00→09:36)
[2017-03-27] MEDS: MULTIVITAMINS/MINERALS THERAP 1 TAB PO SCH (09:35)
[2017-03-27] MEDS: predniSONE 20 MG TAB PO SCH (09:35)
[2017-03-27] MEDS: THIAMINE 100 MG TAB PO SCH (09:35)
[2017-03-27] MEDS: fluvoxaMINE MALEATE 50 MG TAB PO SCH ×2 (09:35→20:58)
[2017-03-27] MEDS: ENOXAPARIN 40 MG/0.4 ML SYRINGE (J1650) SC SCH (09:36)
[2017-03-27] MEDS: FOLIC ACID 1 MG TAB PO SCH (09:36)
[2017-03-27 14:00] VITALS: BP 131/77
--- NOTE | 2017-03-27 20:37 | IPN ---
DATE: 03/27/2017 SUBJECTIVE: Roland was see [facility], feeling well. Abdominal pain from paracentesis is better. Oral intake is good. PHYSICAL EXAMINATION: 139/77 , pulse of 80, respiratory rate 18, 96% oxygen saturation. GENERAL: Alert, conversant, jaundice is decreased. LUNGS: Clear. HEART: Regular rate and rhythm. ABDOMEN: Soft. He has ascites, less tender than yesterday. EXTREMITIES: No peripheral edema. LABORATORY DATA: Reviewed. White count 14.5 on steroids, hemoglobin 12.5, platelets 300. INR was 1.3 (I gave him vitamin K on 03/25 with repeat INR, anticipating no significant response, thus confirming the elevated INR from cirrhosis and not due to vitamin K deficiency in his diet.) His bilirubin is down to 4.6. AST, ALT, alkaline phosphatase, all down from previously. Ammonia is 55. Review of the nursing records indicates him only having 1-2 stools per day on (his current Lactulose). IMPRESSION: 1. Alcoholic hepatitis. He is on prednisone. Plan is to continue 40 mg daily for a month. Then Dr. Reynolds plans to wean this. 2. Hepatic encephalopathy, insufficient response to Lactulose. We will increase the dose and frequency, aiming for 3-4 loose bowel movements per day. 3. Ascites, status post paracentesis, on Keflex for prophylaxis of spontaneous bacterial peritonitis. Serum-ascites albumin gradient (SAAG) ratio suggested portal hypertension as a cause. Pathology was negative for malignancy as expected. 4. Hyponatremia. This has resolved. 5. Hepatitis A is positive. Unfortunately, they just kang a total hepatitis A and not IgM/IgG. I suspect it is IgG, but have to order this to confirm it. 6. History of obsessive compulsive disorder (OCD). On Luvox which we are continuing. 7. Alcoholism. Still awaiting for patient and family services (PFS) input on possibility of inpatient alcohol program. No recent notes from PFS. 8. Hypertension. Well controlled with current dose of amlodipine.
[2017-03-27 21:05] VITALS: BP 140/79
[2017-03-27] MEDS: ACETAMINOPHEN TAB 650MG DOSE (2X325MG) PO PRN (22:26)
[2017-03-28] MEDS: CEPHALEXIN 250 MG CAP PO SCH ×4 (00:12→17:16)
--- NOTE | 2017-03-28 00:13 | IPNPDOC ---
Date Seen The patient was seen on 03/27/17 at 5:00 PM Progress Note Interval History: Patient underwent USG guided paracentesis by IR and fluid analysis reviewed. No evidence of SBP. Patient currently denies any new symptoms and says he is feeling much better. Mental status - AAO x 3. Tolerating diet well. Paracentesis site pain is improving.. Exam: Vitals: reviewed. Afebrile. General: AAO x 3, Minimal tremors but much improved from past. Slight imbalance noted. HEENT: scleral icterus improving. No pallor. Abdomen: Obese, unable to appreciate shifting dullness, No fluid thrill, Normal bowel sounds. Extremities: no pedal edema. Labs: Paracentesis fluid anslysis reviewed - No SBP. Fluid protein - > 2.5 SAAG > 1.1 LFTs - show significant improvement in LFTs. Hepatitis A and C are immune. Impression: - H/o heavy alcohol use and Acute alcoholic hepatitis. ( DF 34). On steroids. - Abnormal LFTs - likely from alcoholic hepatitis. - Portal hypertensive ascites with high protein. Likely from Liver cirrhosis ( needs further evaluation). - Macrocytic anemia Recommendations: - Patient educated about the test results, possible differential diagnoses and All questions answered. - Diet as tolerated. - Continue Lactulose daily as need to get 1- 2 lose stools per day. If hepatic encephalopathy is not well controlled can add rifaximin 550 mg twice daily. - Continue antibiotics for now, until patient is discharged. - Continue steroids for 28 days and taper the dose after that. - Monitor LFTs and CBC... ( will obtain folate and B 12 levels once). - Avoid hepatotoxic medications. - Continue thiamine and folate and Multivitamin supplements daily. - Patient educated about cessation of alcohol. - Low salt diet (2gm sodium diet). Daily weights. - Due to recent alcohol use would not be candidate for liver transplant referral. - Upon discharge patient need to follow up in GI clinic in 1- 2 weeks. ( please call [phone] for appointment). - Elective EGD as out patient and For ascites - will start on diuretics in out patient visit (as currently patient had acute HE).. Plan of care discussed with patient his family and primary team.Patient verbalized understanding. LIZBETH CORLEY MD Mar 28, 2017 00:07
[2017-03-28 05:02] VITALS: BP 153/93
[2017-03-28 06:00] LABS: MEAN CORPUSCULAR HEMOGLOBIN 33.8 pg (27.0-33.0); MEAN CORPUSCULAR HGB CONC 33.2 g/dl (32.0-36.5); MEAN CORPUSCULAR VOLUME 101.6 fl (80.0-96.0); RED CELL DISTRIBUTION WIDTH 14.9 % (11.5-14.5)
[2017-03-28 06:25] LABS: ALBUMIN 2.7 GM/DL (3.2-5.2); ALBUMIN/GLOBULIN RATIO 0.68 (1.00-1.93); ALKALINE PHOSPHATASE 154 U/L (45-117); ALT/SGPT 188 U/L (12-78); ANION GAP 6 MEQ/L (8-16); AST/SGOT 160 U/L (15-37); BILIRUBIN,TOTAL 3.8 MG/DL (0.2-1.0); BLOOD UREA NITROGEN 14 MG/DL (7-18); CALCIUM LEVEL 8.6 MG/DL (8.5-10.1); CARBON DIOXIDE LEVEL 27 MEQ/L (21-32); CHLORIDE LEVEL 107 MEQ/L (98-107); CREATININE FOR GFR 0.73 MG/DL (0.70-1.30); GLOMERULAR FILTRATION RATE > 60.0 (>60); GLUCOSE, FASTING 91 MG/DL (70-105); POTASSIUM SERUM 4.2 MEQ/L (3.5-5.1); SODIUM LEVEL 140 MEQ/L (136-145); TOTAL PROTEIN 6.7 GM/DL (6.4-8.2)
[2017-03-28] MEDS: MULTIVITAMINS/MINERALS THERAP 1 TAB PO SCH (09:40)
[2017-03-28] MEDS: predniSONE 20 MG TAB PO SCH (09:40)
[2017-03-28] MEDS: THIAMINE 100 MG TAB PO SCH (09:41)
[2017-03-28] MEDS: FOLIC ACID 1 MG TAB PO SCH (09:41)
[2017-03-28] MEDS: amLODIPine 5 MG TAB PO SCH (09:41)
[2017-03-28] MEDS: fluvoxaMINE MALEATE 50 MG TAB PO SCH ×2 (09:41→20:41)
[2017-03-28] MEDS: LACTULOSE 20 GM/30 ML SYRUP UD PO SCH ×4 (09:42→20:41)
[2017-03-28] MEDS: ENOXAPARIN 40 MG/0.4 ML SYRINGE (J1650) SC SCH (09:42)
[2017-03-28] MEDS ORDERED: IBUPROFEN 600 MG TAB PO PRN (10:00)
--- NOTE | 2017-03-28 11:25 | IPNPDOC ---
Subjective Date Seen The patient was seen on 03/28/17. Subjective Chief Complaint/HPI The patient is a 41-year-old male admitted with a reason for visit of Hepatic Encephalopathy;Hyponatremia. Events since last encounter Roland is sleepy this morning. He states that he slept on his hip wrong last night, so it's feeling a little painful this morning. He says that he is not a morning person. He denies any issues overnight, seizures, or confusion. He states that besides his hip, the only other place he hurts is his paracentesis site, located in the right lower quadrant. General: Reports: Normal Appetite, Denies: Malaise Constitutional: Denies: Fever, Weakness ENT: Denies: Head Aches Skin: Denies: Rash, Lesions, Jaundice Gastrointestinal: Reports: Diarrhea (secondary to lactulose), Denies: Nausea, Abdominal Pain Psych: Reports: Mood Normal Objective Physical Examination General Exam: Positive: Alert, Cooperative, No Acute Distress (Patient was sleeping, but aroused easily and was cooperative with me) Eye Exam: Positive: Sclera icteric ENT Exam: Positive: Atraumatic, Mucous membr. moist/pink Chest Exam: Positive: Clear to auscultation, Normal air movement Heart Exam: Positive: Rate Normal, Regular Rhythm, Normal S1, Normal S2 Abdomen Exam: Positive: Normal bowel sounds, Soft, Other (Abdomen is protuberant, paracentesis site is red, but without surrounding erythema or drainage), Negative: Tenderness Extremity Exam: Negative: Edema Skin Exam: Negative: Breakdown Neuro Exam: Positive: Normal Speech Psych Exam: Positive: Mood NL Assessment /Plan Problems (1) Alcoholic hepatitis with ascites Status: Acute Problem Text: 03/28: Lactulose was increased yesterday to 45 mL QID with the goal of 3-4 loose bowel movements per day. Since yesterday the patient has had 4 bowel movements. No ammonia has been ordered today, so I have ordered one for tomorrow. Patient is alert and oriented x3, calm and cooperative. He is on prednisone 40 mg daily, and Keflex 250 mg Q6 for SBP prophylaxis. As a side note , he had been ordered 650 mg acetaminophen q6 PRN pain/fever. As he is admitted for alcoholic hepatitis, and his LFTs are higher than yesterday, I have D/C'ed this and ordered Motrin 600 mg Q6 PRN pain/fever instead. Cr 0.73, BUN 14 03/25 - Ammonia level 50 (53 yesterday). On Lactulose 30 mls TID. May consider adding Rifaximin. He is on prednisolone 40 mg daily. He is on Keflex for spontaneous bacterial peritonitis prophylaxis. Abd U/S: Moderate diffuse ascites in the right side of the abdomen. Minimal ascites is seen on the left side of the abdomen. GI was consulted and pt was seen by Dr Reynolds who ordered autoimmune hep panel and hep A. He discussed paracentesis and fluid be sent for c&s, gram stain, total protein, albumin, cell count, cytology, LDH. Discuss with attending. 03/23 - Ammonia level up to 55 today (50 yesterday). On lactulose 30 ml BID. Pt reports 2 loose stools daily. Increase lactulose to TID. May consider adding Xifaxan. Discuss with attending. Pt is on prednisone. 03/22 - His ammonia was a little worse today than it has been. His mental status seemed about the same to me from yesterday to today, but this is not good in that doesn't seem to be improving. Meld score upon admission is 28.6 which has an estimated 19.6% 3 month mortality. His Maddrey's discriminant function score is 34.2, which is greater than 32, therefore steroids are indicated for liver failure, he'll be started on prednisolone 40 mg by mouth daily. Asked whether that he was willing to take this for an extended period time and both he and his verbalized that he is. (2) Serum ammonia increased Status: Acute Response to Treatment: Improving Problem Text: 03/28: no ammonia ordered for today. Ammonia from 03/27 was 55. I have ordered ammonia for tomorrow. 03/25 - Ammonia level 50 (53 yesterday). On Lactulose 30 mls TID. May consider adding Rifaximin. He is on prednisolone 40 mg daily. He is on Keflex for spontaneous bacterial peritonitis prophylaxis. Abd U/S: Moderate diffuse ascites in the right side of the abdomen. Minimal ascites is seen on the left side of the abdomen. GI was consulted and pt was seen by Dr Reynolds who ordered autoimmune hep panel and hep A. He discussed paracentesis and fluid be sent for c&s, gram stain, total protein, albumin, cell count, cytology, LDH. Discuss with attending. 03/23 - Ammonia level up to 55 today (50 yesterday). On lactulose 30 ml BID. Pt reports 2 loose stools daily. Increase lactulose to TID. May consider adding Xifaxan. Discuss with attending. 03/22 - He continues on lactulose and reports regular bowel movements. I'll recheck his ammonia level tomorrow. If his ammonia goes up again we should either increase his lactulose frequency or consider adding rifaximin. (3) Hepatic encephalopathy Status: Acute Response to Treatment: Improving Problem Text: Patient is alert and oriented x3, calm and cooperative. Nursing has had no complaints. Encephalopathic behavior seems to have resolved. Patient is OOB with observation, I have encouraged him to ambulated as much as safely possible, and have instructed nursing to supervise him should he require assistance. (4) Alcoholism Status: Chronic Problem Text: 03/28: at bedside, patient admits his alcohol used almost killed him this time. He states that he is determined never to "touch the stuff" again. He states that he and his enjoy watching the food network, but whenever an alcoholic beverage is being used as an ingredient, he has to look away because the thought of it makes him sick. 03/25 - Dr Gil had discussion with pt and father on 03/24/17, and discussed inpt alcohol rehab. I suspect there is not true acknowledgment by either the patient or his regarding how much drinking he's doing. He denies any withdrawal symptoms but did note a separate time that his shaking is much better. I think he may be undergoing some withdraws but scared to use Ativan because sedated him for so long. (5) Hyponatremia Status: Resolved Problem Text: 03/28: Na 140, resolved 03/25 - Na 139. Nephrology has been following. Pt is on SSRI for OCD and nephrology feels that it is ok to continue that at present since his Na has improved. 03/23 - Na stable at 137. Nephrology following. Pt is on Fluvoxamine which is an SSRI, which could potentially cause SIADH. Nephrology notes that can continue current dose of the fluvoxamine for now but if Na levels decrease again , may need to switch to non-SSRI med. 03/22 - His sodium is now normalized at 137. Continue current regimen, monitor. (6) Hypertension Status: Chronic Problem Specific Plan: Monitor Clinically Problem Text: 03/28: BP 153/93, continue amlodipine 5 mg daily 03/25 - Should not restart thiazide in the future due to his hyponatremia. 03/23 - Amlodipine was started yesterday. 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 Na stable at 137. Nephrology following. Nephrology notes that can continue current dose of the fluvoxamine for now but if Na levels decrease again, may need to switch to non-SSRI med. (13) History of OCD (obsessive compulsive disorder) Status: Chronic Problem Specific Plan: Monitor Clinically Problem Text: 03/23 - Pt is on Fluvoxamine which is an SSRI, which could potentially cause SIADH. Na stable at 137. Nephrology following. Nephrology notes that can continue current dose of the fluvoxamine for now but if Na levels decrease again, may need to switch to non-SSRI med. (14) Hyperlipidemia Status: Chronic Plan/VTE VTE Prophylaxis Ordered?: Yes (teds and sequentials) VTE Exclusion Mechanical Proph: Other Plan Family Medicine Attending Note: I was present on site to supervise Paula Martinez DO (PGY-1). We discussed the history and exam. I confirmed the jordan elements during my [id number] encounter with the patient. We conferred on the assessment and plan; I agree with the note as documented. I had a long talk today with Mr. Andrade about his alcohol use. I encouraged him to seek Alcoholics Anonymous or another 12-step program when he is discharged. The main thing that I see we are waiting on for his discharge at this point is his ammonia levels become a little more stable and his functional status to improve. I encouraged him to get up and walk around more in his own today. He has been doing this so far. Will monitor. Anticipate discharge early in the next week. 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) VS, I&O, 24H, Fishbone Vital Signs/I&O Vital Signs Date Time Temp Pulse Resp B/P (MAP) Pulse Ox O2 Delivery O2 Flow Rate FiO2 03/28/17 09:41 77 136/78 03/28/17 05:02 97.8 16 95 Room Air I&O- Last 24 Hours up to 6 AM 03/29/17 06:00 Intake Total 0 ml Output Total 150 ml Balance -150 ml Laboratory Data 24H LABS Laboratory Tests 2 03/27/17 16:04: 03/28/17 05:39: Anion Gap 6L, Glomerular Filtration Rate > 60.0, Blood Urea Nitrogen 14, Creatinine 0.73, Sodium Level 140, Potassium Level 4.2, Chloride Level 107, Carbon Dioxide Level 27, Calcium Level 8.6, Aspartate Amino Transf (AST/SGOT) 160H, Alanine Aminotransferase (ALT/SGPT) 188H, Alkaline Phosphatase 154H, Total Bilirubin 3.8H, Total Protein 6.7, Albumin 2.7L, Albumin/Globulin Ratio 0.68L CBC/BMP Laboratory Tests 03/28/17 05:39 Red Blood Count 3.64 L, Mean Corpuscular Volume 101.6 H, Mean Corpuscular Hemoglobin 33.8 H, Mean Corpuscular Hemoglobin Concent 33.2, Red Cell Distribution Width 14.9 H, Calcium Level 8.6, Aspartate Amino Transf (AST/SGOT) 160 H, Alanine Aminotransferase (ALT/SGPT) 188 H, Alkaline Phosphatase 154 H, Total Bilirubin 3.8 H, Total Protein 6.7, Albumin 2.7 L Microbiology Microbiology 03/25/17 Gram Stain - Final, Complete 03/25/17 Body Fluid Culture - Final, Complete PAULA MARTINEZ DO Mar 28, 2017 11:25 Reggie Junior MD Mar 28, 2017 22:49
[2017-03-28 14:00] VITALS: BP 120/73
[2017-03-28 22:00] VITALS: BP 121/69
[2017-03-29] MEDS: CEPHALEXIN 250 MG CAP PO SCH ×5 (00:06→23:32)
[2017-03-29] MEDS ORDERED: ACETAMINOPHEN TAB 650MG DOSE (2X325MG) PO PRN (00:15)
[2017-03-29 06:00] VITALS: BP 140/86
[2017-03-29 06:19] LABS: MEAN CORPUSCULAR HEMOGLOBIN 34.1 pg (27.0-33.0); MEAN CORPUSCULAR HGB CONC 33.9 g/dl (32.0-36.5); MEAN CORPUSCULAR VOLUME 100.5 fl (80.0-96.0); RED CELL DISTRIBUTION WIDTH 14.6 % (11.5-14.5); WHITE BLOOD COUNT 13.8 10^3/uL (4.0-10.0)
[2017-03-29 06:41] LABS: ALBUMIN 2.8 GM/DL (3.2-5.2); ALBUMIN/GLOBULIN RATIO 0.72 (1.00-1.93); ALKALINE PHOSPHATASE 162 U/L (45-117); ALT/SGPT 223 U/L (12-78); ANION GAP 7 MEQ/L (8-16); AST/SGOT 162 U/L (15-37); BILIRUBIN,TOTAL 3.4 MG/DL (0.2-1.0); BLOOD UREA NITROGEN 14 MG/DL (7-18); CALCIUM LEVEL 8.6 MG/DL (8.5-10.1); CARBON DIOXIDE LEVEL 26 MEQ/L (21-32); CHLORIDE LEVEL 107 MEQ/L (98-107); CREATININE FOR GFR 0.67 MG/DL (0.70-1.30); GLOMERULAR FILTRATION RATE > 60.0 (>60); GLUCOSE, FASTING 87 MG/DL (70-105); POTASSIUM SERUM 3.6 MEQ/L (3.5-5.1); SODIUM LEVEL 140 MEQ/L (136-145); TOTAL PROTEIN 6.7 GM/DL (6.4-8.2)
[2017-03-29] MEDS: fluvoxaMINE MALEATE 50 MG TAB PO SCH ×2 (09:27→20:32)
[2017-03-29] MEDS: ENOXAPARIN 40 MG/0.4 ML SYRINGE (J1650) SC SCH (09:27)
[2017-03-29] MEDS: LACTULOSE 20 GM/30 ML SYRUP UD PO SCH ×4 (09:27→20:32)
[2017-03-29] MEDS: predniSONE 20 MG TAB PO SCH (09:27)
[2017-03-29] MEDS: FOLIC ACID 1 MG TAB PO SCH (09:28)
[2017-03-29] MEDS: MULTIVITAMINS/MINERALS THERAP 1 TAB PO SCH (09:28)
[2017-03-29] MEDS: amLODIPine 5 MG TAB PO SCH (09:28)
[2017-03-29] MEDS: THIAMINE 100 MG TAB PO SCH (09:28)
--- NOTE | 2017-03-29 12:02 | IPNPDOC ---
Subjective Date Seen The patient was seen on 03/29/17. Subjective Chief Complaint/HPI The patient is a 41-year-old male admitted with a reason for visit of Hepatic Encephalopathy;Hyponatremia. Events since last encounter He reports that he would like to go home, stating that tomorrow is his birthday. Patient does not have any acute concerns today. General: Denies: Night Sweats Constitutional: Denies: Chills, Fever Pulmonary: Denies: Dyspnea Cardiovascular: Denies: Chest Pain Objective Physical Examination General Exam: Positive: Alert, Cooperative, No Acute Distress (Patient was sleeping, but aroused easily and was cooperative with me) Chest Exam: Positive: Clear to auscultation, Normal air movement, Negative: Rales, Rhonchi, Wheezing, Diminished Heart Exam: Positive: Rate Normal, Regular Rhythm, Normal S1, Normal S2, Negative: Gallops, Murmurs, Rubs Abdomen Exam: Positive: Normal bowel sounds, Soft, Other (abdomen diffusely distended), Negative: Tenderness Extremity Exam: Negative: Edema Neuro Exam: Positive: Normal Speech Assessment /Plan Assessment 41-year-old male admitted with alcoholic hepatitis, doing well from a hepatic standpoint, who requires further observation due to risk of hypokalemia Problems (1) Alcoholic hepatitis with ascites Status: Acute Problem Text: 03/29: Patient will continue on current lactulose dose 45 mL 4 times a day, his potassium did drop from 4.2 yesterday to 3.6 today. This is likely secondary to increased frequency of bowel movements secondary to lactulose. Due to risk for him further drop in his potassium and becoming hypokalemic we will add 20 meqs of twice daily potassium chloride. We will repeat BMP tomorrow, we will also check magnesium level tomorrow. 03/28: Lactulose was increased yesterday to 45 mL QID with the goal of 3-4 loose bowel movements per day. Since yesterday the patient has had 4 bowel movements. No ammonia has been ordered today, so I have ordered one for tomorrow. Patient is alert and oriented x3, calm and cooperative. He is on prednisone 40 mg daily , and Keflex 250 mg Q6 for SBP prophylaxis. As a side note, he had been ordered 650 mg acetaminophen q6 PRN pain/fever. As he is admitted for alcoholic hepatitis, and his LFTs are higher than yesterday, I have D/C'ed this and ordered Motrin 600 mg Q6 PRN pain/fever instead. Cr 0.73, BUN 14 03/25 - Ammonia level 50 (53 yesterday). On Lactulose 30 mls TID. May consider adding Rifaximin. He is on prednisolone 40 mg daily. He is on Keflex for spontaneous bacterial peritonitis prophylaxis. Abd U/S: Moderate diffuse ascites in the right side of the abdomen. Minimal ascites is seen on the left side of the abdomen. GI was consulted and pt was seen by Dr Reynolds who ordered autoimmune hep panel and hep A. He discussed paracentesis and fluid be sent for c&s, gram stain, total protein, albumin, cell count, cytology, LDH. Discuss with attending. 03/23 - Ammonia level up to 55 today (50 yesterday). On lactulose 30 ml BID. Pt reports 2 loose stools daily. Increase lactulose to TID. May consider adding Xifaxan. Discuss with attending. Pt is on prednisone. 03/22 - His ammonia was a little worse today than it has been. His mental status seemed about the same to me from yesterday to today, but this is not good in that doesn't seem to be improving. Meld score upon admission is 28.6 which has an estimated 19.6% 3 month mortality. His Maddrey's discriminant function score is 34.2, which is greater than 32, therefore steroids are indicated for liver failure, he'll be started on prednisolone 40 mg by mouth daily. Asked whether that he was willing to take this for an extended period time and both he and his verbalized that he is. (2) Serum ammonia increased Status: Acute Response to Treatment: Improving Problem Text: 03/29: Improving, ammonia level 45, this is down from 55 on 03/27 03/28: no ammonia ordered for today. Ammonia from 03/27 was 55. I have ordered ammonia for tomorrow. 03/25 - Ammonia level 50 (53 yesterday). On Lactulose 30 mls TID. May consider adding Rifaximin. He is on prednisolone 40 mg daily. He is on Keflex for spontaneous bacterial peritonitis prophylaxis. Abd U/S: Moderate diffuse ascites in the right side of the abdomen. Minimal ascites is seen on the left side of the abdomen. GI was consulted and pt was seen by Dr Reynolds who ordered autoimmune hep panel and hep A. He discussed paracentesis and fluid be sent for c&s, gram stain, total protein, albumin, cell count, cytology, LDH. Discuss with attending. 03/23 - Ammonia level up to 55 today (50 yesterday). On lactulose 30 ml BID. Pt reports 2 loose stools daily. Increase lactulose to TID. May consider adding Xifaxan. Discuss with attending. 03/22 - He continues on lactulose and reports regular bowel movements. I'll recheck his ammonia level tomorrow. If his ammonia goes up again we should either increase his lactulose frequency or consider adding rifaximin. (3) Hepatic encephalopathy Status: Acute Response to Treatment: Improving Problem Text: 03/28: Patient is alert and oriented x3, calm and cooperative. Nursing has had no complaints. Encephalopathic behavior seems to have resolved. Patient is OOB with observation, I have encouraged him to ambulated as much as safely possible, and have instructed nursing to supervise him should he require assistance. (4) Alcoholism Status: Chronic Problem Text: 03/28: at bedside, patient admits his alcohol used almost killed him this time. He states that he is determined never to "touch the stuff" again. He states that he and his enjoy watching the food network, but whenever an alcoholic beverage is being used as an ingredient, he has to look away because the thought of it makes him sick. 03/25 - Dr Gil had discussion with pt and father on 03/24/17, and discussed inpt alcohol rehab. I suspect there is not true acknowledgment by either the patient or his regarding how much drinking he's doing. He denies any withdrawal symptoms but did note a separate time that his shaking is much better. I think he may be undergoing some withdraws but scared to use Ativan because sedated him for so long. (5) Hyponatremia Status: Resolved Problem Text: 03/28: Na 140, resolved 03/25 - Na 139. Nephrology has been following. Pt is on SSRI for OCD and nephrology feels that it is ok to continue that at present since his Na has improved. 03/23 - Na stable at 137. Nephrology following. Pt is on Fluvoxamine which is an SSRI, which could potentially cause SIADH. Nephrology notes that can continue current dose of the fluvoxamine for now but if Na levels decrease again , may need to switch to non-SSRI med. 03/22 - His sodium is now normalized at 137. Continue current regimen, monitor. (6) Hypertension Status: Chronic Problem Specific Plan: Monitor Clinically Problem Text: 03/29: Blood pressure stable. Continue amlodipine 5 mg daily 03/28: BP 153/93, continue amlodipine 5 mg daily 03/25 - Should not restart thiazide in the future due to his hyponatremia. 03/23 - Amlodipine was started yesterday. 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 Na stable at 137. Nephrology following. Nephrology notes that can continue current dose of the fluvoxamine for now but if Na levels decrease again, may need to switch to non-SSRI med. (13) History of OCD (obsessive compulsive disorder) Status: Chronic Problem Specific Plan: Monitor Clinically Problem Text: 03/23 - Pt is on Fluvoxamine which is an SSRI, which could potentially cause SIADH. Na stable at 137. Nephrology following. Nephrology notes that can continue current dose of the fluvoxamine for now but if Na levels decrease again, may need to switch to non-SSRI med. (14) Hyperlipidemia Status: Chronic Plan/VTE VTE Prophylaxis Ordered?: Yes (Lovenox 40 mg subcutaneously daily) VTE Exclusion Mechanical Proph: Other Plan Diagnostics: Repeat Labs in AM Family Medicine Attending Note: I was present on site to supervise Zhou Murray D.O. (PGY-3). We discussed the jordan elements of the history and examination. I independently evaluated the patient. I agree with his note as documented above. 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) Disposition Likely discharge tomorrow pending stable potassium VS, I&O, 24H, Fishbone Vital Signs/I&O Vital Signs Date Time Temp Pulse Resp B/P (MAP) Pulse Ox O2 Delivery O2 Flow Rate FiO2 03/29/17 09:28 77 138/82 03/29/17 06:00 97.2 18 92 Room Air I&O- Last 24 Hours up to 6 AM 03/30/17 06:00 Intake Total 600 ml Output Total 250 ml Balance 350 ml Laboratory Data 24H LABS Laboratory Tests 2 03/29/17 06:05: Anion Gap 7L, Glomerular Filtration Rate > 60.0, Blood Urea Nitrogen 14, Creatinine 0.67L, Sodium Level 140, Potassium Level 3.6, Chloride Level 107, Carbon Dioxide Level 26, Calcium Level 8.6, Aspartate Amino Transf (AST/SGOT) 162H, Alanine Aminotransferase (ALT/SGPT) 223H, Alkaline Phosphatase 162H, Total Bilirubin 3.4H, Total Protein 6.7, Albumin 2.8L, Ammonia 45H, Albumin/ Globulin Ratio 0.72L CBC/BMP Laboratory Tests 03/29/17 06:05 Red Blood Count 3.70 L, Mean Corpuscular Volume 100.5 H, Mean Corpuscular Hemoglobin 34.1 H, Mean Corpuscular Hemoglobin Concent 33.9, Red Cell Distribution Width 14.6 H, Calcium Level 8.6, Aspartate Amino Transf (AST/SGOT) 162 H, Alanine Aminotransferase (ALT/SGPT) 223 H, Alkaline Phosphatase 162 H, Total Bilirubin 3.4 H, Total Protein 6.7, Albumin 2.8 L Microbiology Microbiology 03/25/17 Gram Stain - Final, Complete 03/25/17 Body Fluid Culture - Final, Complete ZHOU MURRAY DO Mar 29, 2017 12:02 Reggie Junior MD Apr 14, 2017 21:14
[2017-03-29] MEDS: POTASSIUM CHLORIDE 10 MEQ SR TABLET PO SCH ×2 (12:44→20:32)
[2017-03-29 14:00] VITALS: BP 119/64
[2017-03-29 22:00] VITALS: BP 140/88
[2017-03-30] MEDS: CEPHALEXIN 250 MG CAP PO SCH ×2 (05:20→12:33)
[2017-03-30 06:00] VITALS: BP 141/88
[2017-03-30 06:24] LABS: MEAN CORPUSCULAR HEMOGLOBIN 33.3 pg (27.0-33.0); MEAN CORPUSCULAR HGB CONC 33.3 g/dl (32.0-36.5); RED CELL DISTRIBUTION WIDTH 14.6 % (11.5-14.5); WHITE BLOOD COUNT 14.4 10^3/uL (4.0-10.0)
[2017-03-30 06:49] LABS: ALBUMIN 2.9 GM/DL (3.2-5.2); ALBUMIN/GLOBULIN RATIO 0.73 (1.00-1.93); ALKALINE PHOSPHATASE 169 U/L (45-117); ALT/SGPT 246 U/L (12-78); ANION GAP 8 MEQ/L (8-16); AST/SGOT 157 U/L (15-37); BILIRUBIN,TOTAL 3.2 MG/DL (0.2-1.0); BLOOD UREA NITROGEN 13 MG/DL (7-18); CALCIUM LEVEL 8.9 MG/DL (8.5-10.1); CARBON DIOXIDE LEVEL 23 MEQ/L (21-32); CHLORIDE LEVEL 109 MEQ/L (98-107); CREATININE FOR GFR 0.64 MG/DL (0.70-1.30); GLOMERULAR FILTRATION RATE > 60.0 (>60); GLUCOSE, FASTING 83 MG/DL (70-105); MAGNESIUM LEVEL 2.5 MG/DL (1.8-2.4); POTASSIUM SERUM 3.8 MEQ/L (3.5-5.1); SODIUM LEVEL 140 MEQ/L (136-145); TOTAL PROTEIN 6.9 GM/DL (6.4-8.2)
[2017-03-30] MEDS ORDERED: POTA10CA PO (08:11)
[2017-03-30] MEDS ORDERED: PRED20TA PO (08:11)
[2017-03-30] MEDS ORDERED: THIA100TA PO (08:11)
[2017-03-30] MEDS ORDERED: FOLI1TAB4 PO (08:11)
[2017-03-30] MEDS ORDERED: LACT10SO3 PO (08:11)
[2017-03-30] MEDS: LACTULOSE 20 GM/30 ML SYRUP UD PO SCH ×2 (09:09→12:34)
[2017-03-30] MEDS: POTASSIUM CHLORIDE 10 MEQ SR TABLET PO SCH (09:10)
[2017-03-30] MEDS: THIAMINE 100 MG TAB PO SCH (09:10)
[2017-03-30 09:11] VITALS: BP 141/88
[2017-03-30] MEDS: amLODIPine 5 MG TAB PO SCH (09:11)
[2017-03-30] MEDS: predniSONE 20 MG TAB PO SCH (09:11)
[2017-03-30] MEDS: FOLIC ACID 1 MG TAB PO SCH (09:12)
[2017-03-30] MEDS: MULTIVITAMINS/MINERALS THERAP 1 TAB PO SCH (09:12)
[2017-03-30] MEDS: fluvoxaMINE MALEATE 50 MG TAB PO SCH (09:13)
[2017-03-30] MEDS: ENOXAPARIN 40 MG/0.4 ML SYRINGE (J1650) SC SCH (09:14)
[2017-03-30 10:19] LABS: FOLATE 12.3 NG/ML (>5.4)
--- NOTE | 2017-03-30 16:31 | DSES ---
DATE OF ADMISSION: 03/16/2017 DATE OF DISCHARGE: 03/30/2017 ATTENDING PHYSICIAN: Latosha Lujan MD PRIMARY CARE PROVIDER: Kulwant Gil MD HISTORY OF PRESENT ILLNESS: 42-year-old male with a known history of alcoholism presented accompanied by both his and father who provided his medical history at time of presentation. The patient was noted to have very slurred speech and difficulty answering any questions. The patient had been cutting back on his alcohol recently. He has a prior history of alcoholism and had resumed daily drinking. The patient had been found to have significant amount of difficulty dressing himself, speaking appropriately or behaving appropriately. subsequently brought him in to the emergency room. The patient was found to have alcoholic hepatitis with ascites. He presented with model for end-stage liver disease (MELD) score of 28.6 on admission, was subsequently placed on steroids. Also other admitting diagnoses include hyponatremia, hypokalemia, serum ammonia level elevated in the 100s, hepatic encephalopathy, hyperbilirubinemia, elevated INR. The patient was subsequently admitted to the ICU under Family [facility] Service, was aggressively fluid resuscitated. The patient was known to have some cellulitis of bilateral lower extremities, with advancing tenderness, induration and the warmth. He was placed on cefazolin. Blood cultures did prove negative. The patient did receive lorazepam as needed for agitation and alcohol withdrawal. However, the patient continued to prove some somnolence. The Ativan was stopped and patient continued to improve without signs of alcoholic withdrawal or seizure activity. The patient progressively improved with aggressive treatment, started to tolerate oral intake and was transitioned to medical-surgical floor. The patient has progressively improved throughout his hospitalization. He is status post gastroenterology consultation and paracentesis was obtained with an 800 mL fluid volume loss. Over the last several days the patient has continued to improve. He is getting out of bed and ambulating on his own. His ammonia level has stabilized into the 42 to 45 range. Today's is his birthday, he is anxious to go home. He states that he plans on remaining sober. He has the assistance of family, friends as well as his clergy that will assist with his continued sobriety. He is agreeable to continue on all medications and to proceed with further followups in outpatient setting. CONSULTATIONS: Include: 1. Dr. Reynolds, gastroenterology. 2. Dr. Santhosh Kyle, nephrology. IMAGING: Includes: 1. Head CT on admission, which was negative. 2. Chest x-ray on admission. 3. Abdominal ultrasound times two. 4. CT abdomen and pelvis on 03/18 which proved concerns for hepatocellular disease and ascites. PROCEDURES: 1. Paracentesis, ultrasound completed with interventional radiology, PAXTON Howe. PHYSICAL EXAMINATION: Vital signs are stable. He is afebrile. Blood pressure 141/88, oxygen saturation 96% on room air. Temperature 97.5, heart rate 68. LABS: Today, show a bilirubin level of 3.2, AST 157, ALT 246, alkaline phosphatase 169, creatinine 0.64, BUN 13. Most recent ammonia level is on 03/29 and 45. HEENT: Neck is supple without lymphadenopathy or jugular venous distention (JVD). CARDIOVASCULAR: Heart rate rhythm are regular. PULMONARY: Lungs are clear to auscultation. ABDOMEN: Soft, with some mild tenderness to the paracentesis site. Positive bowel sounds times all four quadrants. Bilateral lower extremities are without any erythema or edema. DISCHARGE DIAGNOSES: 1. Acute alcohol hepatic encephalopathy. 2. Acute alcoholic hepatitis with ascites. 3. Alcoholism. 4. Hyponatremia. 5. Cellulitis bilateral lower extremities. 6. Hyperbilirubinemia. 7. Alcoholic fatty liver. 8. Hypocalcemia. SECONDARY DIAGNOSES: Include: 1. Familial hypocalciuric hypercalcemia. 2. Anemia. 3. History of depression. 4. History of obsessive-compulsive disorder (OCD). 5. History of hyperlipidemia. 6. Hypertension. PLAN: The patient will be discharged to home, diet is as tolerated. Activity is as tolerated. He will followup with his primary care provider within the next week. He will followup with Dr. Reynolds, gastroenterology within the next one to two weeks. His recommendations are in his consult note. DISCHARGE MEDICATIONS: Are as follows: - folic acid 1 mg by mouth daily - lactulose 45 mL by mouth four times a day - potassium chloride 20 mEq by mouth twice a day - prednisone 40 mg by mouth daily - prednisone 20 mg tablets 2 by mouth daily for 14 days. The patient was given 50 tablets and will need new taper at the 14 day hermila. - thiamine 100 mg by mouth daily - amlodipine 5 mg by mouth daily - fluvoxamine 150 mg by mouth every a.m. - fluvoxamine 50 mg by mouth every p.m. MEDICATIONS THAT WERE HELD SECONDARY TO PATIENT'S LIVER AND RENAL DISEASE: Include - atorvastatin 10 mg by mouth at bedtime - chlorthalidone 25 mg by mouth daily - gabapentin 600 mg by mouth three times a day - meloxicam 15 mg by mouth daily as needed pain The patient is discharged in stable and satisfactory condition at time of discharge.
== END 2017-03-30 13:46 | disposition home or self-care (01) | DRG 280 ==
LOC: EDBD 17:50 → M ED 17:50 → M ED INP 20:53 → M ICU 22:39 → M MSPAV 03-20 10:47
PROVIDERS: ADMIT Internal Medicine Nephrology; ATTEND Family Medicine
PROC: 0W9G3ZZ Drainage of Peritoneal Cavity, Percutaneous Approach (ICD-10-PCS; principal; 2017-03-25)
DX: K70.11 Alcoholic hepatitis with ascites (principal); L03.115 Cellulitis of right lower limb; E87.1 Hypo-osmolality and hyponatremia; L03.116 Cellulitis of left lower limb; I10 Essential (primary) hypertension; D64.9 Anemia, unspecified; E83.52 Hypercalcemia; E83.51 Hypocalcemia; E78.5 Hyperlipidemia, unspecified; F10.20 Alcohol dependence, uncomplicated; F42.9 Obsessive-compulsive disorder, unspecified; Z79.899 Other long term (current) drug therapy; Z88.8 Allergy status to other drugs, medicaments and biological substances; K72.00 Acute and subacute hepatic failure without coma; K70.0 Alcoholic fatty liver

== ENCOUNTER → 2017-04-08 | Outpatient (CLI) | payer OTHER ==
[~2017-04-08] MED LIST: AMLO5TAB2 PO; ATOR1TAB19 PO; CHLO25TA PO; FLUV100T2 PO; FOLI1TAB4 PO; LACT10SO3 PO; MELO15TA4 PO; MELOPOW XX; NEUR600T PO; POTA10CA PO; PRED20TA PO; THIA100TA PO
[2017-04-08 12:07] LABS: MEAN CORPUSCULAR HEMOGLOBIN 33.5 pg (27.0-33.0); MEAN CORPUSCULAR HGB CONC 33.7 g/dl (32.0-36.5); MEAN CORPUSCULAR VOLUME 99.5 fl (80.0-96.0); RED CELL DISTRIBUTION WIDTH 13.2 % (11.5-14.5); WHITE BLOOD COUNT 16.2 10^3/uL (4.0-10.0)
[2017-04-08 12:47] LABS: ANION GAP 4 MEQ/L (8-16); BLOOD UREA NITROGEN 11 MG/DL (7-18); CARBON DIOXIDE LEVEL 30 MEQ/L (21-32); CHLORIDE LEVEL 105 MEQ/L (98-107); CREATININE FOR GFR 0.87 MG/DL (0.70-1.30); GLOMERULAR FILTRATION RATE > 60.0 (>60); GLUCOSE, FASTING 123 MG/DL (70-105); POTASSIUM SERUM 4.7 MEQ/L (3.5-5.1); SODIUM LEVEL 139 MEQ/L (136-145)
[2017-04-08 12:48] LABS: ALBUMIN 3.5 GM/DL (3.2-5.2); ALKALINE PHOSPHATASE 140 U/L (45-117); ALT/SGPT 193 U/L (12-78); AST/SGOT 80 U/L (15-37); BILIRUBIN,TOTAL 1.7 MG/DL (0.2-1.0); CALCIUM LEVEL 9.6 MG/DL (8.5-10.1)
== END ==
LOC: M LAB 11:35
PROVIDERS: ATTEND Family Medicine
DX: K70.31 Alcoholic cirrhosis of liver with ascites (principal)

== ENCOUNTER 2017-06-02 10:32 | Day surgery (SDC) | payer OTHER ==
[~2017-06-02] VITALS: Ht 165.1 cm; Wt 94.3 kg
[~2017-06-02 10:32] MED LIST changes: +LACT10SO29 PO; +LASI20TA PO; +MULT1TAB10 PO; +SPIR50TA2 PO
[2017-06-02 11:28] LABS: BASO # 0.1 10^3/uL (0.0-0.2); BASO % 0.6 % (0.0-1.0); EOS # 0.1 10^3/uL (0.0-0.50); EOS % 0.6 % (0.0-3.0); IMMATURE GRANULOCYTE % 0.2 % (0-0); LYMPH # 4.4 10^3/uL (1.5-4.5); LYMPH % 39.3 % (24.0-44.0); MEAN CORPUSCULAR HEMOGLOBIN 31.8 pg (27.0-33.0); MEAN CORPUSCULAR VOLUME 90.8 fl (80.0-96.0); MONO # 0.6 10^3/uL (0.0-0.8); MONO % 5.6 % (0.0-5.0); NEUTROPHILS % 53.7 % (36.0-66.0); PLATELET COUNT, AUTOMATED 407 10^3/uL (150-450); RED CELL DISTRIBUTION WIDTH 12.1 % (11.5-14.5); WHITE BLOOD COUNT 11.2 10^3/uL (4.0-10.0)
[2017-06-02] MEDS ORDERED: NS 1,000 ML IV SCH (11:45)
[2017-06-02 11:47] LABS: INR 1.06
[2017-06-02 11:54] LABS: ALBUMIN 4.1 GM/DL (3.2-5.2); ALBUMIN/GLOBULIN RATIO 0.93 (1.00-1.93); ALKALINE PHOSPHATASE 71 U/L (45-117); ALT/SGPT 29 U/L (12-78); AST/SGOT 22 U/L (7-37); BILIRUBIN,DIRECT 0.3 MG/DL (0.0-0.2); BILIRUBIN,TOTAL 1.6 MG/DL (0.2-1.0); BLOOD UREA NITROGEN 8 MG/DL (7-18); CREATININE FOR GFR 0.87 MG/DL (0.70-1.30); GLOMERULAR FILTRATION RATE > 60.0 (>60); POTASSIUM SERUM 3.7 MEQ/L (3.5-5.1); TOTAL PROTEIN 8.5 GM/DL (6.4-8.2)
[2017-06-02] MEDS ORDERED: PROPOFOL 200 MG/20 ML VIAL As Ordered ONE (12:46)
--- NOTE | 2017-06-02 12:58 | ROOR ---
Patient Name: Roland Andrade Procedure Date: 06/02/2017 12:33 PM Date of : 1975 Age: 42 Room: [facility] Gender: Male Note Status: Finalized Procedure: Upper GI endoscopy Indications: Cirrhosis rule out esophageal varices Providers: Clifford Reynolds MD Referring MD: Kulwant Gil MD Requesting Provider: Medicines: Monitored Anesthesia Care Complications: No immediate complications. Procedure: Pre-Anesthesia Assessment: - Prior to the procedure, a History and Physical was performed, and patient medications and allergies were reviewed. The patient is competent. The risks and benefits of the procedure and the sedation options and risks were discussed with the patient. All questions were answered and informed consent was obtained. Patient identification and proposed procedure were verified by the physician, the nurse and the anesthesiologist in the procedure room. Mental Status Examination: alert and oriented. Airway Examination: normal oropharyngeal airway and neck mobility. Respiratory Examination: clear to auscultation. CV Examination: normal. Prophylactic Antibiotics: The patient does not require prophylactic antibiotics. Prior Anticoagulants: The patient has taken no previous anticoagulant or antiplatelet agents. ASA Grade Assessment: III - A patient with severe systemic disease. After reviewing the risks and benefits, the patient was deemed in satisfactory condition to undergo the procedure. The anesthesia plan was to use monitored anesthesia care (MAC). Immediately prior to administration of medications, the patient was re-assessed for adequacy to receive sedatives. The heart rate, respiratory rate, oxygen saturations, blood pressure, adequacy of pulmonary ventilation, and response to care were monitored throughout the procedure. The physical status of the patient was re-assessed after the procedure. The Endoscope was introduced through the mouth, and advanced to the second part of duodenum. The upper GI endoscopy was accomplished without difficulty. The patient tolerated the procedure well. Findings: LA Grade B (one or more mucosal breaks greater than 5 mm, not extending between the tops of two mucosal folds) esophagitis with no bleeding was found at the gastroesophageal junction. Biopsies were taken with a cold forceps for histology. Verification of patient identification for the specimen was done by the physician and nurse using the patient's name, date and medical record number. Estimated blood loss was minimal. There is no endoscopic evidence of varices in the entire esophagus. Patchy moderate inflammation characterized by erosions, erythema and granularity was found in the gastric antrum. Biopsies were taken with a cold forceps for Helicobacter pylori testing. The duodenal bulb and second portion of the duodenum were normal. Impression: - LA Grade B reflux esophagitis. Biopsied. There is no endoscopic evidence of varices in the entire esophagus. - Gastritis. Biopsied. - Normal duodenal bulb and second portion of the duodenum. Recommendation: - Patient has a contact number available for emergencies. The signs and symptoms of potential delayed complications were discussed with the patient. Return to normal activities tomorrow. Written discharge instructions were provided to the patient. - Resume previous diet. - Continue present medications. 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 - Follow an antireflux regimen. - Repeat upper endoscopy in 3 months to check healing. - Return to GI clinic as previously scheduled on 06/11/2017 at 11:00 AM. - Return to primary care physician. Clifford Reynolds MD Clifford Reynolds MD 06/02/2017 12:58:15 PM This report has been signed electronically. Number of Addenda: 0 Note Initiated On: 06/02/2017 12:33 PM Estimated Blood Loss: Estimated blood loss was minimal.
[2017-06-02 13:26] VITALS: BP 166/86
[2017-06-03 11:29] LABS: HEPATITIS B SURFACE ANTIBODY NEGATIVE (POSITIVE)
[2017-06-05 08:11] LABS: ALT 25 IU/L (0-55); GGT 164 IU/L (0-65); HAPTOGLOBIN 180 mg/dL (34-200); NECROINFLAM SCORE 0.18 (0.00-0.17); NECROINFLAMM GRADE A0-A1 (.); TOTAL BILIRUBIN 1.5 mg/dL (0.0-1.2)
== END 2017-06-02 13:53 | disposition home or self-care (01) ==
LOC: M OPP 10:32
PROVIDERS: ATTEND Internal Medicine Gastroenterology
DX: K74.60 Unspecified cirrhosis of liver (principal); K21.0 Gastro-esophageal reflux disease with esophagitis; K29.70 Gastritis, unspecified, without bleeding; I10 Essential (primary) hypertension; E78.5 Hyperlipidemia, unspecified; E66.01 Morbid (severe) obesity due to excess calories; Z86.19 Personal history of other infectious and parasitic diseases; K72.90 Hepatic failure, unspecified without coma; F41.9 Anxiety disorder, unspecified; F42.9 Obsessive-compulsive disorder, unspecified; F32.9 Major depressive disorder, single episode, unspecified; F10.11 Alcohol abuse, in remission; G62.9 Polyneuropathy, unspecified; R26.89 Other abnormalities of gait and mobility; Z80.8 Family history of malignant neoplasm of other organs or systems; Z88.8 Allergy status to other drugs, medicaments and biological substances; Z79.899 Other long term (current) drug therapy

== ENCOUNTER → 2017-10-13 | Outpatient (REF) | payer OTHER ==
[2017-10-13 12:15] LABS: BASO # 0.1 10^3/uL (0.0-0.2); BASO % 0.8 % (0.0-1.0); EOS # 0.1 10^3/uL (0.0-0.50); EOS % 1.1 % (0.0-3.0); HEMATOCRIT 45.3 % (42.0-52.0); HEMOGLOBIN 15.5 g/dl (13.5-17.5); IMMATURE GRANULOCYTE % 0.3 % (0-3.0); LYMPH # 3.3 10^3/uL (1.5-4.5); LYMPH % 36.4 % (24.0-44.0); MEAN CORPUSCULAR HEMOGLOBIN 32.9 pg (27.0-33.0); MEAN CORPUSCULAR HGB CONC 34.2 g/dl (32.0-36.5); MEAN CORPUSCULAR VOLUME 96.2 fl (80.0-96.0); MONO # 0.8 10^3/uL (0.0-0.8); MONO % 8.6 % (0.0-5.0); NEUTROPHILS # 4.8 10^3/uL (1.8-7.7); NEUTROPHILS % 52.8 % (36.0-66.0); PLATELET COUNT, AUTOMATED 355 10^3/uL (150-450); RED BLOOD COUNT 4.71 10^6/uL (4.30-6.10); RED CELL DISTRIBUTION WIDTH 12.3 % (11.5-14.5); WHITE BLOOD COUNT 9.2 10^3/uL (4.0-10.0)
[2017-10-13 12:38] LABS: ALPHA FETOPROTEIN TUMOR QUANT 3.7 NG/ML (<8.1)
[2017-10-13 12:44] LABS: ALBUMIN 3.8 GM/DL (3.2-5.2); ALBUMIN/GLOBULIN RATIO 0.88 (1.00-1.93); ALKALINE PHOSPHATASE 91 U/L (45-117); ALT/SGPT 141 U/L (12-78); AST/SGOT 115 U/L (7-37); BILIRUBIN,DIRECT 0.6 MG/DL (0.0-0.2); BILIRUBIN,TOTAL 1.1 MG/DL (0.2-1.0); TOTAL PROTEIN 8.1 GM/DL (6.4-8.2)
== END ==
LOC: M LABDRAW1 10:09
DX: K70.11 Alcoholic hepatitis with ascites (principal)

== ENCOUNTER → 2017-10-14 | Outpatient (CLI) | payer OTHER | LOC: M RAD 07:54 | DX: K70.11 Alcoholic hepatitis with ascites (principal); K29.70 Gastritis, unspecified, without bleeding; K74.60 Unspecified cirrhosis of liver | CPT/HCPCS: 76700 ==

== ENCOUNTER → 2017-12-16 | Outpatient (REF) | payer OTHER ==
[2017-12-16 19:31] LABS: ALBUMIN 4.2 GM/DL (3.2-5.2); ALBUMIN/GLOBULIN RATIO 1.05 (1.00-1.93); ALKALINE PHOSPHATASE 106 U/L (45-117); ALT/SGPT 134 U/L (12-78); ANION GAP 7 MEQ/L (8-16); AST/SGOT 71 U/L (7-37); BLOOD UREA NITROGEN 16 MG/DL (7-18); CALCIUM LEVEL 10.1 MG/DL (8.5-10.1); CARBON DIOXIDE LEVEL 31 MEQ/L (21-32); CHLORIDE LEVEL 104 MEQ/L (98-107); CREATININE FOR GFR 0.99 MG/DL (0.70-1.30); GLOMERULAR FILTRATION RATE > 60.0 (>60); GLUCOSE, FASTING 82 MG/DL (70-100); POTASSIUM SERUM 4.8 MEQ/L (3.5-5.1); SODIUM LEVEL 142 MEQ/L (136-145); TOTAL PROTEIN 8.2 GM/DL (6.4-8.2)
[2017-12-16 19:32] LABS: AMMONIA 43 uMOL/L (<32)
[2017-12-16 19:39] LABS: HEMATOCRIT 47.1 % (42.0-52.0); HEMOGLOBIN 16.3 g/dl (13.5-17.5); MEAN CORPUSCULAR HEMOGLOBIN 31.7 pg (27.0-33.0); MEAN CORPUSCULAR HGB CONC 34.6 g/dl (32.0-36.5); MEAN CORPUSCULAR VOLUME 91.6 fl (80.0-96.0); PLATELET COUNT, AUTOMATED 307 10^3/uL (150-450); RED BLOOD COUNT 5.14 10^6/uL (4.30-6.10); RED CELL DISTRIBUTION WIDTH 11.9 % (11.5-14.5); WHITE BLOOD COUNT 11.1 10^3/uL (4.0-10.0)
== END ==
LOC: M SFHCADAM 15:54
DX: K72.90 Hepatic failure, unspecified without coma (principal)
CPT/HCPCS: 82140

== ENCOUNTER 2018-01-11 08:29 | Inpatient (IN) | payer OTHER ==
[2018-01-11] MEDS: NS 500 ML IV (09:45)
[2018-01-11] MEDS: ONDANSETRON 4MG/2ML VIAL (J2405) IV (09:45)
[2018-01-11 10:15] LABS: BASO % 0.4 % (0.0-1.0); HEMATOCRIT 45.1 % (42.0-52.0); IMMATURE GRANULOCYTE % 0.5 % (0-3.0); LYMPH % 12.5 % (24.0-44.0); MEAN CORPUSCULAR HEMOGLOBIN 32.3 pg (27.0-33.0); MEAN CORPUSCULAR HGB CONC 35.5 g/dl (32.0-36.5); MEAN CORPUSCULAR VOLUME 90.9 fl (80.0-96.0); MONO # 0.7 10^3/uL (0.0-0.8); MONO % 8.7 % (0.0-5.0); NEUTROPHILS % 77.9 % (36.0-66.0); PLATELET COUNT, AUTOMATED 134 10^3/uL (150-450); RED BLOOD COUNT 4.96 10^6/uL (4.30-6.10); RED CELL DISTRIBUTION WIDTH 12.5 % (11.5-14.5); WHITE BLOOD COUNT 7.7 10^3/uL (4.0-10.0)
[2018-01-11 10:19] LABS: CARBOXYHEMOGLOBIN 1.4 % (0.0-1.5)
[2018-01-11 10:22] LABS: INR 1.15; PROTHROMBIN TIME 14.8 SECONDS (12.1-14.4)
[2018-01-11 10:23] LABS: PARTIAL THROMBOPLASTIN TIME 32.2 SECONDS (25.4-37.6)
[2018-01-11 10:35] LABS: AMMONIA 21 uMOL/L (<32)
[2018-01-11 10:40] LABS: LACTIC ACID SEPSIS PROTOCOL 2.8 MMOL/L (0.4-2.0)
[2018-01-11 10:42] LABS: ALBUMIN/GLOBULIN RATIO 1.11 (1.00-1.93); ALT/SGPT 72 U/L (12-78); ANION GAP 12 MEQ/L (8-16); AST/SGOT 94 U/L (7-37); BILIRUBIN,DIRECT 0.7 MG/DL (0.0-0.2); BILIRUBIN,TOTAL 2.4 MG/DL (0.2-1.0); BLOOD UREA NITROGEN 5 MG/DL (7-18); CALCIUM LEVEL 8.7 MG/DL (8.5-10.1); CARBON DIOXIDE LEVEL 27 MEQ/L (21-32); CHLORIDE LEVEL 101 MEQ/L (98-107); CPK CREATINE PHOSPHOKINASE 147 U/L (39-308); CREATININE FOR GFR 0.77 MG/DL (0.70-1.30); ETHYL ALCOHOL (ETHANOL) < 0.003 % (0.000-0.010); GLOMERULAR FILTRATION RATE > 60.0 (>60); GLUCOSE, FASTING 150 MG/DL (70-100); LIPASE 297 U/L (73-393); POTASSIUM SERUM 3.3 MEQ/L (3.5-5.1); SALICYLATE LEVEL < 1.7 MG/DL (5.0-30.0); SODIUM LEVEL 140 MEQ/L (136-145); TOTAL PROTEIN 7.6 GM/DL (6.4-8.2); TROPONIN I < 0.02 NG/ML (< 0.10)
[2018-01-11 10:47] LABS: ALKALINE PHOSPHATASE 111 U/L (45-117); CK-MB VALUE MASS 1.5 NG/ML (<3.6); MB/CK RELATIVE INDEX 1.02 (< OR =4)
[2018-01-11 10:48] LABS: ACETAMINOPHEN LEVEL < 2.0 UG/ML (10.0-30.0)
[2018-01-11 11:05] LABS: ABG BASE EXCESS 1.3 (-2.0-2.0); ABG HCO3 23.8 MEQ/L (22.0-26.0); ABG O2 SATURATION 96.1 % (95.0-99.0); ABG PARTIAL PRESSURE O2 77.6 mmHg (75.0-100.0); ABG STANDARD HCO3 25.6 MEQ/L (22.0-26.0); ABG TOTAL CO2 24.8 MEQ/L (22.0-29.0); ABG pH (ARTERIAL) 7.489 UNITS (7.350-7.450)
[2018-01-11] MEDS: NS 1,000 ML IV ×2 (11:15→14:30)
[2018-01-11 13:19] LABS: KETONE, URINE AUTO RFX NEGATIVE (NEGATIVE); LEUKOCYTE ESTERASE UR AUTO RFX NEGATIVE (NEGATIVE); NITRITE, URINE AUTO RFX NEGATIVE (NEGATIVE); RBC, URINE AUTO RFX 0 /HPF (0-3); SPECIFIC GRAVITY UR AUTO RFX 1.008 (1.002-1.035); SQUAM EPITHELIAL CELL UR AURFX 0 /HPF (0-6); WBC, URINE AUTO RFX 0 /HPF (0-3)
[2018-01-11 13:42] LABS: AMPHETAMINES LEVEL URINE NEGATIVE (NEGATIVE); BARBITURATES URINE NEGATIVE (NEGATIVE); BENZODIAZEPINES URINE NEGATIVE (NEGATIVE); CANNABINOIDS URINE NEGATIVE (NEGATIVE); COCAINE METABOLITE URINE NEGATIVE (NEGATIVE); METHADONE URINE NEGATIVE (NEGATIVE); OPIATES URINE NEGATIVE (NEGATIVE); PHENCYCLIDINE URINE NEGATIVE (NEGATIVE)
[2018-01-11] MEDS: LORazepam 2 MG/ML VIAL (J2060) IV (14:17)
[2018-01-11] MEDS: KCL 40MEQ in NS 1000ML 1,000 ML IV (18:23)
[2018-01-11] MEDS: fluvoxaMINE MALEATE 50 MG TAB PO ×2 (20:39→20:40)
[2018-01-11] MEDS: amLODIPine 5 MG TAB PO (20:40)
[2018-01-12] MEDS: KCL 40MEQ in NS 1000ML 1,000 ML IV ×3 (04:08→11:15)
[2018-01-12 06:13] LABS: BASO % 0.2 % (0.0-1.0); EOS % 0.2 % (0.0-3.0); HEMATOCRIT 44.3 % (42.0-52.0); HEMOGLOBIN 15.5 g/dl (13.5-17.5); IMMATURE GRANULOCYTE % 0.2 % (0-3.0); LYMPH # 2.7 10^3/uL (1.5-4.5); LYMPH % 29.7 % (24.0-44.0); MEAN CORPUSCULAR VOLUME 91.5 fl (80.0-96.0); MONO # 0.9 10^3/uL (0.0-0.8); MONO % 9.9 % (0.0-5.0); NEUTROPHILS # 5.3 10^3/uL (1.8-7.7); NEUTROPHILS % 59.8 % (36.0-66.0); PLATELET COUNT, AUTOMATED 120 10^3/uL (150-450); RED BLOOD COUNT 4.84 10^6/uL (4.30-6.10); RED CELL DISTRIBUTION WIDTH 12.9 % (11.5-14.5); WHITE BLOOD COUNT 8.9 10^3/uL (4.0-10.0)
[2018-01-12 06:21] LABS: POS COUNT POS FLAG
[2018-01-12 06:40] LABS: ALBUMIN 3.6 GM/DL (3.2-5.2); ALKALINE PHOSPHATASE 101 U/L (45-117); ALT/SGPT 64 U/L (12-78); ANION GAP 11 MEQ/L (8-16); AST/SGOT 71 U/L (7-37); BLOOD UREA NITROGEN 5 MG/DL (7-18); CALCIUM LEVEL 8.8 MG/DL (8.5-10.1); CARBON DIOXIDE LEVEL 23 MEQ/L (21-32); CHLORIDE LEVEL 109 MEQ/L (98-107); CREATININE FOR GFR 0.74 MG/DL (0.70-1.30); GLOMERULAR FILTRATION RATE > 60.0 (>60); GLUCOSE, FASTING 118 MG/DL (70-100); MAGNESIUM LEVEL 1.7 MG/DL (1.8-2.4); POTASSIUM SERUM 4.1 MEQ/L (3.5-5.1); SODIUM LEVEL 143 MEQ/L (136-145); TOTAL PROTEIN 7.6 GM/DL (6.4-8.2)
[2018-01-12 06:56] LABS: BILIRUBIN,TOTAL 4.5 MG/DL (0.2-1.0)
[2018-01-12] MEDS: fluvoxaMINE MALEATE 50 MG TAB PO ×2 (08:53→21:07)
[2018-01-12] MEDS: amLODIPine 5 MG TAB PO ×2 (08:56→21:08)
[2018-01-12] MEDS: ENOXAPARIN 40 MG/0.4 ML SYRINGE (J1650) SC (08:57)
[2018-01-12] MEDS: POLYTRIM OPTH DROPS 10ML OU ×2 (18:44→21:08)
[2018-01-12] MEDS ORDERED: LORazepam 2 MG TAB PO (18:45)
[2018-01-13] MEDS: POLYTRIM OPTH DROPS 10ML OU ×3 (05:36→11:39)
[2018-01-13 07:27] LABS: ALBUMIN 3.6 GM/DL (3.2-5.2); ALBUMIN/GLOBULIN RATIO 0.82 (1.00-1.93); ALKALINE PHOSPHATASE 97 U/L (45-117); ALT/SGPT 61 U/L (12-78); ANION GAP 8 MEQ/L (8-16); AST/SGOT 73 U/L (7-37); BILIRUBIN,TOTAL 4.2 MG/DL (0.2-1.0); BLOOD UREA NITROGEN 10 MG/DL (7-18); CALCIUM LEVEL 9.1 MG/DL (8.5-10.1); CARBON DIOXIDE LEVEL 27 MEQ/L (21-32); CHLORIDE LEVEL 106 MEQ/L (98-107); CREATININE FOR GFR 0.82 MG/DL (0.70-1.30); GLOMERULAR FILTRATION RATE > 60.0 (>60); GLUCOSE, FASTING 108 MG/DL (70-100); POTASSIUM SERUM 4.1 MEQ/L (3.5-5.1); SODIUM LEVEL 141 MEQ/L (136-145)
[2018-01-13] MEDS: ENOXAPARIN 40 MG/0.4 ML SYRINGE (J1650) SC (08:46)
[2018-01-13] MEDS: fluvoxaMINE MALEATE 50 MG TAB PO (08:46)
[2018-01-13] MEDS: amLODIPine 5 MG TAB PO (08:49)
== END 2018-01-13 12:10 | disposition home or self-care (01) | DRG 422 ==
LOC: M ED 08:29 → M ED INP 15:06 → M MSPAV 18:15
PROVIDERS: Family Medicine
DX: E87.8 Other disorders of electrolyte and fluid balance, not elsewhere classified (principal); F10.239 Alcohol dependence with withdrawal, unspecified; K70.9 Alcoholic liver disease, unspecified; E86.0 Dehydration; R11.2 Nausea with vomiting, unspecified; E87.6 Hypokalemia

== ENCOUNTER → 2018-01-22 | Outpatient (REF) | payer OTHER ==
[2018-01-22 20:01] LABS: AMMONIA 67 uMOL/L (<32)
[2018-01-22 20:06] LABS: HEMATOCRIT 42.4 % (42.0-52.0); HEMOGLOBIN 14.5 g/dl (13.5-17.5); MEAN CORPUSCULAR HEMOGLOBIN 32.5 pg (27.0-33.0); MEAN CORPUSCULAR HGB CONC 34.2 g/dl (32.0-36.5); MEAN CORPUSCULAR VOLUME 95.1 fl (80.0-96.0); PLATELET COUNT, AUTOMATED 440 10^3/uL (150-450); RED BLOOD COUNT 4.46 10^6/uL (4.30-6.10); RED CELL DISTRIBUTION WIDTH 12.7 % (11.5-14.5); WHITE BLOOD COUNT 9.1 10^3/uL (4.0-10.0)
[2018-01-22 20:11] LABS: ALBUMIN 3.8 GM/DL (3.2-5.2); ALKALINE PHOSPHATASE 99 U/L (45-117); ALT/SGPT 159 U/L (12-78); ANION GAP 8 MEQ/L (8-16); AST/SGOT 82 U/L (7-37); BILIRUBIN,TOTAL 0.8 MG/DL (0.2-1.0); BLOOD UREA NITROGEN 8 MG/DL (7-18); CALCIUM LEVEL 9.8 MG/DL (8.5-10.1); CARBON DIOXIDE LEVEL 27 MEQ/L (21-32); CHLORIDE LEVEL 107 MEQ/L (98-107); CREATININE FOR GFR 0.85 MG/DL (0.70-1.30); GLOMERULAR FILTRATION RATE > 60.0 (>60); GLUCOSE, FASTING 123 MG/DL (70-100); POTASSIUM SERUM 3.9 MEQ/L (3.5-5.1); SODIUM LEVEL 142 MEQ/L (136-145); TOTAL PROTEIN 7.6 GM/DL (6.4-8.2)
== END ==
LOC: M SFHCADAM 14:44
DX: K70.30 Alcoholic cirrhosis of liver without ascites (principal); K72.90 Hepatic failure, unspecified without coma

== ENCOUNTER → 2018-05-06 | Outpatient (CLI) | payer OTHER ==
[2018-05-06 12:38] LABS: HEMATOCRIT 38.6 % (42.0-52.0); HEMOGLOBIN 13.6 g/dl (13.5-17.5); MEAN CORPUSCULAR HEMOGLOBIN 33.8 pg (27.0-33.0); MEAN CORPUSCULAR HGB CONC 35.2 g/dl (32.0-36.5); PLATELET COUNT, AUTOMATED 307 10^3/uL (150-450); RED BLOOD COUNT 4.02 10^6/uL (4.30-6.10); RED CELL DISTRIBUTION WIDTH 14.9 % (11.5-14.5); WHITE BLOOD COUNT 15.6 10^3/uL (4.0-10.0)
[2018-05-06 12:54] LABS: INR 1.36
[2018-05-06 12:57] LABS: AMMONIA < 10 uMOL/L (<32)
[2018-05-06 13:16] LABS: ALBUMIN 2.2 GM/DL (3.2-5.2); ALBUMIN/GLOBULIN RATIO 0.69 (1.00-1.93); ALKALINE PHOSPHATASE 229 U/L (45-117); ALT/SGPT 117 U/L (12-78); ANION GAP 10 MEQ/L (8-16); AST/SGOT 172 U/L (7-37); BILIRUBIN,TOTAL 23.9 MG/DL (0.2-1.0); BLOOD UREA NITROGEN 12 MG/DL (7-18); CALCIUM LEVEL 8.4 MG/DL (8.5-10.1); CARBON DIOXIDE LEVEL 28 MEQ/L (21-32); CHLORIDE LEVEL 100 MEQ/L (98-107); CREATININE FOR GFR 0.98 MG/DL (0.70-1.30); GLOMERULAR FILTRATION RATE > 60.0 (>60); GLUCOSE, FASTING 95 MG/DL (70-100); POTASSIUM SERUM 3.4 MEQ/L (3.5-5.1); SODIUM LEVEL 138 MEQ/L (136-145); TOTAL PROTEIN 5.4 GM/DL (6.4-8.2)
== END ==
LOC: M LAB 11:45
DX: K72.90 Hepatic failure, unspecified without coma (principal); K70.30 Alcoholic cirrhosis of liver without ascites
CPT/HCPCS: 82140

== ENCOUNTER 2018-05-10 08:40 | Emergency (ER) | payer OTHER ==
[2018-05-10] MEDS: NS 1,000 ML IV (10:05)
[2018-05-10 10:13] LABS: BASO # 0.1 10^3/uL (0.0-0.2); BASO % 0.7 % (0.0-1.0); EOS # 0.1 10^3/uL (0.0-0.50); EOS % 0.4 % (0.0-3.0); HEMATOCRIT 38.5 % (42.0-52.0); HEMOGLOBIN 13.3 g/dl (13.5-17.5); IMMATURE GRANULOCYTE % 1.2 % (0-3.0); LYMPH # 1.5 10^3/uL (1.5-4.5); LYMPH % 10.7 % (24.0-44.0); MEAN CORPUSCULAR HEMOGLOBIN 34.4 pg (27.0-33.0); MEAN CORPUSCULAR HGB CONC 34.5 g/dl (32.0-36.5); MEAN CORPUSCULAR VOLUME 99.5 fl (80.0-96.0); MONO # 0.8 10^3/uL (0.0-0.8); NEUTROPHILS # 11.2 10^3/uL (1.8-7.7); PLATELET COUNT, AUTOMATED 268 10^3/uL (150-450); RED BLOOD COUNT 3.87 10^6/uL (4.30-6.10); RED CELL DISTRIBUTION WIDTH 14.2 % (11.5-14.5); WHITE BLOOD COUNT 13.8 10^3/uL (4.0-10.0)
[2018-05-10 10:24] LABS: INR 1.34; PROTHROMBIN TIME 16.8 SECONDS (12.1-14.4)
[2018-05-10 10:25] LABS: PARTIAL THROMBOPLASTIN TIME 34.2 SECONDS (25.4-37.6)
[2018-05-10 10:38] LABS: AMMONIA < 10 uMOL/L (<32)
[2018-05-10 10:44] LABS: LACTIC ACID SEPSIS PROTOCOL 1.4 MMOL/L (0.4-2.0)
[2018-05-10 10:45] LABS: ALBUMIN 2.3 GM/DL (3.2-5.2); ALBUMIN/GLOBULIN RATIO 0.68 (1.00-1.93); ALKALINE PHOSPHATASE 198 U/L (45-117); ALT/SGPT 90 U/L (12-78); AMYLASE 39 U/L (25-115); ANION GAP 7 MEQ/L (8-16); AST/SGOT 124 U/L (7-37); BILIRUBIN,TOTAL 18.7 MG/DL (0.2-1.0); BLOOD UREA NITROGEN 11 MG/DL (7-18); CALCIUM LEVEL 8.9 MG/DL (8.5-10.1); CARBON DIOXIDE LEVEL 28 MEQ/L (21-32); CHLORIDE LEVEL 100 MEQ/L (98-107); CREATININE FOR GFR 0.97 MG/DL (0.70-1.30); GLOMERULAR FILTRATION RATE > 60.0 (>60); GLUCOSE, FASTING 99 MG/DL (70-100); LIPASE 351 U/L (73-393); POTASSIUM SERUM 3.2 MEQ/L (3.5-5.1); SODIUM LEVEL 135 MEQ/L (136-145); TOTAL PROTEIN 5.7 GM/DL (6.4-8.2)
[2018-05-10 14:52] LABS: APPEARANCE, URINE CLEAR (CLEAR); BACTERIA, URINE AUTO NEGATIVE (NEGATIVE); BILIRUBIN, URINE AUTO 2+ (NEGATIVE); BLOOD, URINE BLOOD NEGATIVE (NEGATIVE); COLOR, URINE AMBER (YELLOW); GLUCOSE, URINE (UA) AUTO NEGATIVE (NEGATIVE); KETONE, URINE AUTO NEGATIVE (NEGATIVE); LEUKOCYTE ESTERASE, URINE AUTO NEGATIVE (NEGATIVE); NITRITE, URINE AUTO NEGATIVE (NEGATIVE); PROTEIN, URINE AUTO NEGATIVE (NEGATIVE); RBC, URINE AUTO 2 /HPF (0-3); SQUAMOUS EPITHELIAL CELL UR AU 0 /HPF (0-6); WBC, URINE AUTO 2 /HPF (0-3)
== END 2018-05-10 15:00 | disposition home or self-care (01) ==
LOC: M ED 08:40
DX: I10 Essential (primary) hypertension (principal); K70.11 Alcoholic hepatitis with ascites
CPT/HCPCS: 76705

== ENCOUNTER → 2018-05-20 | Outpatient (CLI) | payer OTHER ==
[2018-05-20 08:44] LABS: BASO # 0.1 10^3/uL (0.0-0.2); BASO % 0.7 % (0.0-1.0); EOS # 0.1 10^3/uL (0.0-0.50); EOS % 0.9 % (0.0-3.0); HEMATOCRIT 36.7 % (42.0-52.0); HEMOGLOBIN 12.6 g/dl (13.5-17.5); IMMATURE GRANULOCYTE % 0.8 % (0-3.0); LYMPH # 2.1 10^3/uL (1.5-4.5); LYMPH % 19.4 % (24.0-44.0); MEAN CORPUSCULAR HEMOGLOBIN 34.5 pg (27.0-33.0); MEAN CORPUSCULAR HGB CONC 34.3 g/dl (32.0-36.5); MEAN CORPUSCULAR VOLUME 100.5 fl (80.0-96.0); MONO # 0.8 10^3/uL (0.0-0.8); MONO % 7.2 % (0.0-5.0); NEUTROPHILS # 7.5 10^3/uL (1.8-7.7); PLATELET COUNT, AUTOMATED 299 10^3/uL (150-450); RED BLOOD COUNT 3.65 10^6/uL (4.30-6.10); RED CELL DISTRIBUTION WIDTH 13.2 % (11.5-14.5); WHITE BLOOD COUNT 10.6 10^3/uL (4.0-10.0)
[2018-05-20 08:55] LABS: INR 1.28; PROTHROMBIN TIME 16.2 SECONDS (12.1-14.4)
[2018-05-20 08:56] LABS: PARTIAL THROMBOPLASTIN TIME 38.7 SECONDS (25.4-37.6)
[2018-05-20 09:16] LABS: ALBUMIN 2.6 GM/DL (3.2-5.2); ALBUMIN/GLOBULIN RATIO 0.74 (1.00-1.93); ALKALINE PHOSPHATASE 153 U/L (45-117); ALT/SGPT 66 U/L (12-78); AST/SGOT 104 U/L (7-37); BILIRUBIN,TOTAL 10.1 MG/DL (0.2-1.0); PHOSPHORUS LEVEL 3.1 MG/DL (2.5-4.9); TOTAL PROTEIN 6.1 GM/DL (6.4-8.2)
[2018-05-20 10:54] LABS: FOLATE > 24.0 NG/ML; VITAMIN B12 LEVEL 654 PG/ML
== END ==
LOC: M LAB 08:05
DX: K70.11 Alcoholic hepatitis with ascites (principal)
CPT/HCPCS: 82746

== ENCOUNTER → 2018-07-12 | Outpatient (CLI) | payer OTHER ==
[~2018-07-12] MED LIST changes: -AMLO5TAB2 PO; +AMLO5TAB6 PO; +B-1100TA2 PO; +FOLI1TAB11 PO; -FOLI1TAB4 PO; +KLOR10TA76 PO; -LASI20TA PO; +LASI20TA3 PO; +LYRI75CA PO; +MELO15TA28 PO; -MELO15TA4 PO; -POTA10CA PO; -SPIR50TA2 PO; +SPIR50TA4 PO
--- NOTE | 2018-07-12 19:19 | REP ---
Clinical: Alcoholic hepatitis. Technique: Real time stubbs scale ultrasound examination using curved array transducer. Findings: Liver demonstrates increased echogenicity along with subtle irregular contour and evidence for patent recanalized umbilical vein suggesting hepatocellular disease and cirrhosis. No focal hepatic lesions are identified. The pancreas is incompletely evaluated due to interposed bowel gas but visualized portions appear normal. The gallbladder demonstrates mild wall thickening to 4.7 mm which may be chronic. No gallstones, pericholecystic fluid, or sonographic Dixon's sign noted. No biliary ductal dilatation is appreciated and the common bile duct measures 4.8 mm diameter. Splenomegaly is appreciate without focal splenic lesion (splenic index equals 907). The bilateral kidneys are normal in reniform shape without hydronephrosis. Right kidney measures 11.4 x 6.9 x 5.6 cm. Left kidney measures 11.5 x 4.8 x 6.5 cm with suggestions for column of [place]. Visualized abdominal aorta appears normal and measures 2.2 cm maximal diameter. No ascites. Incidental small left pleural effusion noted. Impression: 1. Hepatocellular disease and findings to suggest cirrhosis with portal venous hypertension including recanalized umbilical vein and splenomegaly. 2. Gallbladder wall thickening likely chronic. 3. No ascites. 4. Small left pleural effusion. Electronically Signed by Javi Heredia MD 07/12/2018 07:11 P
== END ==
LOC: M RAD 08:39
PROVIDERS: ATTEND Internal Medicine Gastroenterology
DX: K76.9 Liver disease, unspecified (principal); K83.8 Other specified diseases of biliary tract; K70.11 Alcoholic hepatitis with ascites

== ENCOUNTER 2018-10-23 13:50 | Emergency (ER) | payer OTHER ==
[~2018-10-23] VITALS: Ht 165.1 cm; Wt 79.5 kg
[2018-10-23] MEDS ORDERED: SPIR50TA4 (14:01)
[2018-10-23] MEDS ORDERED: AMLO5TAB6 (14:01)
[2018-10-23] MEDS ORDERED: GABA800T4 (14:01)
--- NOTE | 2018-10-23 15:00 | REP ---
LEFT ANKLE, FOUR VIEWS: There is no evidence of an acute fracture, dislocation or intrinsic bone disease. IMPRESSION: No fracture or dislocation. Electronically Signed by Holden Reinoso MD 10/23/2018 03:58 P
[2018-10-23] MEDS ORDERED: OXYC1CAP PO (16:40)
[2018-10-23 16:50] VITALS: BP 136/75
--- NOTE | 2018-10-24 06:45 | REP ---
LEFT FOOT SERIES: Four views of the left foot performed. There is a nondisplaced transverse fracture at the base of the fifth metatarsal. No other acute fracture or dislocation is seen. IMPRESSION: Nondisplaced fracture base of fifth metatarsal. Electronically Signed by Holden Reinoso MD 10/24/2018 11:27 A
== END 2018-10-23 17:00 | disposition home or self-care (01) ==
LOC: M ED 13:50
DX: S92.355A Nondisplaced fracture of fifth metatarsal bone, left foot, initial encounter for closed fracture (principal); X50.1XXA Overexertion from prolonged static or awkward postures, initial encounter; Y92.099 Unspecified place in other non-institutional residence as the place of occurrence of the external cause; Y93.9 Activity, unspecified; Y99.9 Unspecified external cause status; K72.91 Hepatic failure, unspecified with coma; K70.9 Alcoholic liver disease, unspecified; F10.10 Alcohol abuse, uncomplicated; F42.9 Obsessive-compulsive disorder, unspecified; Z87.891 Personal history of nicotine dependence; Z79.899 Other long term (current) drug therapy; Z88.8 Allergy status to other drugs, medicaments and biological substances

== ENCOUNTER → 2018-11-03 | Outpatient (REF) | payer OTHER ==
[~2018-11-03] MED LIST changes: +AMLO5TAB6; +GABA800T4; +OXYC1CAP PO; +SPIR50TA4
== END ==
LOC: M SFHCADAM 09:05
PROVIDERS: ATTEND Family Medicine
DX: K70.30 Alcoholic cirrhosis of liver without ascites (principal); K72.90 Hepatic failure, unspecified without coma; R41.840 Attention and concentration deficit; Z53.9 Procedure and treatment not carried out, unspecified reason

== ENCOUNTER → 2019-02-03 | Outpatient (CLI) | payer OTHER ==
[2019-02-03 08:55] LABS: BASO # 0.1 10^3/uL (0.0-0.2); BASO % 0.7 % (0.0-1.0); EOS # 0.1 10^3/uL (0.0-0.50); EOS % 1.4 % (0.0-3.0); HEMATOCRIT 42.9 % (42.0-52.0); LYMPH % 40.8 % (24.0-44.0); MEAN CORPUSCULAR HEMOGLOBIN 30.6 pg (27.0-33.0); MEAN CORPUSCULAR VOLUME 87.6 fl (80.0-96.0); MONO # 0.5 10^3/uL (0.0-0.8); MONO % 7.2 % (0.0-5.0); NEUTROPHILS # 3.6 10^3/uL (1.8-7.7); NEUTROPHILS % 49.3 % (36.0-66.0); PLATELET COUNT, AUTOMATED 263 10^3/uL (150-450); WHITE BLOOD COUNT 7.3 10^3/uL (4.0-10.0)
[2019-02-03 09:53] LABS: INR 1.04; PROTHROMBIN TIME 13.3 SECONDS (11.8-14.0)
[2019-02-03 09:54] LABS: PARTIAL THROMBOPLASTIN TIME 33.2 SECONDS (25.0-38.4)
[2019-02-03 10:26] LABS: ALBUMIN 4.3 GM/DL (3.2-5.2); ALT/SGPT 43 U/L (12-78); BILIRUBIN,DIRECT 0.2 MG/DL (0.0-0.2); BILIRUBIN,TOTAL 0.9 MG/DL (0.2-1.0); BLOOD UREA NITROGEN 13 MG/DL (7-18); CALCIUM LEVEL 10.6 MG/DL (8.5-10.1); CARBON DIOXIDE LEVEL 30 MEQ/L (21-32); CHLORIDE LEVEL 103 MEQ/L (98-107); CREATININE FOR GFR 1.07 MG/DL (0.70-1.30); GAMMA GLUTAMYLTRANSPEPTIDASE 371 U/L (15-85); GLOMERULAR FILTRATION RATE > 60.0 (>60); GLUCOSE, FASTING 94 MG/DL (70-100); POTASSIUM SERUM 4.6 MEQ/L (3.5-5.1); SODIUM LEVEL 139 MEQ/L (136-145); TOTAL PROTEIN 7.4 GM/DL (6.4-8.2)
== END ==
LOC: M LAB 07:56
PROVIDERS: ATTEND Internal Medicine Gastroenterology
DX: K70.11 Alcoholic hepatitis with ascites (principal)

== ENCOUNTER → 2019-03-09 | Outpatient (CLI) | payer OTHER ==
--- NOTE | 2019-03-10 06:50 | REP ---
Clinical: Alcoholic cirrhosis. Technique: Real time stubbs scale ultrasound examination using curved array transducer. Findings: Liver is heterogeneous in echotexture without focal hepatic lesion identified and measures 16.7 cm craniocaudal length. Gallbladder is normal and without gallstones, wall thickening, or pericholecystic fluid. No biliary ductal dilatation is appreciated and the common bile duct measures 4.7 mm diameter. The pancreas is incompletely evaluated due to interposed bowel gas but visualized portions appear normal. The spleen is mildly enlarged and measures 12.2 centimeters maximal length with a splenic index of 620. The bilateral kidneys are normal in appearance without hydronephrosis. Right kidney measures 11.0 x 4.5 x 6.0 cm. Left kidney measures 11.4 x 5.4 x 5.6 cm. Abdominal aorta appears normal and measures 2.3 cm maximal diameter. No ascites. Impression: 1. Heterogeneous liver echotexture consistent with cirrhosis. 2. Spleen is mildly enlarged without focal splenic lesion identified. 3. No ascites. Electronically Signed by Javi Heredia MD 03/10/2019 06:41 A
== END ==
LOC: M RAD 08:25
PROVIDERS: ATTEND Internal Medicine Gastroenterology
DX: K70.31 Alcoholic cirrhosis of liver with ascites (principal)

== ENCOUNTER → 2019-07-01 | Outpatient (CLI) | payer OTHER ==
[2019-07-01 10:24] LABS: HEMATOCRIT 45.4 % (42.0-52.0); HEMOGLOBIN 15.5 g/dl (13.5-17.5); MEAN CORPUSCULAR HEMOGLOBIN 30.5 pg (27.0-33.0); MEAN CORPUSCULAR HGB CONC 34.1 g/dl (32.0-36.5); MEAN CORPUSCULAR VOLUME 89.2 fl (80.0-96.0); PLATELET COUNT, AUTOMATED 312 10^3/uL (150-450); RED BLOOD COUNT 5.09 10^6/uL (4.30-6.10); WHITE BLOOD COUNT 7.1 10^3/uL (4.0-10.0)
[2019-07-01 10:38] LABS: INR 1.06; PROTHROMBIN TIME 13.5 SECONDS (11.8-14.0)
[2019-07-01 11:01] LABS: ALBUMIN 4.3 GM/DL (3.2-5.2); ALT/SGPT 67 U/L (12-78); BILIRUBIN,TOTAL 0.7 MG/DL (0.2-1.0); BLOOD UREA NITROGEN 15 MG/DL (7-18); CALCIUM LEVEL 9.8 MG/DL (8.5-10.1); CARBON DIOXIDE LEVEL 28 MEQ/L (21-32); CHLORIDE LEVEL 104 MEQ/L (98-107); CREATININE FOR GFR 0.99 MG/DL (0.70-1.30); FREE T4 1.02 NG/DL (0.76-1.46); GLOMERULAR FILTRATION RATE > 60.0 (>60); GLUCOSE, FASTING 103 MG/DL (70-100); POTASSIUM SERUM 4.8 MEQ/L (3.5-5.1); SODIUM LEVEL 140 MEQ/L (136-145); TOTAL PROTEIN 7.5 GM/DL (6.4-8.2)
== END ==
LOC: M PLALAB 07:58
PROVIDERS: ATTEND Family Medicine
DX: K70.30 Alcoholic cirrhosis of liver without ascites (principal); R41.840 Attention and concentration deficit; K72.90 Hepatic failure, unspecified without coma

== ENCOUNTER → 2019-09-15 | Outpatient (CLI) | payer OTHER ==
[2019-09-15 07:46] LABS: ALBUMIN 4.4 GM/DL (3.2-5.2); BILIRUBIN,DIRECT 0.2 MG/DL (0.0-0.2); BILIRUBIN,TOTAL 0.7 MG/DL (0.2-1.0); TOTAL PROTEIN 7.7 GM/DL (6.4-8.2)
--- NOTE | 2019-09-15 09:30 | REP ---
RIGHT UPPER QUADRANT ULTRASOUND: Real-time sonographic evaluation of the right upper quadrant performed. Gallbladder demonstrates no evidence of interstitial luminal sludge or calculi, wall thickening or pericholecystic fluid. There is no intrahepatic or extrahepatic biliary dilatation, common bile duct measuring 5 mm. Liver demonstrates no mass. Pancreas demonstrates no gross abnormality, not well seen due to overlying bowel gas. Right kidney demonstrates no hydronephrosis with normal size 11.6 cm in length. IMPRESSION: Negative right upper quadrant ultrasound. Electronically Signed by Holden Reinoso MD 09/15/2019 04:48 P
== END ==
LOC: M RAD 06:19
PROVIDERS: ATTEND Internal Medicine Gastroenterology
DX: K70.31 Alcoholic cirrhosis of liver with ascites (principal)

== ENCOUNTER → 2020-01-06 | Outpatient (REF) | payer OTHER ==
[~2020-01-06] MED LIST changes: +AMLO1TAB24; +AMLO1TAB24 PO; -AMLO5TAB6; -AMLO5TAB6 PO; -LACT10SO29 PO; +LACT20EL PO
== END ==
LOC: M SFHCADAM 09:31
PROVIDERS: ATTEND Family Medicine
DX: K70.30 Alcoholic cirrhosis of liver without ascites (principal)

== ENCOUNTER → 2020-03-06 | Outpatient (CLI) | payer OTHER ==
[2020-03-06 08:58] LABS: HEMATOCRIT 44.7 % (42.0-52.0); HEMOGLOBIN 15.3 g/dl (13.5-17.5); MEAN CORPUSCULAR HEMOGLOBIN 31.3 pg (27.0-33.0); MEAN CORPUSCULAR HGB CONC 34.2 g/dl (32.0-36.5); MEAN CORPUSCULAR VOLUME 91.4 fl (80.0-96.0); PLATELET COUNT, AUTOMATED 256 10^3/uL (150-450); RED BLOOD COUNT 4.89 10^6/uL (4.30-6.10); WHITE BLOOD COUNT 7.4 10^3/uL (4.0-10.0)
[2020-03-06 09:23] LABS: ALBUMIN 3.9 GM/DL (3.2-5.2); ALT/SGPT 41 U/L (12-78); BILIRUBIN,TOTAL 0.6 MG/DL (0.2-1.0); BLOOD UREA NITROGEN 16 MG/DL (7-18); CALCIUM LEVEL 9.6 MG/DL (8.5-10.1); CARBON DIOXIDE LEVEL 28 MEQ/L (21-32); CHLORIDE LEVEL 109 MEQ/L (98-107); CREATININE FOR GFR 1.03 MG/DL (0.70-1.30); GLOMERULAR FILTRATION RATE > 60.0 (>60); GLUCOSE, FASTING 100 MG/DL (70-100); POTASSIUM SERUM 4.6 MEQ/L (3.5-5.1); SODIUM LEVEL 142 MEQ/L (136-145); TOTAL PROTEIN 6.9 GM/DL (6.4-8.2)
== END ==
LOC: M LAB 07:52
PROVIDERS: ATTEND Family Medicine
DX: K70.30 Alcoholic cirrhosis of liver without ascites (principal)

== ENCOUNTER → 2020-03-06 | Outpatient (CLI) | payer OTHER ==
[2020-03-06 09:14] LABS: BASO % 0.6 % (0.0-1.0); EOS # 0.1 10^3/uL (0.0-0.5); EOS % 1.4 % (0.0-3.0); HEMATOCRIT 42.9 % (42.0-52.0); HEMOGLOBIN 14.9 g/dl (13.5-17.5); LYMPH # 2.7 10^3/uL (1.5-5.0); LYMPH % 38.9 % (24.0-44.0); MEAN CORPUSCULAR HEMOGLOBIN 31.7 pg (27.0-33.0); MEAN CORPUSCULAR HGB CONC 34.7 g/dl (32.0-36.5); MEAN CORPUSCULAR VOLUME 91.3 fl (80.0-96.0); MONO # 0.5 10^3/uL (0.0-0.8); MONO % 6.9 % (0.0-5.0); NEUTROPHILS # 3.6 10^3/uL (1.5-8.5); NEUTROPHILS % 51.5 % (36.0-66.0); PLATELET COUNT, AUTOMATED 243 10^3/uL (150-450)
[2020-03-06 09:37] LABS: ALBUMIN 3.8 GM/DL (3.2-5.2); BILIRUBIN,DIRECT 0.2 MG/DL (0.0-0.2); BILIRUBIN,TOTAL 0.6 MG/DL (0.2-1.0); INR 0.97; PARTIAL THROMBOPLASTIN TIME 28.9 SECONDS (25.0-38.4); PROTHROMBIN TIME 13.1 SECONDS (11.8-14.0); TOTAL PROTEIN 6.9 GM/DL (6.4-8.2)
--- NOTE | 2020-03-22 17:16 | REP ---
COMPLETE ABDOMINAL ULTRASOUND: CLINICAL: Alcoholic cirrhosis. TECHNIQUE: Real time, stubbs scale ultrasound examination using curved array transducer. FINDINGS: The liver and pancreas are normal in contour, size and echogenicity without focal hepatic or pancreatic lesion identified. The spleen is upper limits of normal and measures 11.0 x 10.8 x 5.9 cm without evidence for splenic lesion. The gallbladder is normal and without gallstones, wall thickening or pericholecystic fluid. No biliary ductal dilatation is appreciated and the common bile duct measures 3.5 mm diameter. The bilateral kidneys are normal in appearance without hydronephrosis. The right kidney measures 11.2 x 6.7 x 5.9 cm. The left kidney measures 11.2 x 5.3 x 5.6 cm. No ascites in the visualized abdomen and the abdominal aorta appears normal. IMPRESSION: The spleen is upper limits of normal without splenic lesion. Otherwise, normal complete abdominal ultrasound. [facility]
== END ==
LOC: M RAD 06:56
PROVIDERS: ATTEND Internal Medicine Gastroenterology
DX: K70.31 Alcoholic cirrhosis of liver with ascites (principal); R94.5 Abnormal results of liver function studies

== ENCOUNTER → 2020-04-25 | Outpatient (CLI) | payer OTHER | LOC: M LABSMTC 12:33 | PROVIDERS: ATTEND Anesthesiology | DX: Z01.818 Encounter for other preprocedural examination (principal) | CPT/HCPCS: C9803; U0003 ==

== ENCOUNTER 2020-04-30 06:59 | Day surgery (SDC) | payer OTHER ==
[~2020-04-30] VITALS: Ht 165.1 cm; Wt 93.0 kg
[~2020-04-30 06:59] MED LIST changes: +NS 1,000 ML IV ONE
[2020-04-30] MEDS ORDERED: propofoL 200 MG/20 ML VIAL As Ordered ONE ×2 (07:00→10:11)
[2020-04-30] MEDS ORDERED: LIDOCAINE 2% 100MG/5ML SDV (FOR ANES.) As Ordered ONE (07:02)
[2020-04-30] MEDS ORDERED: fentaNYL 100 MCG/2 ML INJECTION (J3010) As Ordered ONE (07:07)
--- NOTE | 2020-04-30 07:51 | ROOR ---
Patient Name: Roland Andrade Procedure Date: 04/30/2020 7:29 AM Date of : 1975 Age: 45 Room: [facility] Gender: Male Note Status: Finalized Procedure: Upper GI endoscopy Indications: Cirrhosis rule out esophageal varices Providers: Clifford Reynolds MD Referring MD: Kulwant Gil MD Requesting Provider: Medicines: Monitored Anesthesia Care Complications: No immediate complications. Procedure: Pre-Anesthesia Assessment: - Prior to the procedure, a History and Physical was performed, and patient medications and allergies were reviewed. The patient is competent. The risks and benefits of the procedure and the sedation options and risks were discussed with the patient. All questions were answered and informed consent was obtained. Patient identification and proposed procedure were verified by the physician, the nurse and the anesthesiologist in the procedure room. Mental Status Examination: alert and oriented. Airway Examination: normal oropharyngeal airway and neck mobility. Respiratory Examination: clear to auscultation. CV Examination: normal. Prophylactic Antibiotics: The patient does not require prophylactic antibiotics. Prior Anticoagulants: The patient has taken no previous anticoagulant or antiplatelet agents. ASA Grade Assessment: III - A patient with severe systemic disease. After reviewing the risks and benefits, the patient was deemed in satisfactory condition to undergo the procedure. The anesthesia plan was to use monitored anesthesia care (MAC). Immediately prior to administration of medications, the patient was re-assessed for adequacy to receive sedatives. The heart rate, respiratory rate, oxygen saturations, blood pressure, adequacy of pulmonary ventilation, and response to care were monitored throughout the procedure. The physical status of the patient was re-assessed after the procedure. The Endoscope was introduced through the mouth, and advanced to the second part of duodenum. The upper GI endoscopy was accomplished without difficulty. The patient tolerated the procedure well. Findings: The Z-line was irregular and was found 39 cm from the incisors. There is no endoscopic evidence of varices in the entire esophagus. Scattered mild inflammation characterized by erythema and granularity was found in the gastric body and in the gastric antrum. Biopsies were taken with a cold forceps for Helicobacter pylori testing. Verification of patient identification for the specimen was done by the physician and nurse using the patient's name, date and medical record number. Estimated blood loss was minimal. The duodenal bulb and second portion of the duodenum were normal. Impression: - Z-line irregular, 39 cm from the incisors. - Gastritis. Biopsied. - Normal duodenal bulb and second portion of the duodenum. Recommendation: - Patient has a contact number available for emergencies. The signs and symptoms of potential delayed complications were discussed with the patient. Return to normal activities tomorrow. Written discharge instructions were provided to the patient. - High fiber diet. - Continue present medications. - Await pathology results. - Repeat upper endoscopy in 3 years for screening purposes. - Telephone GI clinic for pathology results in 2 weeks. - If Biopsy shows H. pylori will need therapy with antibiotic course.. - Return to primary care physician. Clifford Reynolds MD Clifford Reynolds MD 04/30/2020 7:51:04 AM Electronically signed by Clifford Reynolds MD Number of Addenda: 0 Note Initiated On: 04/30/2020 7:29 AM Estimated Blood Loss: Estimated blood loss was minimal.
[2020-04-30 08:18] VITALS: BP 111/68
== END 2020-04-30 08:23 | disposition home or self-care (01) ==
LOC: M OPP 06:59
PROVIDERS: ATTEND Internal Medicine Gastroenterology
DX: K22.8 Other specified diseases of esophagus (principal); K29.70 Gastritis, unspecified, without bleeding; K74.60 Unspecified cirrhosis of liver; I10 Essential (primary) hypertension; F17.210 Nicotine dependence, cigarettes, uncomplicated; Z79.899 Other long term (current) drug therapy; Z88.8 Allergy status to other drugs, medicaments and biological substances
CPT/HCPCS: 43239; 88305; J3010

== ENCOUNTER → 2020-07-17 | Outpatient (REF) | payer OTHER ==
[~2020-07-17] MED LIST changes: -NS 1,000 ML IV ONE
[2020-07-17 13:35] LABS: BASO % 0.4 % (0.0-1.0); EOS # 0.1 10^3/uL (0.0-0.5); EOS % 0.9 % (0.0-3.0); HEMATOCRIT 46.8 % (42.0-52.0); HEMOGLOBIN 15.9 g/dl (13.5-17.5); LYMPH # 2.8 10^3/uL (1.5-5.0); LYMPH % 34.3 % (24.0-44.0); MEAN CORPUSCULAR HEMOGLOBIN 30.8 pg (27.0-33.0); MEAN CORPUSCULAR VOLUME 90.5 fl (80.0-96.0); MONO # 0.5 10^3/uL (0.0-0.8); MONO % 6.4 % (0.0-5.0); NEUTROPHILS # 4.6 10^3/uL (1.5-8.5); NEUTROPHILS % 57.6 % (36.0-66.0); PLATELET COUNT, AUTOMATED 248 10^3/uL (150-450); RED BLOOD COUNT 5.17 10^6/uL (4.30-6.10)
[2020-07-17 13:43] LABS: INR 0.94; PROTHROMBIN TIME 12.8 SECONDS (12.5-14.3)
[2020-07-17 14:05] LABS: ALBUMIN 4.6 GM/DL (3.2-5.2); ALT/SGPT 40 U/L (12-78); BILIRUBIN,TOTAL 0.6 MG/DL (0.2-1.0); BLOOD UREA NITROGEN 20 MG/DL (7-18); CALCIUM LEVEL 10.6 MG/DL (8.5-10.1); CARBON DIOXIDE LEVEL 30 MEQ/L (21-32); CHLORIDE LEVEL 103 MEQ/L (98-107); CREATININE FOR GFR 1.23 MG/DL (0.70-1.30); GLOMERULAR FILTRATION RATE > 60.0 (>60); GLUCOSE, FASTING 111 MG/DL (70-100); POTASSIUM SERUM 4.6 MEQ/L (3.5-5.1); SODIUM LEVEL 140 MEQ/L (136-145); TOTAL PROTEIN 7.4 GM/DL (6.4-8.2)
[2020-07-17 14:39] LABS: FOLATE > 24.0 NG/ML (>5.4); VITAMIN B12 LEVEL 430 PG/ML (247-911)
== END ==
LOC: M SFHCADAM 08:38
PROVIDERS: ATTEND Family Medicine
DX: K70.30 Alcoholic cirrhosis of liver without ascites (principal); I10 Essential (primary) hypertension; G62.1 Alcoholic polyneuropathy

== ENCOUNTER → 2021-01-31 | Outpatient (CLI) | payer OTHER ==
[2021-01-31 08:22] LABS: BASO % 0.4 % (0.0-1.0); EOS # 0.1 10^3/uL (0.0-0.5); EOS % 0.8 % (0.0-3.0); HEMATOCRIT 45.4 % (42.0-52.0); HEMOGLOBIN 15.5 g/dl (13.5-17.5); LYMPH # 3.6 10^3/uL (1.5-5.0); LYMPH % 33.1 % (24.0-44.0); MEAN CORPUSCULAR HEMOGLOBIN 31.6 pg (27.0-33.0); MEAN CORPUSCULAR HGB CONC 34.1 g/dl (32.0-36.5); MEAN CORPUSCULAR VOLUME 92.7 fl (80.0-96.0); MONO # 0.5 10^3/uL (0.0-0.8); NEUTROPHILS # 6.5 10^3/uL (1.5-8.5); NEUTROPHILS % 60.2 % (36.0-66.0); PLATELET COUNT, AUTOMATED 223 10^3/uL (150-450); WHITE BLOOD COUNT 10.8 10^3/uL (4.0-10.0)
[2021-01-31 08:32] LABS: INR 0.94
[2021-01-31 08:47] LABS: ALBUMIN 3.9 GM/DL (3.2-5.2); ALT/SGPT 42 U/L (12-78); BILIRUBIN,TOTAL 0.4 MG/DL (0.2-1.0); BLOOD UREA NITROGEN 10 MG/DL (7-18); CALCIUM LEVEL 9.4 MG/DL (8.5-10.1); CARBON DIOXIDE LEVEL 29 MEQ/L (21-32); CHLORIDE LEVEL 109 MEQ/L (98-107); CHOLESTEROL LEVEL 195 MG/DL (<200); GLOMERULAR FILTRATION RATE > 60.0 (>60); GLUCOSE, FASTING 93 MG/DL (70-100); HDL CHOLESTEROL 39 MG/DL (>40); LDL CHOLESTEROL 122 MG/DL (<100); NON-HDL-C 156 MG/DL; POTASSIUM SERUM 4.5 MEQ/L (3.5-5.1); SODIUM LEVEL 140 MEQ/L (136-145); TOTAL PROTEIN 6.7 GM/DL (6.4-8.2); TRIGLYCERIDES LEVEL 168 MG/DL (<150)
[2021-01-31 12:08] LABS: FOLATE 15.4 NG/ML (>5.4)
[2021-01-31 14:00] LABS: VITAMIN B12 LEVEL 333 PG/ML (247-911)
== END ==
LOC: M LAB 07:10
PROVIDERS: ATTEND Family Medicine
DX: G62.1 Alcoholic polyneuropathy (principal); K70.30 Alcoholic cirrhosis of liver without ascites; I10 Essential (primary) hypertension

== ENCOUNTER → 2021-08-30 | Outpatient (CLI) | payer OTHER ==
[~2021-08-30] MED LIST changes: -FLUV100T2 PO; +FLUV100T25 PO; -KLOR10TA76 PO; +POTA-136 PO
[2021-08-30 07:31] LABS: HEMATOCRIT 45.3 % (42.0-52.0); HEMOGLOBIN 15.4 g/dl (13.5-17.5); MEAN CORPUSCULAR VOLUME 91.3 fl (80.0-96.0); PLATELET COUNT, AUTOMATED 234 10^3/uL (150-450); RED BLOOD COUNT 4.96 10^6/uL (4.30-6.10); WHITE BLOOD COUNT 7.4 10^3/uL (4.0-10.0)
[2021-08-30 07:41] LABS: INR 0.87; PROTHROMBIN TIME 12.2 SECONDS (12.7-14.5)
[2021-08-30 08:02] LABS: ALBUMIN 3.9 GM/DL (3.2-5.2); ALT/SGPT 48 U/L (12-78); BILIRUBIN,TOTAL 0.5 MG/DL (0.2-1.0); BLOOD UREA NITROGEN 18 MG/DL (7-18); CALCIUM LEVEL 9.5 MG/DL (8.5-10.1); CARBON DIOXIDE LEVEL 31 MEQ/L (21-32); CHLORIDE LEVEL 103 MEQ/L (98-107); CREATININE FOR GFR 1.03 MG/DL (0.70-1.30); GLOMERULAR FILTRATION RATE > 60.0 (>60); GLUCOSE, FASTING 94 MG/DL (70-100); POTASSIUM SERUM 4.4 MEQ/L (3.5-5.1); SODIUM LEVEL 137 MEQ/L (136-145); TOTAL PROTEIN 6.8 GM/DL (6.4-8.2)
== END ==
LOC: M LAB 06:43
PROVIDERS: ATTEND Family Medicine
DX: K70.30 Alcoholic cirrhosis of liver without ascites (principal)

== ENCOUNTER 2021-12-28 15:55 | Emergency (ER) | payer OTHER ==
[~2021-12-28] VITALS: Ht 165.1 cm; Wt 91.4 kg
[2021-12-28 15:56] VITALS: BP 127/69
== END 2021-12-28 18:52 | disposition home or self-care (01) ==
LOC: M ED 15:55
DX: M25.422 Effusion, left elbow (principal); I10 Essential (primary) hypertension; E78.5 Hyperlipidemia, unspecified; K70.0 Alcoholic fatty liver; G62.9 Polyneuropathy, unspecified; F17.290 Nicotine dependence, other tobacco product, uncomplicated; Z79.899 Other long term (current) drug therapy; Z88.8 Allergy status to other drugs, medicaments and biological substances

== ENCOUNTER → 2022-01-20 | Outpatient (CLI) | payer OTHER | LOC: M SOG 09:34 | PROVIDERS: ATTEND Orthopaedic Surgery | DX: S52.135A Nondisplaced fracture of neck of left radius, initial encounter for closed fracture (principal) ==

== ENCOUNTER 2022-02-23 14:34 | Emergency (ER) | payer OTHER ==
[~2022-02-23] VITALS: Ht 165.1 cm; Wt 85.4 kg
[2022-02-23 14:35] VITALS: BP 119/74
== END 2022-02-23 18:53 | disposition left against medical advice (07) ==
LOC: M ED 16:09
DX: Z53.21 Procedure and treatment not carried out due to patient leaving prior to being seen by health care provider (principal)

== ENCOUNTER → 2022-02-28 | Outpatient (CLI) | payer OTHER ==
[2022-02-28 07:46] LABS: HEMATOCRIT 44.2 % (42.0-52.0); HEMOGLOBIN 15.4 g/dl (13.5-17.5); MEAN CORPUSCULAR HEMOGLOBIN 32.3 pg (27.0-33.0); MEAN CORPUSCULAR HGB CONC 34.8 g/dl (32.0-36.5); MEAN CORPUSCULAR VOLUME 92.7 fl (80.0-96.0); PLATELET COUNT, AUTOMATED 232 10^3/uL (150-450); RED BLOOD COUNT 4.77 10^6/uL (4.30-6.10); WHITE BLOOD COUNT 7.3 10^3/uL (4.0-10.0)
[2022-02-28 08:34] LABS: ALBUMIN 3.9 GM/DL (3.2-5.2); ALT/SGPT 32 U/L (12-78); BILIRUBIN,TOTAL 0.3 MG/DL (0.2-1.0); BLOOD UREA NITROGEN 13 MG/DL (7-18); CALCIUM LEVEL 9.8 MG/DL (8.5-10.1); CARBON DIOXIDE LEVEL 29 MEQ/L (21-32); CHLORIDE LEVEL 104 MEQ/L (98-107); CREATININE FOR GFR 1.14 MG/DL (0.70-1.30); FREE T4 0.91 NG/DL (0.76-1.46); GLOMERULAR FILTRATION RATE > 60.0 (>60); GLUCOSE, FASTING 98 MG/DL (70-100); POTASSIUM SERUM 4.4 MEQ/L (3.5-5.1); SODIUM LEVEL 137 MEQ/L (136-145); TOTAL PROTEIN 6.7 GM/DL (6.4-8.2)
== END ==
LOC: M LAB 07:12
PROVIDERS: ATTEND Family Medicine
DX: K70.30 Alcoholic cirrhosis of liver without ascites (principal); F90.9 Attention-deficit hyperactivity disorder, unspecified type

== ENCOUNTER → 2022-08-18 | Outpatient (CLI) | payer BC ==
[2022-08-18 08:28] LABS: HEMATOCRIT 45.2 % (42.0-52.0); HEMOGLOBIN 15.5 g/dl (13.5-17.5); MEAN CORPUSCULAR HEMOGLOBIN 31.7 pg (27.0-33.0); MEAN CORPUSCULAR HGB CONC 34.3 g/dl (32.0-36.5); MEAN CORPUSCULAR VOLUME 92.4 fl (80.0-96.0); PLATELET COUNT, AUTOMATED 296 10^3/uL (150-450); RED BLOOD COUNT 4.89 10^6/uL (4.30-6.10); WHITE BLOOD COUNT 8.3 10^3/uL (4.0-10.0)
[2022-08-18 08:38] LABS: INR 0.91; PROTHROMBIN TIME 12.5 SECONDS (12.5-14.5)
[2022-08-18 08:56] LABS: ALBUMIN 4.2 G/DL (3.2-5.2); ALKALINE PHOSPHATASE 60 U/L (46-116); ALT/SGPT 39 U/L (7.0-40); AST/SGOT 27 U/L (<34); BILIRUBIN,TOTAL 0.6 MG/DL (0.3-1.2); BLOOD UREA NITROGEN 17 MG/DL (9-23); CALCIUM LEVEL 9.3 MG/DL (8.5-10.1); CARBON DIOXIDE LEVEL 29 MMOL/L (20-31); CHLORIDE LEVEL 104 MMOL/L (98-107); CHOLESTEROL LEVEL 181 MG/DL (<200); CREATININE FOR GFR 1.02 MG/DL (0.70-1.30); GLOMERULAR FILTRATION RATE > 60.0 (>60); GLUCOSE, FASTING 99 MG/DL (60-100); HDL CHOLESTEROL 48.9 MG/DL (>40); LDL CHOLESTEROL 111.7 MG/DL (<100); NON-HDL-C 132 MG/DL; POTASSIUM SERUM 4.2 MMOL/L (3.5-5.1); SODIUM LEVEL 138 MMOL/L (136-145); TRIGLYCERIDES LEVEL 102 MG/DL (<150)
[2022-08-18 09:30] LABS: HEMOGLOBIN A1c 5.2 % (4.0-6.0)
[2022-08-18 09:37] LABS: FREE T4 0.97 NG/DL (0.89-1.76); THYROID STIMULATING HORMONE 1.003 uIU/ML (0.55-4.78)
== END ==
LOC: M LAB 07:40
PROVIDERS: ATTEND Family Medicine
DX: K70.30 Alcoholic cirrhosis of liver without ascites (principal); E78.2 Mixed hyperlipidemia; G62.1 Alcoholic polyneuropathy

== ENCOUNTER → 2023-12-11 | Outpatient (CLI) | payer BC ==
[~2023-12-11] MED LIST changes: -OXYC1CAP PO; +OXYC1CAP2 PO
[2023-12-11 09:24] LABS: CHOLESTEROL RISK RATIO 5.44 (<5); HDL CHOLESTEROL 41.3 MG/DL (>40); LDL CHOLESTEROL 147.7 MG/DL (<100); NON-HDL-C 183.7 MG/DL
== END ==
LOC: M LAB 08:04
PROVIDERS: ATTEND Family Medicine
DX: E78.2 Mixed hyperlipidemia (principal)

== ENCOUNTER → 2024-01-13 | Outpatient (CLI) | payer BC | LOC: M RAD 08:50 | PROVIDERS: ATTEND Family Medicine | DX: K70.30 Alcoholic cirrhosis of liver without ascites (principal) ==

== ENCOUNTER → 2024-06-02 | Outpatient (REF) | payer BC ==
[~2024-06-02] MED LIST changes: +GABA-1635; -GABA800T4; -LACT10SO3 PO; +LACT10SO94 PO
[2024-06-06 12:48] LABS: MUMPS VIRUS IgG ANTIBODY < 9.00 AU/mL (>10.99)
== END ==
LOC: M SFHCADAM 12:54
PROVIDERS: ATTEND Family Medicine
DX: Z01.84 Encounter for antibody response examination (principal)

== ENCOUNTER → 2024-06-08 | Outpatient (REF) | payer BC ==
[2024-06-08 17:18] LABS: ALBUMIN 4.4 G/DL (3.2-5.2); ALKALINE PHOSPHATASE 63 U/L (40-129); ALT/SGPT 61 U/L (7.0-40); AST/SGOT 38 U/L (<34); BILIRUBIN,TOTAL 0.6 MG/DL (0.3-1.2); BLOOD UREA NITROGEN 9 MG/DL (9-23); CALCIUM LEVEL 10.5 MG/DL (8.5-10.1); CARBON DIOXIDE LEVEL 30 MMOL/L (20-31); CHLORIDE LEVEL 104 MMOL/L (98-107); CHOLESTEROL LEVEL 235 MG/DL (<200); CHOLESTEROL RISK RATIO 5.64 (<5); CREATININE FOR GFR 0.89 MG/DL (0.70-1.30); GLOMERULAR FILTRATION RATE > 60.0 (>56); GLUCOSE, FASTING 86 MG/DL (60-100); HDL CHOLESTEROL 41.6 MG/DL (>40); LDL CHOLESTEROL 136.6 MG/DL (<100); NON-HDL-C 193.4 MG/DL; POTASSIUM SERUM 4.1 MMOL/L (3.5-5.1); SODIUM LEVEL 142 MMOL/L (136-145); TOTAL PROTEIN 7.5 G/DL (5.7-8.2); TRIGLYCERIDES LEVEL 284 MG/DL (<150)
[2024-06-08 17:19] LABS: FOLATE 6.36 NG/ML (>5.4)
[2024-06-08 17:20] LABS: VITAMIN B12 LEVEL 272 PG/ML (211-911)
[2024-06-08 17:35] LABS: INR 0.91; PROTHROMBIN TIME 12.5 SECONDS (12.5-14.5)
[2024-06-08 17:36] LABS: HEMATOCRIT 45.4 % (42.0-52.0); HEMOGLOBIN 15.6 g/dl (13.5-17.5); HEMOGLOBIN A1c 5.2 % (4.0-6.0); MEAN CORPUSCULAR HEMOGLOBIN 32.3 pg (27.0-33.0); MEAN CORPUSCULAR HGB CONC 34.4 g/dl (32.0-36.5); PLATELET COUNT, AUTOMATED 319 10^3/uL (150-450); RED BLOOD COUNT 4.83 10^6/uL (4.30-6.10); WHITE BLOOD COUNT 11.3 10^3/uL (4.0-10.0)
== END ==
LOC: M SFHCADAM 13:34
PROVIDERS: ATTEND Family Medicine
DX: K70.30 Alcoholic cirrhosis of liver without ascites (principal); E78.2 Mixed hyperlipidemia; G62.1 Alcoholic polyneuropathy

== ENCOUNTER → 2025-05-29 | Outpatient (CLI) | payer BC ==
[~2025-05-29] MED LIST changes: +FLUV100T20 PO; -FLUV100T25 PO
[2025-05-29 09:57] LABS: PLATELET COUNT, AUTOMATED 304 10^3/uL (150-450)
[2025-05-29 10:20] LABS: ESTIMATED AVERAGE GLUCOSE 105.0 MG/DL (60-110)
[2025-05-29 10:21] LABS: PSA SCREENING 0.10 NG/ML (< 4.00)
[2025-05-29 10:25] LABS: ALT/SGPT 41 U/L (7.0-40); AST/SGOT 25 U/L (<34); CALCIUM LEVEL 9.9 MG/DL (8.5-10.1); CARBON DIOXIDE LEVEL 30 MMOL/L (20-31); CHLORIDE LEVEL 106 MMOL/L (98-107); CHOLESTEROL LEVEL 223 MG/DL (<200); CHOLESTEROL RISK RATIO 3.91 (<5); CREATININE FOR GFR 1.11 MG/DL (0.70-1.30); GLOMERULAR FILTRATION RATE 79.9 (>56); LDL CHOLESTEROL 124.3 MG/DL (<100); NON-HDL-C 166.1 MG/DL; POTASSIUM SERUM 4.8 MMOL/L (3.5-5.1); SODIUM LEVEL 142 MMOL/L (136-145); TRIGLYCERIDES LEVEL 209 MG/DL (<150)
== END ==
LOC: M LAB 09:05
PROVIDERS: ATTEND Family Medicine
DX: K70.30 Alcoholic cirrhosis of liver without ascites (principal); Z12.5 Encounter for screening for malignant neoplasm of prostate; Z13.1 Encounter for screening for diabetes mellitus; E78.2 Mixed hyperlipidemia
CPT/HCPCS: 36415; 80053; 80061; 82105; 83036; 85027; G0103